=== PATIENT | female | born 1975 | race Caucasian/White ===

== ENCOUNTER 2024-04-21 13:50 | Emergency (ER) | payer OTHER, SELFPAY ==
[2024-04-21 14:11] VITALS: BP 159/77; PULSE 63; RESP 16; TEMP 36.6; O2SAT 100
--- NOTE | 2024-04-21 14:54 | ED_ITS ---
HPI - Eye Problem General Chief complaint: Eye Problems Stated complaint: Right Eye Pain Time Seen by Provider: 04/21/24 14:45 Source: patient, RN notes reviewed and old records reviewed Mode of arrival: ambulatory Limitations: no limitations History of Present Illness HPI Narrative: 48 year old female presents to express care with complaints of right eye becoming red with some mucous drainage and today her left eye is also having some redness and was crusted this morning. Patient reports some discomfort to her eyes denies any sharp pain or any visual changes states some light sensitivity.Patient reports that she has used warm and cold compresses to her eyes. chief complaint: eye redness Onset (ago): day(s) (Thursday right eye 2 days today left eye) Eye Symptoms: redness, discharge, photophobia and other (some discomfort) Severity scale (1-10): 4 Treatments Prior to Arrival: other (warm and cold compresses) Related Data Home Medications Medication Instructions Recorded Confirmed aspirin 81 mg tablet,delayed 81 mg PO DAILY 04/21/24 04/21/24 release glipizide 5 mg tablet 5 mg PO DAILY 04/21/24 04/21/24 levothyroxine 100 mcg tablet 100 mcg PO DAILY 04/21/24 04/21/24 naproxen 500 mg tablet 500 mg PO BID 04/21/24 04/21/24 rosuvastatin 40 mg tablet 40 mg PO DAILY 04/21/24 04/21/24 valacyclovir 500 mg tablet 500 mg PO DAILY 04/21/24 04/21/24 Allergies Allergy/AdvReac Type Severity Reaction Status Date / Time No Known Allergies Allergy Verified 04/21/24 14:10 Review of Systems Review of Systems: CONSTITUTIONAL: Denies fever, chills, or sweats. EYES: Denies visual changes. Reports redness,, irritation, discharge to bilateral eyes with some discomfort and photophobia ENT: Denies rhinorrhea, congestion, sore throat, or otalgia. CARDIOVASCULAR: Denies chest pain, palpitations, or edema. RESPIRATORY: Denies cough or dyspnea. SKIN: Denies rash or itching. NEUROLOGIC: Denies headache All systems reviewed & are unremarkable except as noted in HPI and below PMFSH Past Medical History Medical History (Updated 04/26/24 @ 10:25 by Sasha Markham NP) Diabetes Elevated cholesterol Hypertension Hypothyroid Social History Social History (Updated 04/26/24 @ 10:19 by Sasha Markham NP) Smoking status: Smoker, status unknown Alcohol intake: unknown Substance use: unknown Gender identity (if verbalized by the patient): Female Comments At time of signature, agree with nursing past medical, surgical, social and family history. There is no relevant family history pertinent to the presenting complaint Exam Narrative: GENERAL: Well-appearing, well-nourished, and in no acute distress. HEAD: Normocephalic, atraumatic. EYES: PERRLA and EOMI. Upper and lower eyelids unremarkable. No periorbital cellulitis noted. Sclera and conjunctivae injected bilateral eyes with mucous discharge, no acute eye pain no visual changes, reports some photosensitivity ENT: Nares clear, no rhinorrhea or epistaxis. Mucous membranes moist. NECK: Supple. no lymphadenopathy CHEST: Clear to auscultation. No respiratory distress. SAO2 100% on room air HEART: Regular rate and rhythm. No murmur heard. Normal peripheral pulses. SKIN: Warm, dry, no rash. NEURO: No focal deficits. Alert and oriented x3. Course Course Emergency Course: Patient is aware of diagnosis, understands and agrees to treatment plan. Anticipatory guidance given. Patient agrees to follow-up as directed and is aware of reasons to seek care at the emergency department. Portions of this record may have been created with voice recognition software Level of Care: Express Care Visit Vital Signs Vital signs: Vital Signs Temperature 36.6 C 04/21/24 14:11 Pulse Rate 63 04/21/24 14:11 Respiratory Rate 16 04/21/24 14:11 Blood Pressure 159/77 H 04/21/24 14:11 Pulse Oximetry 100 04/21/24 14:11 Oxygen Delivery Room Air 04/21/24 14:11 Temperature 36.6 C 04/21/24 14:11 Pulse Rate 63 04/21/24 14:11 Respiratory Rate 16 04/21/24 14:11 Blood Pressure 159/77 H 04/21/24 14:11 Pulse Oximetry 100 04/21/24 14:11 Oxygen Delivery Room Air 04/21/24 14:11 Reviewed MDM - Eye Problem MDM Narrative Medical decision making narrative: Consideration of the following conditions may be warranted for the presenting problem, they are not final diagnoses: Bacterial conjunctivitis, allergic conjunctivitis, viral conjunctivitis, foreign body, blepharitis, chalazion, hordeolum, corneal abrasion.? Exam findings show no acute concerns or changes; patient is non-toxic appearing and is in no distress.? Patient is appropriate for outpatient treatment and follow-up. Differential Diagnosis Differential diagnosis: Likely conjunctivitis, subconjunctival hemorrhage and other (Mucous drainage right eye) Medical Records Attestation: I reviewed the patient's medical records. Critical Care Time Critical Care Time Critical Care Time: No Discharge Plan Discharge Clinical Impression: Conjunctivitis Patient Disposition: Home, Self-Care Condition: Stable Instructions: Antibiotic Form, How to Use Eye Drops (ED), Conjunctivitis (ED) Additional Instructions: Cold compresses to the eyes for comfort May need warm compresses to remove debris in the morning When cleaning the eyes used a washcloth in one direction then change washcloths or use a cotton ball in one direction and then his cotton balls Eyedrops as directed--may be more soothing if left in the refrigerator Do not share medicine--do not touch the eye with the medicine Tylenol or ibuprofen for pain Avoid screen time--television, computer, tablet or phone. Also no reading or driving Follow-up with PCP or regulatory process manager as directed 48 hours If your symptoms persist, change or worsen significantly before you can contact your personal physician then please, without delay, go to the emergency department for further evaluation. Follow-up with PCP in 7-10 days or sooner if needed Follow up with PCP soon in regards to your blood pressure which is elevated above threshold for referral. Blood pressure above 120/80 may indicate pre- hypertension. 159/77 Prescriptions: New ofloxacin 0.3 % drops See Rx Instructions .ROUTE .COMPLEX Qty: 10 0RF Rx Instructions: put 1-2 drps into affected eye(s) every 2-4 h x 2 days, then 1-2 drps 4 times/day days 3-7 No Action valacyclovir 500 mg tablet 500 mg PO DAILY aspirin 81 mg tablet,delayed release (DR/EC) 81 mg PO DAILY levothyroxine 100 mcg tablet 100 mcg PO DAILY glipizide 5 mg tablet 5 mg PO DAILY naproxen 500 mg tablet 500 mg PO BID rosuvastatin 40 mg tablet 40 mg PO DAILY Follow-up/Referrals: PHYSICIAN NOT ON STAFF,NONSTAFF [Primary Care Provider] - Time of Disposition: 14:57 Quality Jeniffer Coma Scale Eyes: Open Verbal: Oriented and Alert Motor: Follows Commands Jeniffer Coma Total Score: 15
== END 2024-04-21 15:01 | disposition home or self-care (01) ==
PROVIDERS: Emergency Provider Registered Nurse
DX: H10.9 Unspecified conjunctivitis (principal); Z79.82 Long term (current) use of aspirin
CPT/HCPCS: 99203; G0463

== ENCOUNTER 2024-12-27 18:25 | Emergency (ER) | payer OTHER, SELFPAY ==
[2024-12-27 18:27] VITALS: BP 143/72; PULSE 77; RESP 20; TEMP 36.8; O2SAT 100
--- OUTSIDE RECORDS SUMMARY | 2024-12-27 18:27 | XMS_ITS | Referral Summary ---
Author Organization [facility] Address [address] [place] [address] Care Team Providers Care Marine Safety Officer Name Role Phone Marzena Gomes BOWLING [employer]LEY FLOORS INSTALLER Primary Care Provider Allergies Active Allergy Reactions Criticality Noted Date Comments Morphine Anaphylaxis High 04/18/2024 Medications ALPRAZOLAM ORALIndications:an xiety Take 1 mg by mouth 3 (three) times a day as needed Active amLODIPine (NORVASC) 5 mg tablet Take 1 tablet (5 mg total) by mouth daily 30 tablet 11 06/04/20 19 Active metoprolol XL (TOPROL-XL) 50 mg 24 hr tablet Take 1 tablet (50 mg total) by mouth daily 30 tablet 11 06/04/20 19 Active nitroglycerin (NITROSTAT) 0.4 mg SL tabletIndications: Chest Pain Place 1 tablet (0.4 mg total) under the tongue every 5 (five) minutes as needed for chest pain for up to 1 dose 90 tablet 2 06/03/20 19 Active acyclovir (ZOVIRAX) 400 mg tablet Take 1 tablet (400 mg total) by mouth daily 03/10/20 17 Active cyclobenzaprine (FLEXERIL) 10 mg tablet Take 1 tablet (10 mg total) by mouth 3 (three) times a day as needed 06/14/20 19 Active docosanol (ABREVA) 10 % cream Apply topically 5 (five) times a day 04/07/20 18 Active blood glucose diagnostic strip 1 each by Not Applicable route daily 02/10/20 19 Active blood glucose diagnostic (glucose blood) strip Test blood sugar 4x daily. 06/07/20 19 Active blood glucose diagnostic (OneTouch Ultra Blue Test Strip) strip by Not Applicable route 4 (four) times a day 08/17/19 21 Active OneTouch Delica Plus Lancet 33 gauge misc USE TO TEST BLOOD GLUCOSE FOUR TIMES DAILY DIRECTED 08/17/19 21 Active TechLITE Pen Needle 32 gauge x 5/32 needle USE FOUR TIMES DAILY DIRECTED 08/18/19 21 Active ondansetron ODT (ZOFRAN-ODT) 4 mg disintegrating tablet Dissolve 1 tablet oral every 4 hours as needed for nausea or vomiting. 15 tablet 08/29/19 22 Active rosuvastatin (CRESTOR) 40 mg tablet TAKE 1 TABLET(40 MG) BY MOUTH DAILY 90 tablet 3 10/01/19 23 Active metoclopramide (REGLAN) 10 mg tablet Take 1 tablet (10 mg total) by mouth every 8 (eight) hours as needed (nausea and vomiting) for up to 5 days 15 tablet 05/05/20 23 Active Additional Information Patient not taking.Reported on 03/29/2024 pen needle, diabetic (BD Ultra-Fine Short Pen Needle) 31 gauge x 5/16 needle Active blood-glucose meter,continuous (Dexcom G6 Toy Painter) misc USE DIRECTED BY OFFICE Active NAPROXEN, BULK, MISC Take 400 mg by mouth 2 (two) times a day Active blood-glucose transmitter (Dexcom G6 Transmitter) device 1 Device continuously Use to monitor blood sugar continuously, change every 90 days e11.65 1 each 3 05/24/20 24 Active blood-glucose sensor device Use to continuously monitor glucose, change every 10 days 9 each 3 05/25/20 24 Active gabapentin (NEURONTIN) 300 mg capsule Take 1 capsule (300 mg total) by mouth 2 (two) times a day 60 capsule 1 06/29/19 25 Active insulin lispro (HumaLOG, ADMELOG) 100 unit/mL pen for injection Take 3 times daily with meals according to sliding scale. Total maximum daily dose is 30 units. 9 mL 3 07/11/19 25 Active ergocalciferol (VITAMIN D) 50,000 unit capsule Take 1 capsule (50,000 Units total) by mouth 07/06/[address] (VOLTAREN) 75 mg EC tablet TAKE 1 TABLET BY MOUTH TWICE DAILY FOR 14 DAYS NEEDED FOR PAIN 07/07/19 25 Active levothyroxine (SYNTHROID) 100 mcg tablet Take 1 tablet (100 mcg total) by mouth every morning Active lisinopril-hydroCH LOROthiazide (ZESTORETIC) 20-25 mg per tablet Take 1 tablet by mouth daily 07/06/19 25 Active aspirin 81 mg enteric coated tablet Take 1 tablet (81 mg total) by mouth daily 06/29/19 25 Active tirzepatide (Mounjaro) 2.5 mg/0.5 mL pen injector injection Inject 0.5 mL (2.5 mg total) under the skin once a week 2 mL 6 07/19/19 25 Active glipiZIDE XL (GLUCOTROL XL) 10 mg 24 hr tabletIndications: type 2 diabetes mellitus Take 1 tablet (10 mg total) by mouth daily 30 tablet 11 07/19/19 25 026 Active insulin glargine 100 unit/mL (3 mL) pen for injection Inject 25 units under the skin once daily 20 mL 6 08/01/19 25 Active Active Problems Problem Noted Date Diagnosed Date Severe obesity 04/18/2024 Impingement syndrome of left shoulder 11/14/2020 Arthritis of left acromioclavicular joint 2020 Biceps tendinitis of left upper extremity 2020 Bilateral carotid artery stenosis 05/25/2020 Assessment & Plan (05/25/2020 11:26 AM POWER LINE INSTALLER): Patient's carotid disease was mild and probably only needs every 2-3 year follow-up with ultrasound. 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 If no evidence of ischemia or new wall motion abnormality is present, no further cardiovascular workup will be required. We will tentatively review her care on an annual or as-needed basis. Assessment & Plan (06/03/2019 4:02 AM POWER LINE INSTALLER): Concerning for cardiac etiology. Patient has risk factors including uncontrolled diabetes, hypertension, hyperlipidemia, obesity and tobacco use. Patient's grandparents also had MIs. Troponins negative x4. Will order a stress test. Cardiology was consulted. P.r.n. Nitroglycerin which seems to help patient's pain. Uncontrolled type 2 diabetes mellitus with hyper glycemia 06/03/2019 Assessment & Plan (06/03/2019 4:05 AM POWER LINE INSTALLER): Secondary to noncompliance. Patient is supposed to be on 36 units of Lantus q.h.s., 26 units of lispro t.i.d. Meals with a sliding scale. Patient stopped taking her medications a few months ago for no reason. Patient follows with Dr. Bullard. Sugars were as high as 400 at home. Currently improved. Will continue with mid dose sliding scale. Patient is NPO for stress test. Will resume Lantus at 29 units nightly this evening. Continue to monitor. Patient was counseled on the importance of compliance with insulin regimen for blood sugar controlled to prevent complications including blindness, kidney disease needing dialysis, neuropathy. Essential hypertension 06/03/2019 Assessment & Plan (06/03/2019 4:04 AM POWER LINE INSTALLER): Pressures are under control. Will continue metoprolol with hold parameters. Will hold lisinopril and hydrochlorothiazide for now as I suspect patient may be dehydrated due to hyperglycemia and will be receiving IV fluids. Will continue to monitor. Mixed hyperlipidemia 06/03/2019 Assessment & Plan (06/03/2019 4:00 AM POWER LINE INSTALLER): Continue Lipitor Class 2 obesity in adult 06/03/2019 Lactic acidosis 06/03/2019 Assessment & Plan (06/03/2019 4:14 AM POWER LINE INSTALLER): Suspect this is from dehydration from hyperglycemia. Currently resolved. Class 3 severe obesity due t o excess calories with serious comorbidity and body mass index (BMI) of 40.0 to 44.9 in adult 02/07/2019 Right upper quadrant abdominal pain 07/14/2018 Neck pain 04/07/2018 Diabetic ketoacidosis with c francisco associated with type 1 diabetes mellitus 07/12/2017 Assessment & Plan (07/12/2017 8:31 PM POWER LINE INSTALLER): The patient is type 1 diabetic follows up with Endocrinology per patient's report poorly-controlled blood sugars had been all over the places. Will check hemoglobin A1c and TSH T4 magnesium and phosphorus. Admitted for DKA protocol Insulin drip, IV fluid bolus with normal saline followed with a continuous infusion with normal saline. BMP every 2 hr to follow up for the electrolyte imbalances and replace as needed. Switch to D5 half-normal saline when blood sugars to he the will cross cover with subcutaneous short-acting insulin before turning off the insulin drip Will keep her NPO for now and advance her diet diet when she is more awake Vaginal itching 07/12/2017 Assessment & Plan (07/12/2017 8:32 PM POWER LINE INSTALLER): In the setting of diabetes probably Marlena vaginitis. Post started already on fluconazole. She continues having significant itching also will treat with a topical miconazole vaginally. Metabolic acidosis 07/12/2017 Assessment & Plan (07/12/2017 8:35 PM POWER LINE INSTALLER): Likely multifactorial possible UTI in the setting of significantly elevated white blood cell count. Patient was started already on Rocephin will continue with that. Patient was unable to void yet- will get the urine sample and follow up with urine culture results. On physical exam patient with significant suprapubic and CVA tenderness. Suspect concomitant pyelonephritis. Will get blood cultures as well. Leukocytosis 07/12/2017 Assessment & Plan (07/12/2017 8:56 PM POWER LINE INSTALLER): The so far not identified source of infection suspect UTI versus pyelonephritis. Patient was complaining of earache however ear exams are normal. The started on Rocephin will continue with that strict I&Os urine cultures and blood cultures to be obtained Streaked tight stenosis If urine output is still down and I been able to void will give her another bolus of IV fluids with normal saline 1000 cc Diarrhea 07/12/2017 Assessment & Plan (07/12/2017 8:55 PM POWER LINE INSTALLER): New onset diarrhea , no previous history of chronic diarrhea . Patient denies any recent antibiotic use. No recent hospitalizations. Possibly infectious will check stool studies, will get flu swab Hyperkalemia 07/12/2017 Assessment & Plan (07/12/2017 8:55 PM POWER LINE INSTALLER): In the setting or diabetic ketoacidosis. Likely due to elevated blood sugars. Correct underlying cause monitor with BMP every 2 hr and replace as needed per hypokalemia protocol Dehydration 07/12/2017 Assessment & Plan (07/12/2017 8:54 PM POWER LINE INSTALLER): Multifactorial due to uncontrolled type 1 diabetes with DKA possible UTI and diarrhea. IV fluids strict I&Os correct underlying causes Sepsis 07/12/2017 Overview (07/12/2017): Assessment & Plan (07/12/2017 9:03 PM POWER LINE INSTALLER): Patient meets the criteria for sepsis with elevated white blood cell count hypertension tachycardia fever. Suspect urosepsis. Will obtain blood cultures, urine cultures are pending. Repeat ABGs and check lactate Started on Rocephin. Blood pressure on lower side will bolus with normal saline 1000 cc STAT NOW, strict I&Os Pharyngeal disorder 04/07/2016 Left-sided low back pain without sciatica 2015 Arthralgia of both elbows 05/24/2015 Type 2 diabetes mellitus wit h microalbuminuria, with long-term current use of insulin 05/08/2015 Anxiety 05/04/2015 Diabetic ketoacidosis withou t coma associated with type 1 diabetes mellitus Resolved Problems Problem Noted Date Diagnosed Date Resolved Date Bilateral carotid bruits 07/19/201909/2019 Immunizations Immunization Administration Dates Next Due Influenza, Quadrivalent, Spl it, Preservative Free, Intramuscular 06/03/2019 Social History Tobacco Use Types Packs/Day Years Used Date Smoking Tobacco: Some Days Cigarettes Smokeless Tobacco: Never Tobacco Cessation:Ready to Q uit: Not Asked; Counseling Given: Not Answered Comments:less than 5 cigs per week Alcohol Use Standard Drinks/Week Comments Yes 0 (1 standard drink = 0.6 oz pur e alcohol) AUDIT-C Answer Date Recorded Frequency of Alcohol Consumption 2-4 times a thu06/02/2019 Average Number of Drinks 7 to 9 019 Frequency of Binge Drinking Monthly 05/22 Personal Safety Answer Date Recorded Have you ever been in or are you currently in a harmful physical or emotional relationship or is someone making you feel afraid or unsafe? Denies 04/25/2024 Comments No Sex and Gender Information Value Date Recorded Sex Assigned at Not on file Legal Sex Female 4:49 PM POWER LINE INSTALLER Gender Identity Not on file Sexual Orientation Not on file Last Filed Vital Signs Vital Sign Reading Time Taken Comments Blood Pressure 132/62 07/19/2024 4:08 PM POWER LINE INSTALLER Pulse 63 06/29/2024 2:45 PM POWER LINE INSTALLER Temperature 36.6 C (97.9 F) 04/25/2024 4:51 PM POWER LINE INSTALLER Respiratory Rate 18 04/25/2024 9:45 PM POWER LINE INSTALLER Oxygen Saturation 97% 04/25/2024 9:45 PM POWER LINE INSTALLER Inhaled Oxygen Concentration - - Weight 108.7 kg (239 lb 11.2 oz) 07/19/2024 4:08 PM POWER LINE INSTALLER Height 165.1 cm (5' 5) 07/19/2024 4:08 PM POWER LINE INSTALLER Body Mass Index 39.89 07/19/2024 4:08 PM POWER LINE INSTALLER Plan of Treatment Not on file Medical Devices Implanted Type Area Manager Image Device Identifier Shelf Expiration Date Model / Serial / Lot [employer] [id number] Angio-Seal Evolution 6fr .035in Guidewire Bypass Tube Suture - [id number] Implanted:Qty: 1 on 06/03/2019 by Neeraj Alvarado MD at [facility] Other - see comments [employer] 01/20/2020 [id number] / / [id number] Procedures Procedure Name Priority Date/Time Associated Diagnosis Comments POCT HEMOGLOBIN A1C Routine 07/19/2024 4 :15 PM POWER LINE INSTALLER Type 2 diabetes mellitus with hyperglycemia, with long-term current use of insulin (HCC) EGFR STAT 04/25/2024 5:09 PM POWER LINE INSTALLER RETINAVUE SCANNER - OU - BOTH EYES Routine 04/18/2024 Type 2 diabetes mellitus with hyperglycemia, with long-term current use of insulin (HCC) LIPID PANEL Routine 06/03/2019 1:25 AM POWER LINE INSTALLER TSH STAT 06/02/2019 4:14 PM POWER LINE INSTALLER from Last 3 Months or Most Recently Relevant to Health Maintenance Results * (ABNORMAL) POCT hemoglobin A1c (07/19/2024 4:15 PM POWER LINE INSTALLER) Hemoglobin A1C, POC 10.2 4.0 - 5.6 % Blood 07/19/2024 4:15 PM POWER LINE INSTALLER us Екатерина Doran DO POINT OF CARE TEST ORDERABL ES Final Result * eGFR (04/25/2024 5:09 PM POWER LINE INSTALLER) eGFR >90 >=60 mL/min/1. 73 m2 Comment: Interpretive Data Reference Interval Normal >/= 90 mL/min/1.73m2 Mildly decreased* 60 - 89 mL/min/1.73m2 Mildly to moderately decreased 45 - 59 mL/min/1.73m2 Moderately to severely decreased 30 - 44 mL/min/1.73m2 Severely decreased 15 - 29 mL/min/1.73m2 Kidney Failure < 15 mL/min/1.73m2 *Relative to young adult level Estimated glomerular filtration rate is determined by the 2020 CKD-EPI equation recommended by the National Kidney Foundation (A Unifying Approach to GFR Estimation: Recommendations of the NKF-ASK Task Force on Reassessing the Inclusion of Race in Diagnosing Kidney Disease, JASN 2020). The CKD-EPI equation should not be used for patients with unstable renal function and has not been validated in children and those over 70. Current interpretive data was last reviewed 2021. Blood 04/25/2024 5:09 PM POWER LINE INSTALLER 04/25/2024 5:13 PM POWER LINE INSTALLER us Maritza Murphy MD LAB BLOOD ORDERABLE S Final Result [facility] [place] [facility] Department of [employer] [place], [place] [id number] * RetinaVue Scanner - OU - Both Eyes (04/18/2024) Anatomical Region Laterality Modality Head Fundus Photograp hy 04/18/2024 Екатерина Doran DO OPHTH PHOTOGRAPHY Final Res ult * (ABNORMAL) Lipid panel (06/03/2019 1:25 AM POWER LINE INSTALLER) Cholesterol 137 30 - 199 mg/dL [facility] ([place]) Comment: Interpretive Data Ages < or = 19 years Acceptable: <170 mg/dL Borderline high: 170-199 mg/dL High: >or= 200 mg/dL Ages > or = 20 years Desirable: <200 mg/dL Borderline high: 200-239 mg/dL High: >or= 240 mg/dL Literature References: 1. Expert Panel on Integrated Guidelines for Cardiovascular Health and Risk Reduction in Children and Adolescents. Pediatrics 2011;128:S213 2. NCEP Expert Panel. Circulation 2004;110:227 Current Interpretive Data was last revised on 2018. Triglycerides 138 <=149 mg/dL [facility] ([place]) Comment: Interpretive Data Ages < or = 9 years Acceptable: <75 mg/dL Borderline high: 75-99 mg/dL High: >or= 100 mg/dL Ages 10 to 20 years Acceptable: <90 mg/dL Borderline high: 90-129 mg/dL High: >or= 130 mg/dL Ages > or = 20 years Desirable: <150 mg/dL Borderline high: 150-199 mg/dL High: 200-499 mg/dL Very high: >or= 499 mg/dL Literature References: 1. Expert Panel on Integrated Guidelines for Cardiovascular Health and Risk Reduction in Children and Adolescents. Pediatrics 2011;128:S213 2. NCEP Expert Panel. Circulation 2004;110:227 Current Interpretive Data was last revised on 2018. HDL 33(L) >=40 mg/dL [facility] ([place]) Comment: Interpretive Data Ages < or = 19 years Acceptable: >45 mg/dL Borderline low: 40-45 mg/dL Low: <40 mg/dL Ages > or = 20 years Desirable: >or= 60 mg/dL Low: <40 mg/dL Literature References: 1. Expert Panel on Integrated Guidelines for Cardiovascular Health and Risk Reduction in Children and Adolescents. Pediatrics 2011;128:S213 2. NCEP Expert Panel. Circulation 2004;110:227 Current Interpretive Data was last revised on 2018. LDL, calculated 76 <=129 mg/dL [facility] ([place]) Comment: Interpretive Data Ages < or = 19 years Acceptable: <110 mg/dL Borderline high: 110-129 mg/dL High: >or= 130 mg/dL Ages > or = 20 years Optimal: <100 mg/dL Near optimal: 100-129 mg/dL Borderline high: 130-159 mg/dL High: >160 mg/dL Literature References: 1. Expert Panel on Integrated Guidelines for Cardiovascular Health and Risk Reduction in Children and Adolescents. Pediatrics 2011;128:S213 2. NCEP Expert Panel. Circulation 2004;110:227 Current Interpretive Data was last revised on 2018. Non-HDL Cholesterol 104 mg/dL [facility] ([place]) Comment: Interpretive Data Ages < or = 19 years Acceptable: <120 mg/dL Borderline high: 120-144 mg/dL High: >145 mg/dL Ages > or = 20 years When triglycerides are >200 mg/dL, Non-HDL cholesterol is a secondary target of therapy with treatment goals that are 30 mg/dL greater than the LDL cholesterol target. Literature References: 1. Expert Panel on Integrated Guidelines for Cardiovascular Health and Risk Reduction in Children and Adolescents. Pediatrics 2011;128:S213 2. NCEP Expert Panel. Circulation 2004;110:227 Current Interpretive Data was last revised on 2018. Chol/HDL ratio 4 [facility] ([place]) Blood specimen (specimen) 06/03/2019 1:25 AM POWER LINE INSTALLER 06/03/2019 1:27 AM POWER LINE INSTALLER us Maritza Murphy MD LAB BLOOD ORDERABLE S Final Result [facility] ([place]) 1 [facility] Department [place] [address] * TSH (06/02/2019 4:14 PM POWER LINE INSTALLER) Thyroid Stimulating Hormone 3.32 0.30 - 4.20 mcIUnit/mL [facility] ([place]) Blood specimen (specimen) 06/02/2019 4:14 PM POWER LINE INSTALLER 06/02/2019 4:27 PM POWER LINE INSTALLER us Maritza Murphy MD LAB BLOOD ORDERABLE S Final Result [facility] ([place]) 1 [facility] Department [place] [address] from Last 3 Months or Most Recently Relevant to Health Maintenance Insurance [facility] Advance Directives For more information, please contact: [phone] * Full Code (Latest Code Status on File) Date Activated Date Inactivated Comments 06/02/2019 8:32 PM 06/03/2019 10:19 PM * Full Code Date Activated Date Inactivated Comments 07/12/2017 7:52 PM 07/16/2017 3:59 PM * Full Code Date Activated Date Inactivated Comments 07/12/2017 11:40 AM 07/12/2017 7:52 PM Care Teams Marine Safety Officer Relationship Specialty Start Date End Date Marzena Gomes NP [address] [place] [address] [facility] [address] [place] [address] PCP - General Nurse Practitioner 04/25/24
--- OUTSIDE RECORDS SUMMARY | 2024-12-27 18:27 | XMS_ITS | Encounter Summary ---
Author Organization [facility] Address [address] [place] [address] Phone Care Team Providers Care Heater Worker Name Role Phone Fritz Crook MD Primary Care Provider [phone] Fadi Bullard MD Unavailable Harini Heath APRN, [facility] Unavailable [phone] Fritz Crook MD Primary Care Provider [phone] Marzena Gomes LOADING CHECKER, [facility] Primary Care Provider Reason for Visit * Reason Comments Medication Refill Encounter Details Date Type Department Care Team (Late st Contact Info) Description 05/31/2020 Refill [facility] - Family Medicine [facility] [address] [place] [id number] Fritz Crook MD #[address] [address] Medication Refill Social History Tobacco Use Types Packs/Day Years Used Date Smoking Tobacco: Never Smokeless Tobacco: Never Alcohol Use Standard Drinks/Week Comments Yes 4 (1 standard drink = 0.6 oz pur e alcohol) PHQ-2 Answer Date Recorded PHQ-2 Score 0 02/28/2019 Sexually Active Control Partners Comments Yes Male Comments No Sex and Gender Information Value Date Recorded Sex Assigned at Not on file Legal Sex Female 11:11 PM CDT Gender Identity Not on file Sexual Orientation Not on file documented as of this encounter Miscellaneous Notes * Telephone Encounter - Fritz Crook MD - 05/31/2020 4:19 PM CST Prescription pending signature CHILL TECHNICIAN * Telephone Encounter - Suzan Ballard RN - 05/31/2020 3:11 PM CST Last OV 02/17/20 - follow up 06/20/20 - last Rx 05/01/20 Medication failed the protocol, provider to review and approve the medication order if appropriate. Requested Prescriptions Pending Prescriptions Disp Refills ALPRAZolam (XANAX) 1 MG Tablet [Pharmacy Med Name: ALPRAZOLAM 1MG TABLETS] 80 Tab 0 Sig: TAKE 1 TABLET BY MOUTH THREE TIMES DAILY NEEDED FOR ANXIETY Not Delegated - Psychiatry: Anxiolytics/Hypnotics Failed - 05/31/2020 1:02 PM Failed - This refill cannot be delegated Passed - Valid encounter within last 6 months Past Office Visits Recent Outpatient Visits 3 months ago Essential hypertension [facility] Fritz Durbin MD 7 months ago Essential hypertension [facility] Fritz Durbin MD 11 months ago Type 2 diabetes mellitus without complication, with long-term current use of insulin ([facility]) [facility] Fritz Pickett MD 1 year ago Anxiety [facility] Fritz Durbin MD 1 year ago Essential hypertension [facility] Fritz Durbin MD Upcoming Appointments Future Appointments In 2 weeks Lab, [facility] PHYSICIAN GROUP LAB, [facility] In 2 weeks Fritz Crook MD [facility] TING Bolanos GYPSUM CALCINER - Recent and Past Visits Recent Visits Date Type Provider Dept 02/17/20 Office Visit Fritz Crook MD [facility] 10/05/19 Telemedicine Fritz Crook MD [facility] 07/04/19 [facility] Showing recent visits within past 460 days with a meds authorizing provider and meeting all other requirements Future Appointments Date Type Provider Dept 06/20/20 Appointment Fritz Crook MD [facility] Showing future appointments within next 90 days with a meds authorizing provider and meeting all other requirements CHILL TECHNICIAN documented in this encounter Plan of Treatment Upcoming Encounters Date Type Department Care Team (Late st Contact Info) Description 03/10/2025 2:30 PM CDT Office Visit [facility] - Endocrinology - [place] [address] [place] [address] Fadi Bullard MD #[address] [address] documented as of this encounter Visit Diagnoses Diagnosis Anxiety and depression Dysthymic disorder documented in this encounter Additional Health Concerns Infection Onset Date Last Indicated Resolved Time COVID - 19 06/18/2021 06/18/2021 07/08/2021 12:1 6 AM COOK CHILL TECHNICIAN COVID - 19 Confirmed 06/18/2021 06/18/2021 022 12:16 AM COOK CHILL TECHNICIAN Assessment Noted Time PHQ-9 Depression Total Score: 0 07/04/19 20 8:10 AM COOK CHILL TECHNICIAN documented as of this encounter Care Teams Heater Worker Relationship Specialty Start Date End Date Fritz Crook MD [facility] [address] PCP - General Family Medicine 05/08/15 04/05/22 Fritz Crook MD [address] [address] PCP - General Primary Care 12/10/22 08/08/24 Marzena Gomes, LOADING CHECKER, W[employer] PAN [employer]ER [address] [place] [address] PCP - General Advanced Practice Nurse 12/07/24 Fadi Bullard MD [facility] [address] [place] [address] Consulting Physician Internal Medicine 01/08/16 5 Harini Heath APRN, WET PAN MIXER 2 [facility] [address] [place] [address] Certified Nurse Practitioner 06/24/16 documented as of this encounter
--- OUTSIDE RECORDS SUMMARY | 2024-12-27 18:27 | XMS_ITS | Encounter Summary ---
Author Organization [facility] Address [address] [place] [address] Phone Care Team Providers Care Senior Editor Name Role Phone Fadi Bullard MD Unavailable Harini Heath APRN, PIPE WASH[employer] Unavailable [phone] Fritz Crook MD Primary Care Provider [phone] Marzena Gomes CHAIN SALES REPRESENTATIVE, [facility] Primary Care Provider Reason for Visit * Reason Comments Medication Refill Encounter Details Date Type Department Care Team (Late st Contact Info) Description 04/10/2023 Refill [facility] - Endocrinology - [place] [address] [place] [address] Fadi Bullard MD #[address] [address] Medication Refill Social History Tobacco Use Types Packs/Day Years Used Date Smoking Tobacco: Light Smoker Cigarettes Smokeless Tobacco: Never Comments:Socially Alcohol Use Standard Drinks/Week Comments Yes 4 (1 standard drink = 0.6 oz pur e alcohol) Socially PHQ-2 Answer Date Recorded Total Score - Questions 1-9 5 08/2020 Education Answer Date Recorded What is the highest level of school you have completed or the highest degree you have received? Associate degree: academic program 07/25/2020 Sexually Active Control Partners Comments Yes [employer].D. Male Comments No Sex and Gender Information Value Date Recorded Sex Assigned at Not on file Legal Sex Female 11:11 PM CDT Gender Identity Not on file Sexual Orientation Not on file documented as of this encounter Miscellaneous Notes * Telephone Encounter - Sherry Montesinos, RN - 04/13/2023 1:33 PM CDT Requested Prescriptions Pending Prescriptions Disp Refills ??? Continuous Blood Gluc Sensor (Dexcom G6 Sensor) Misc [Pharmacy Med Name: DEXCOM G6 SENSOR (3 PACK)] 3 Each 3 Sig: CHANGE EVERY 10 DAYS Next appt: Message left to schedule follow up. documented in this encounter Plan of Treatment Upcoming Encounters Date Type Department Care Team (Late st Contact Info) Description 03/10/2025 2:30 PM CDT Office Visit [facility] - [place] [address]2 [facility] [place] [address] Fadi Bullard MD #[address] [address] documented as of this encounter Visit Diagnoses Not on filedocumented in this encounter Additional Health Concerns Assessment Noted Time PHQ-9 Depression Total Score: 5 07/25/19 21 4:00 PM HYDRAULIC DESIGN ENGINEER documented as of this encounter Care Teams Senior Editor Relationship Specialty Start Date End Date Fritz Crook MD #[address] [address] PCP - General Primary Care 12/10/22 08/08/24 Marzena Gomes, CHAIN SALES REPRESENTATIVE, PIPE WASHER [address] [place] [address] PCP - General Advanced Practice Nurse 12/07/24 Fadi Bullard MD #[address] [phone] Consulting Physician Internal Medicine 01/08/16 5 Harini Heath APRN, PIPE WASHER 2 [facility] [address] [place] [address] Certified Nurse Practitioner 06/24/16 documented as of this encounter
--- OUTSIDE RECORDS SUMMARY | 2024-12-27 18:27 | XMS_ITS | Encounter Summary ---
Author Organization [facility] Address [address] [place] [address] Phone Care Team Providers Care Oil Filters Inspector Name Role Phone Fadi Bullard MD Unavailable Harini Heath APRN, PHYSICIAN Unavailable [phone] Fritz Crook MD Primary Care Provider [phone] Marzena Gomes HYBRID TESTER, [facility] Primary Care Provider Reason for Visit * Reason Comments Medication Refill Encounter Details Date Type Department Care Team (Late st Contact Info) Description 12/23/2023 Refill [facility] - Family Medicine [facility] [address]2 [place] [phone] Fritz Crook MD #[address] [address] Medication Refill Social History Tobacco Use Types [...] on file documented as of this encounter Plan of Treatment Upcoming Encounters Date Type Department Care Team (Late st Contact Info) Description 03/10/2025 2:30 PM CDT Office Visit [facility] - Endocrinology [facility] #[address] [place] [address] Fadi Bullard MD #[address] [address] documented as of this encounter Visit Diagnoses Not on filedocumented in this encounter Additional Health Concerns Assessment Noted Time PHQ-9 Depression Total Score: 5 07/25/19 21 4:00 PM BUS AIDE documented as of this encounter Care Teams Oil Filters Inspector Relationship Specialty Start Date End Date Fritz Crook MD #[address] [address] PCP - General Primary Care 12/10/22 08/08/24 Marzena Gomes APRN, PHYSICIAN #2 [facility] [place] [address] PCP - General Advanced Practice Nurse 12/07/24 Fadi Bullard MD #[address] [address] Consulting Physician Internal Medicine 01/08/16 Harini Curran APRN, PHYSICIAN 2 [facility] [address] [place] [address] Certified Nurse Practitioner 06/24/16 documented as of this encounter
--- OUTSIDE RECORDS SUMMARY | 2024-12-27 18:27 | XMS_ITS | Encounter Summary ---
Author Organization [facility] Address [address] [place] [address] Phone Care Team Providers Care Chemical Dependency Professional Name Role Phone Fritz Crook MD Primary Care Provider [phone] Fadi Bullard MD Unavailable Harini Heath PLANING MACHINE OPERATOR, [facility] Unavailable [phone] Fritz Crook MD Primary Care Provider [phone] Marzena Gomes PLANING MACHINE OPERATOR, [facility] Primary Care Provider Reason for Visit * Reason Onset Date Comments Medication Refill 07/02/2020 Encounter Details Date Type Department Care Team (Late st Contact Info) Description 07/02/2020 Refill [facility] [address] [place] [address] Fritz Crook MD #[address] [address] Medication Refill Social History Tobacco Use Types [...] encounter Miscellaneous Notes * Telephone Encounter - Suzan Ballard RN - 07/03/2020 10:44 AM CST Error below - lab visit is 07/06/20 - OV 07/11/20 OR TECHNICAL PROGRAM MANAGER * Telephone Encounter - Suzan Ballard RN - 07/03/2020 10:43 AM CST OV 07/06/20 OR TECHNICAL PROGRAM MANAGER * Telephone Encounter - Suzan Ballard RN - 07/03/2020 10:32 AM CST Medication failed the protocol, provider to review and approve the medication order if appropriate. Requested Prescriptions Pending Prescriptions Disp Refills ALPRAZolam (XANAX) 1 MG Tablet 80 Tab 0 Sig: TAKE 1 TABLET BY MOUTH THREE TIMES DAILY NEEDED FOR ANXIETY Not Delegated - Psychiatry: Anxiolytics/Hypnotics Failed - 07/03/2020 10:23 AM Failed - This refill cannot be delegated Passed - Valid encounter within last 6 months Past Office Visits Recent Outpatient Visits 4 months ago Essential hypertension [facility] Fritz Durbin MD 9 months ago Essential hypertension [facility] Fritz Durbin MD 1 year ago Type 2 diabetes mellitus without complication, with long-term current use of insulin ([facility]) [facility] Fritz Pickett MD 1 year ago Anxiety [facility] Fritz Durbin MD 1 year ago Essential hypertension [facility] Fritz Durbin MD Upcoming Appointments Future Appointments In 3 days [facility] PHYSICIAN GROUP LAB, [facility] In 3 days Fadi Bullard MD [facility] Arrive at: Virtual Visit In 1 week Fritz Cro[facility] MD [facility] - Recent and Past Visits Recent Visits Date Type Provider Dept 02/17/20 Office Visit Fritz Crook MD [facility] 10/05/19 Telemedicine Fritz Crook MD [facility] 07/04/19 Office Visit Fritz Crook MD [facility] Showing recent visits within past 460 days with a meds authorizing provider and meeting all other requirements Future Appointments Date Type Provider Dept 07/11/20 Appointment Fritz Crook MD [facility] Showing future appointments within next 90 days with a meds authorizing provider and meeting all other requirements HYDROcodone-acetaminophen (NORCO) 10-325 MG Tablet 60 Tab 0 Sig: Take 1 Tab by mouth every 6 hours as needed (pain). Not Delegated - Analgesics: Opioid Agonist Combinations Failed - 07/03/2020 10:23 AM Failed - This refill cannot be delegated Passed - Valid encounter within last 6 months Past Office Visits Recent Outpatient Visits 4 months ago Essential hypertension [facility] Fritz Durbin MD 9 months ago [facility] 1 year ago Type 2 diabetes mellitus without complication, with long-term current use of insulin (HCC) [facility] Fritz Durbin MD 1 year ago Anxiety [facility] Fritz Durbin MD 1 year ago [facility] Upcoming Appointments Future Appointments In 3 days [facility] PHYSICIAN GROUP LAB, [facility] In 3 days Fadi Bullard MD [facility] Endocrinology [facility] Arrive at: Virtual Visit In 1 week Fritz Cro[facility] MD [facility] - Recent and Past Visits Recent Visits Date Type Provider Dept 02/17/20 Office Visit Fritz Crook MD [facility] 10/05/19 Telemedicine Fritz Crook MD [facility] 07/04/19 Office Visit Fritz Crook MD [facility] Showing recent visits within past 460 days with a meds authorizing provider and meeting all other requirements Future Appointments Date Type Provider Dept 07/11/20 Appointment Fritz Crook MD [facility] Showing future appointments within next 90 days with a meds authorizing provider and meeting all other requirements OR TECHNICAL PROGRAM MANAGER * Telephone Encounter - Erika Dawn - 07/02/2020 12:56 PM CST Received: []FAX [x]TELEPHONE CALL []MYCHART from: []PHARMACY [x]PATIENT/OTHER regarding medication management. Medication name and dose: Requested Prescriptions Pending Prescriptions Disp Refills ??? ALPRAZolam (XANAX) 1 MG Tablet 80 Tab 0 ??? HYDROcodone-acetaminophen (NORCO) 10-325 MG Tablet 60 Tab 0 Sig: Take 1 Tab by mouth every 6 hours as needed (pain). Quantity: (30 day, 90 day, 3 monthly scripts) 30 Pharmacy preference for this medication: [id number] [address] [facility] Outcome: [x]Medication pended, routed to surescripts []Medication refused []Informed caller of refills at pharmacy []Additional message to medication management RN []Verbal authorization for written order to pharmacy []Additional message to provider []Verified medication with pharmacy Erika Medication Management OR TECHNICAL PROGRAM MANAGER documented in this encounter Plan of Treatment Upcoming Encounters Date Type Department Care Team (Late st Contact Info) Description 03/10/2025 2:30 PM CDT Office Visit [facility] - Endocrinology - [place] [address] [place] [address] Fadi Bullard MD [address] [address] documented as of this encounter Visit Diagnoses Diagnosis Anxiety and depression Dysthymic disorder documented in this encounter Additional Health Concerns Infection Onset Date Last Indicated Resolved Time COVID - 19 06/18/2021 06/18/2021 07/08/2021 12:1 6 AM SENIOR TECHNICAL PROGRAM MANAGER COVID - 19 Confirmed 06/18/2021 06/18/2021 022 12:16 AM SENIOR TECHNICAL PROGRAM MANAGER Assessment Noted Time PHQ-9 Depression Total Score: 0 07/04/19 20 8:10 AM SENIOR TECHNICAL PROGRAM MANAGER documented as of this encounter Care Teams Chemical Dependency Professional Relationship Specialty Start Date End Date Fritz Crook MD #2 [place] [facility] [address] [place] [address] PCP - General Family Medicine 05/08/15 04/05/22 Fritz Crook MD [facility] [address] [place] [address] PCP - General Primary Care 12/10/22 08/08/24 Marzena Gomes APRN, LIMB DRIVER [address] [place] [address] PCP - General Advanced Practice Nurse 12/07/24 Fadi Bullard MD #2 [facility] [address] [place] [address] Consulting Physician Internal Medicine 01/08/16 Harini Curran APRN, LIMB DRIVER 2 [facility] [address] [place] [address] Certified Nurse Practitioner 06/24/16 documented as of this encounter
--- OUTSIDE RECORDS SUMMARY | 2024-12-27 18:27 | XMS_ITS | Clinical Summary ---
Author Organization [facility] Address [address] [place] [address] Care Team Providers Care Screen Printing Paster Name Role Phone Marzena Gomes BENCH CHEMIST Primary Care Provider Allergies Active Allergy Reactions [...] 5/16 needle Active blood-glucose meter,continuous (Dexcom G6 Quick Technician) misc USE DIRECTED BY OFFICE Active NAPROXEN, [...] 05/25/2020 Assessment & Plan (05/25/2020 11:26 AM ANIMAL ECOLOGIST): Patient's carotid disease was mild and probably only needs every 2-3 year follow-up with ultrasound. 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 Assessment & Plan (06/03/2019 4:02 AM ANIMAL ECOLOGIST): Concerning for cardiac etiology. Patient has risk factors including uncontrolled diabetes, hypertension, hyperlipidemia, obesity and tobacco use. Patient's grandparents also had MIs. Troponins negative x4. Will order a stress test. Cardiology was consulted. P.r.n. Nitroglycerin which seems to help patient's pain. Uncontrolled type 2 diabetes mellitus with hyper glycemia 06/03/2019 Assessment & Plan (06/03/2019 4:05 AM ANIMAL ECOLOGIST): Secondary to noncompliance. Patient is supposed to [...] 06/03/2019 Assessment & Plan (06/03/2019 4:04 AM ANIMAL ECOLOGIST): Pressures are under control. Will continue metoprolol with hold parameters. Will hold lisinopril and hydrochlorothiazide for now as I suspect patient may be dehydrated due to hyperglycemia and will be receiving IV fluids. Will continue to monitor. Mixed hyperlipidemia 06/03/2019 Assessment & Plan (06/03/2019 4:00 AM ANIMAL ECOLOGIST): Continue Lipitor Class 2 obesity in adult 06/03/2019 Lactic acidosis 06/03/2019 Assessment & Plan (06/03/2019 4:14 AM ANIMAL ECOLOGIST): Suspect this is from dehydration from hyperglycemia. Currently resolved. Class 3 severe obesity due t o excess calories with serious comorbidity and body mass index (BMI) of 40.0 to 44.9 in adult 02/07/2019 Right upper quadrant abdominal pain 07/14/2018 Neck pain 04/07/2018 Diabetic ketoacidosis with c francisco associated with type 1 diabetes mellitus 07/12/2017 Assessment & Plan (07/12/2017 8:31 PM ANIMAL ECOLOGIST): The patient is type 1 diabetic follows [...] 07/12/2017 Assessment & Plan (07/12/2017 8:32 PM ANIMAL ECOLOGIST): In the setting of diabetes probably Marlena vaginitis. Post started already on fluconazole. She continues having significant itching also will treat with a topical miconazole vaginally. Metabolic acidosis 07/12/2017 Assessment & Plan (07/12/2017 8:35 PM ANIMAL ECOLOGIST): Likely multifactorial possible UTI in the setting [...] 07/12/2017 Assessment & Plan (07/12/2017 8:56 PM ANIMAL ECOLOGIST): The so far not identified source of [...] 07/12/2017 Assessment & Plan (07/12/2017 8:55 PM ANIMAL ECOLOGIST): New onset diarrhea , no previous history of chronic diarrhea . Patient denies any recent antibiotic use. No recent hospitalizations. Possibly infectious will check stool studies, will get flu swab Hyperkalemia 07/12/2017 Assessment & Plan (07/12/2017 8:55 PM ANIMAL ECOLOGIST): In the setting or diabetic ketoacidosis. Likely due to elevated blood sugars. Correct underlying cause monitor with BMP every 2 hr and replace as needed per hypokalemia protocol Dehydration 07/12/2017 Assessment & Plan (07/12/2017 8:54 PM ANIMAL ECOLOGIST): Multifactorial due to uncontrolled type 1 diabetes with DKA possible UTI and diarrhea. 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 07/19/2019 Bilateral carotid artery stenosis 05/25/2020 Osteoporosis Family History Medical History Relation Name Comments COPD Maternal Grandfather COPD Maternal Grandmother Diabetes Maternal Grandmother Heart attack Maternal Grandmother Stroke Maternal Grandmother Sudden Cardiac Maternal Grandmother Diabetes Mother's Brother Stroke Mother's Brother COPD Mother's Sister Diabetes Mother's Sister Kidney failure Mother's Sister Arthritis Other Heart disease Other Hypertension Other Mental illness Other Cancer Paternal Grandfather Heart attack Paternal Grandmother Sudden Cardiac Paternal Grandmother Diabetes Sister Relation Name Status Comments Maternal Grandfather Maternal Grandmother Mother's Brother Mother's Sister Other Paternal Grandfather Paternal Grandmother Sister Social History Tobacco Use Types Packs/Day Years [...] on file Legal Sex Female 4:49 PM ANIMAL ECOLOGIST Gender Identity Not on file Sexual Orientation Not on file Obstetrics History Last Filed Vital Signs Vital Sign Reading Time Taken Comments Blood Pressure 132/62 07/19/2024 4:08 PM ANIMAL ECOLOGIST Pulse 63 06/29/2024 2:45 PM ANIMAL ECOLOGIST Temperature 36.6 C (97.9 F) 04/25/2024 4:51 PM ANIMAL ECOLOGIST Respiratory Rate 18 04/25/2024 9:45 PM ANIMAL ECOLOGIST Oxygen Saturation 97% 04/25/2024 9:45 PM ANIMAL ECOLOGIST Inhaled Oxygen Concentration - - Weight 108.7 kg (239 lb 11.2 oz) 07/19/2024 4:08 PM ANIMAL ECOLOGIST Height 165.1 cm (5' 5) 07/19/2024 4:08 PM ANIMAL ECOLOGIST Body Mass Index 39.89 07/19/2024 4:08 PM ANIMAL ECOLOGIST Plan of Treatment Health Maintenance Due Date Last Done Comments Breast Cancer Screening-Mammogram 1977 Cervical Cancer Screening 1977 Colon Cancer Screening-Colonoscopy 1977 Depression Screening 1977 Hepatitis C Screening 1977 DTaP/Tdap/Td Vaccine (1 - Tdap) 1988 Hepatitis B Screening 10/06/1995 Regular Well Visit/Exam 18-64 10/06/1995 Pneumococcal vaccine <65 (2 of 2 - PCV) 02/21/2016 02/20/2015 Albumin Creatinine Ratio, Urine 12/29/2024 Lipid Panel 12/29/2024 12/30/2023, 06/03/2019 Hemoglobin A1C 01/16/2025 07/19/2024, 03/23, 07/12/2017 Influenza Vaccine (Season Ended) 2025 05/01/2023, 07/25/2020, 06/03/2019, Additional history exists Dilated Eye Exam 04/18/2025 04/18/2024 Foot Exam 04/18/2025 04/18/2024 eGFR 04/25/2025 04/25/2024, 110 08/2023, 05/05/2023, Additional history exists TSH Level Discontinued 03/12/2023, 05/22, 07/12/2017 Medical Devices Implanted Type Area Gravity Meter Operator Device Identifier Shelf Expiration Date Model / Serial / Lot [employer] [id number] Angio-Seal Evolution 6fr .035in Guidewire Bypass Tube Suture - [id number] Implanted:Qty: 1 on 06/03/2019 by Neeraj Alvarado MD at [facility] Other - see comments [employer] 01/20/2020 [id number] / / [id number] Procedures Procedure Name Priority Date/Time Associated Diagnosis Comments POCT HEMOGLOBIN A1C Routine 07/19/2024 4 :15 PM ANIMAL ECOLOGIST Type 2 diabetes mellitus with hyperglycemia, with long-term current use of insulin (HCC) EGFR STAT 04/25/2024 5:09 PM ANIMAL ECOLOGIST RETINAVUE SCANNER - OU - BOTH EYES Routine 04/18/2024 Type 2 diabetes mellitus with hyperglycemia, with long-term current use of insulin (HCC) LIPID PANEL Routine 06/03/2019 1:25 AM ANIMAL ECOLOGIST TSH STAT 06/02/2019 4:14 PM ANIMAL ECOLOGIST from Last 3 Months or Most Recently Relevant to Health Maintenance Results * (ABNORMAL) POCT hemoglobin A1c (07/19/2024 4:15 PM ANIMAL ECOLOGIST) Hemoglobin A1C, POC 10.2 4.0 - 5.6 % Blood 07/19/2024 4:15 PM ANIMAL ECOLOGIST us Екатерина Doran DO POINT OF CARE TEST ORDERABL ES Final Result * eGFR (04/25/2024 5:09 PM ANIMAL ECOLOGIST) eGFR >90 >=60 mL/min/1. 73 m2 Comment: [...] last reviewed 2021. Blood 04/25/2024 5:09 PM ANIMAL ECOLOGIST 04/25/2024 5:13 PM ANIMAL ECOLOGIST us Maritza Murphy MD LAB BLOOD ORDERABLE S Final Result [facility] [place] [facility] Department [place] [address] * RetinaVue Scanner - OU - Both Eyes (04/18/2024) Anatomical Region Laterality Modality Head Fundus Photograp hy 04/18/2024 Екатерина Doran DO OPHTH PHOTOGRAPHY Final Res ult * (ABNORMAL) Lipid panel (06/03/2019 1:25 AM ANIMAL ECOLOGIST) Cholesterol 137 30 - 199 mg/dL LONG [...] on 2018. HDL 33(L) >=40 mg/dL [facility] ([place]) Comment: Interpretive Data Ages < [...] ([place]) Blood specimen (specimen) 06/03/2019 1:25 AM ANIMAL ECOLOGIST 06/03/2019 1:27 AM ANIMAL ECOLOGIST us Maritza Murphy MD LAB BLOOD ORDERABLE S Final Result [facility] ([place]) 1 [facility] Department [place] [address] * TSH (06/02/2019 4:14 PM ANIMAL ECOLOGIST) Thyroid Stimulating Hormone 3.32 0.30 - 4.20 mcIUnit/mL [facility] ([place]) Blood specimen (specimen) 06/02/2019 4:14 PM ANIMAL ECOLOGIST 06/02/2019 4:27 PM ANIMAL ECOLOGIST us Maritza Murphy MD LAB BLOOD ORDERABLE S Final Result [facility] ([place]) [facility] Department [place] [address] from Last 3 Months or Most Recently Relevant to Health Maintenance Insurance [facility] Advance Directives For more information, please contact: [phone] * Full Code (Latest Code Status on File) Date Activated Date Inactivated Comments 06/02/2019 8:32 PM 06/03/2019 10:19 PM * Full Code Date Activated Date Inactivated Comments 07/12/2017 7:52 PM 07/16/2017 3:59 PM * Full Code Date Activated Date Inactivated Comments 07/12/2017 11:40 AM 07/12/2017 7:52 PM Care Teams Screen Printing Paster Relationship Specialty Start Date End Date Marzena Gomes NP [address] [place] [id number] PCP - General Nurse Practitioner 04/25/24
--- OUTSIDE RECORDS SUMMARY | 2024-12-27 18:27 | XMS_ITS | Encounter Summary ---
Author Organization [facility] Address [address] [place] [address] Phone Care Team Providers Care Herd Tester Name Role Phone Fadi Bullard MD Unavailable Harini Heath APRN, HIGH SCHOOL SCIENCE TUTOR Unavailable [phone] Fritz Crook MD Primary Care Provider [phone] Marzena Gomes HAND RUG CLEANER, [facility] Primary Care Provider Reason for Visit * Reason Comments Medication Refill Encounter Details Date Type Department Care Team (Late st Contact Info) Description 12/22/2023 Refill [facility] - Endocrinology - [place] [address] [place] [address] Fadi Bullard MD [address] [address] Medication Refill Social History Tobacco [...] Telephone Encounter - Sherry Montesinos, RN - 12/23/2023 8:45 AM CDT Patient needs to be seen in office. Missed last several appointments. documented in this encounter Plan of Treatment Upcoming Encounters Date Type Department Care Team (Late st Contact Info) Description 03/10/2025 2:30 PM CDT Office Visit [facility] - [place] [address] [place] [address] Fadi Bullard MD [address] [phone] documented as of this encounter Visit Diagnoses Not on filedocumented in this encounter Additional Health Concerns Assessment Noted Time PHQ-9 Depression Total Score: 5 07/25/19 21 4:00 PM UNDER TRIMMER documented as of this encounter Care Teams Herd Tester Relationship Specialty Start Date End Date Fritz Crook MD [address] [address] PCP - General Primary Care 12/10/22 08/08/24 Marzena Gomes APRN, HIGH SCHOOL SCIENCE TUTOR [address] [address] PCP - General Advanced Practice Nurse 12/07/24 Fadi Bullard MD [address] [phone] Consulting Physician Internal Medicine 01/08/16 Harini Curran APRN, HIGH SCHOOL SCIENCE TUTOR 2 [facility] [address] [place] [address] Certified Nurse Practitioner 06/24/16 documented as of this encounter
--- OUTSIDE RECORDS SUMMARY | 2024-12-27 18:27 | XMS_ITS | Encounter Summary ---
Author Organization [facility] Address [address] [place] [address] Phone Care Team Providers Care Wiring Inspector Name Role Phone Fritz Crook MD Primary Care Provider [phone] Fadi Bullard MD Unavailable Harini Heath APRN, [facility] Unavailable [phone] Fritz Crook MD Primary Care Provider [phone] Marzena Gomes ONLINE EDUCATION MANAGER, [facility] Primary Care Provider Reason for Visit * Reason Onset Date Comments Medication Refill 03/09/2020 Encounter Details Date Type Department Care Team (Late st Contact Info) Description 03/09/2020 Refill [facility] Medical Group - Family [facility] [address] [place] [id number] Fritz Crook MD [address] [address] Medication Refill Social History Tobacco Use Types [...] on file Sexual Orientation Not on file COVID-19 Exposure Response Date Recorded In the last month, have you been in contact with someone who was confirmed or suspected to have Coronavirus / COVID-19? No / Unsure 02/17/2020 9:27 AM CDT documented as of this encounter Miscellaneous Notes * Telephone Encounter - Fritz Crook MD - 03/10/2020 8:18 AM CDT Prescription pending signature * Telephone Encounter - Sasha Barker RN - 03/09/2020 3:19 PM CDT SONDRA: 02-17-2020 Next OV: 06-18-2020 for lab 06-20-2020 for OV * Telephone Encounter - Katelynn Nichloson - 03/09/2020 2:20 PM CDT Name of Medication: HYDROcodone-acetaminophen (NORCO) 10-325 MG Tablet Pharmacy/location for refill to be sent to (if is not a written script)? [id number] [place], [place] - [address] [place], [place] [address] AT [facility] [address] 30 or 90 day supply? 30 documented in this encounter Plan of Treatment Upcoming Encounters Date Type Department Care Team (Late st Contact Info) Description 03/10/2025 2:30 PM CDT Office Visit [facility] [address] [place] [phone] Fadi Bullard MD [address] [address] documented as of this encounter Visit Diagnoses Not on filedocumented in this encounter Additional Health Concerns Infection Onset Date Last Indicated Resolved Time COVID - 19 06/18/2021 06/18/202107/0807/08/2021 12:1 6 AM SUPERVISOR TYPESETTING COVID - 19 Confirmed 06/18/2021 06/18/2021 022 12:16 AM SUPERVISOR TYPESETTING Assessment Noted Time PHQ-9 Depression Total Score: 0 07/04/19 20 8:10 AM SUPERVISOR TYPESETTING documented as of this encounter Care Teams Wiring Inspector Relationship Specialty Start Date End Date Fritz Crook MD [address] [facility] [address] [place] [address] PCP - General Family Medicine 05/08/15 04/05/22 Fritz Crook MD [address] [address] PCP - General Primary Care 12/10/22 08/08/24 Marzena Gomes APRN, APPLICATIONS ENGINEER MANUFACTURING [address] [place] [address] PCP - General Advanced Practice Nurse 12/07/24 Fadi Bullard MD [address]2 [facility] [address] [place] [address] Consulting Physician Internal Medicine 01/08/16 Harini Curran ONLINE EDUCATION MANAGER, APPLICATIONS ENGINEER MANUFACTURING 2 [facility] [address] [place] [address] Certified Nurse Practitioner 06/24/16 documented as of this encounter
--- OUTSIDE RECORDS SUMMARY | 2024-12-27 18:27 | XMS_ITS | Encounter Summary ---
Author Organization [facility] Address [address] [place] [address] Phone Care Team Providers Care Rn Orthopaedic Name Role Phone Fritz Crook MD Primary Care Provider [phone] Fadi Bullard MD Unavailable Harini Heath APRN, [facility] Unavailable [phone] Fritz Crook MD Primary Care Provider [phone] Marzena Gomes RETAIL ACCOUNT REPRESENTATIVE, [facility] Primary Care Provider Reason for Visit * Reason Comments Medication Refill Encounter Details Date Type Department Care Team (Late st Contact Info) Description 04/30/2020 Refill [facility] Medical [facility] - Family Medicine [facility] [address] [place] [phone] Fritz Crook MD [address] [address] Medication Refill Social History Tobacco Use Types [...] Telephone Encounter - Fritz Crook MD - 05/01/2020 12:05 PM CST Prescription pending signature ER * Telephone Encounter - Suzan Ballard RN - 05/01/2020 11:41 AM CST Last OV 02/17/20 - fol up 06/20/20 Last Rx 03/20/20 UDS 02/17/20 compliant Suzan DANIELmanager roofing failed the protocol, provider to review and approve the medication order if appropriate. Requested Prescriptions Pending Prescriptions Disp Refills ALPRAZolam (XANAX) 1 MG Tablet [Pharmacy Med Name: ALPRAZOLAM 1MG TABLETS] 80 Tab 0 Sig: TAKE 1 TABLET BY MOUTH THREE TIMES DAILY NEEDED FOR ANXIETY Not Delegated - Psychiatry: Anxiolytics/Hypnotics Failed - 04/30/2020 9:28 AM Failed - This refill cannot be delegated Passed - Valid encounter within last 6 months Past Office Visits Recent Outpatient Visits 2 months ago Essential hypertension [facility] - Fritz Durbin MD 6 months ago Essential hypertension [facility] Fritz Durbin MD 10 months ago Type 2 diabetes mellitus without complication, with long-term current use of insulin (HCC) [facility] Fritz Pickett MD 1 year ago Anxiety [facility] Fritz Durbin MD 1 year ago Essential hypertension [facility] Fritz Durbin MD Upcoming Appointments Future [facility]ointments In 1 month [facility] In 1 month Fritz Crook MD [facility] TING Bolanos PORCELAIN TECHNICIAN - Recent and Past Visits Recent Visits Date Type Provider Dept 02/17/20 Office Visit Fritz Crook MD [facility] 10/05/19 Telemedicine Fritz Crook MD [facility] 07/04/19 Office Visit Fritz Crook MD [facility] Showing recent visits within past 460 days with a meds authorizing provider and meeting all other requirements Future Appointments Date Type Provider Dept 06/20/20 Appointment Fritz Crook MD [facility] Showing future appointments within next 90 days with a meds authorizing provider and meeting all other requirements ER documented in this encounter Plan of Treatment Upcoming Encounters Date Type Department Care Team (Late st Contact Info) Description 03/10/2025 2:30 PM CDT [facility] [address] [place] [address] Fadi Bullard MD #[address] [address] documented as of this encounter Visit Diagnoses Diagnosis Anxiety and depression Dysthymic disorder documented in this encounter Additional Health Concerns Infection Onset Date Last Indicated Resolved Time COVID - 19 06/18/2021 06/18/2021 07/08/2021 12:1 6 AM BRACER COVID - 19 Confirmed 06/18/2021 06/18/2021 022 12:16 AM BRACER Assessment Noted Time PHQ-9 Depression Total Score: 0 07/04/19 20 8:10 AM BRACER documented as of this encounter Care Teams Rn Orthopaedic Relationship Specialty Start Date End Date Fritz Crook MD [address] [address] PCP - General Family Medicine 05/08/15 04/05/22 Fritz Crook MD [address] [address] PCP - General Primary Care 12/10/22 08/08/24 Marzena Gomes, RETAIL ACCOUNT REPRESENTATIVE, CELL ASSEMBLY PINNER [address] [place] [address] PCP - General Advanced Practice Nurse 12/07/24 Fadi Bullard MD [address]2 [facility] [address] [place] [address] Consulting Physician Internal Medicine 01/08/16 5 Harini Heath APRN, CELL ASSEMBLY PINNER 2 [facility] [address] [place] [address] Certified Nurse Practitioner 06/24/16 documented as of this encounter
--- OUTSIDE RECORDS SUMMARY | 2024-12-27 18:27 | XMS_ITS | Encounter Summary ---
Author Organization [facility] Address [address] [place] [address] Phone Care Team Providers Care Civil Engineering Assistant Name Role Phone Fadi Bullard MD Unavailable Harini Heath APRN, PHARMACY DIRECTOR Unavailable [phone] Fritz Crook MD Primary Care Provider [phone] Marzena Gomes SATELLITE TELEVISION INSTALLER, [facility] Primary Care Provider Reason for Visit * Reason Comments Medication Refill Encounter Details Date Type Department Care Team (Late st Contact Info) Description 12/16/2022 Refill [facility] Medical Group - Family Medicine [facility] [address] [place] [phone] Fritz Crook MD #[address] [address] Medication Refill Social History Tobacco Use Types [...] Office Visit [facility]in[facility] [address] [place] [address] Fadi Bullard MD #[address] [address] documented as of this encounter Visit Diagnoses Not on filedocumented in this encounter Additional Health Concerns Assessment Noted Time PHQ-9 Depression Total Score: 5 07/25/19 21 4:00 PM CLINIC CHARGE NURSE documented as of this encounter Care Teams Civil Engineering Assistant Relationship Specialty Start Date End Date Fritz Crook MD #[address] [address] PCP - General Primary Care 12/10/22 08/08/24 Marzena Gomes APRN, PHARMACY DIRECTOR #2 [place] [address] PCP - General Advanced Practice Nurse 12/07/24 Fadi Bullard MD #[address] [address] Consulting Physician Internal Medicine 01/08/16 Harini Curran APRN, PHARMACY DIRECTOR 2 [facility] [address] [place] [address] Certified Nurse Practitioner 06/24/16 documented as of this encounter
--- OUTSIDE RECORDS SUMMARY | 2024-12-27 18:27 | XMS_ITS | Encounter Summary ---
Author Organization [facility] Address [address] [place] [address] Phone Care Team Providers Care Body And Fender Worker Name Role Phone Fadi Bullard MD Unavailable Harini Heath APRN, BUSINESS CONTROLLER Unavailable [phone] Fritz Crook MD Primary Care Provider [phone] Marzena Gomes AUCTION ASSISTANT, [facility] Primary Care Provider Reason for Visit * Reason Comments Medication Refill Encounter Details Date Type Department Care Team (Late st Contact Info) Description 07/02/2022 Refill [facility] Medical Group - Family Medicine [facility] [address] [place] [phone] Fritz Crook MD #[address] [address] Medication Refill Social History Tobacco Use Types [...] Office Visit [facility] [address] [place] [address] Fadi Bullard MD #[address] [address] documented as of this encounter Visit Diagnoses Not on filedocumented in this encounter Additional Health Concerns Assessment Noted Time PHQ-9 Depression Total Score: 5 07/25/19 21 4:00 PM JURY CONSULTANT documented as of this encounter Care Teams Body And Fender Worker Relationship Specialty Start Date End Date Fritz Crook MD #[address] [address] PCP - General Primary Care 12/10/22 08/08/24 Marzena Gomes APRN, BUSINESS CONTROLLER #2 [facility] [place] [address] PCP - General Advanced Practice Nurse 12/07/24 Fadi Bullard MD #[address] [address] Consulting Physician Internal Medicine 01/08/16 Harini Curran APRN, BUSINESS CONTROLLER 2 [facility] [address] [place] [address] Certified Nurse Practitioner 06/24/16 documented as of this encounter
--- OUTSIDE RECORDS SUMMARY | 2024-12-27 18:27 | XMS_ITS | Encounter Summary ---
Author Organization [facility] Address [address] [place] [address] Phone Care Team Providers Care Casing Crew Pusher Name Role Phone Fadi Bullard MD Unavailable Harini Heath APRN, STUDIO OPERATOR Unavailable [phone] Fritz Crook MD Primary Care Provider [phone] Marzena Gomes EDISCOVERY PROJECT MANAGER, [facility] Primary Care Provider Reason for Visit * Reason Comments Medication Refill Encounter Details Date Type Department Care Team (Late st Contact Info) Description 09/14/2023 Refill [facility] - Endocrinology - [place] [address] [place] [address] Fadi Bullard MD #[address] [address] Medication Refill Social History Tobacco [...] Telephone Encounter - Sherry Montesinos, RN - 09/15/2023 10:08 AM CDT Medication(s) refused due to duplicate request. Chart reviewed to insure medication was already refilled at pharmacy that is currently requesting refill. documented in this encounter Plan of Treatment Upcoming Encounters Date Type Department Care Team (Late st Contact Info) Description 03/10/2025 2:30 PM CDT Office Visit [facility] - Endocrinology - [place] [address] [place] [address] Fadi Bullard MD #[address] [address] documented as of this encounter Visit Diagnoses Not on filedocumented in this encounter Additional Health Concerns Assessment Noted Time PHQ-9 Depression Total Score: 5 07/25/19 21 4:00 PM RESIDENT CARE SPEC documented as of this encounter Care Teams Casing Crew Pusher Relationship Specialty Start Date End Date Fritz Crook MD #[address] [address] PCP - General Primary Care 12/10/22 08/08/24 Marzena Gomes, EDISCOVERY PROJECT MANAGER, STUDIO OPERATOR #[address] [place] [address] PCP - General Advanced Practice Nurse 12/07/24 Fadi Bullard MD #[address] [address] Consulting Physician Internal Medicine 01/08/16 5 Harini Heath, EDISCOVERY PROJECT MANAGER, STUDIO OPERATOR 2 [facility] [address] [place] [address] Certified Nurse Practitioner 06/24/16 documented as of this encounter
--- OUTSIDE RECORDS SUMMARY | 2024-12-27 18:27 | XMS_ITS | Encounter Summary ---
Author Organization [facility] Address [address] [place] [address] Phone Care Team Providers Care Loader Operator Supervisor Name Role Phone Fritz Crook MD Primary Care Provider [phone] Fadi Bullard MD Unavailable Harini eHath APRN, [facility] Unavailable [phone] Fritz Crook MD Primary Care Provider [phone] Marzena Gomes ADMISSIONS GATE ATTENDANT, [facility] Primary Care Provider Reason for Visit * Reason Comments Medication Refill Encounter Details Date Type Department Care Team (Late st Contact Info) Description 03/19/2020 Refill [facility] Medical Group - Family Medicine [facility] [address]2 [place] [address] Fritz Crook MD #[address] [address] Medication Refill Social History Tobacco Use Types [...] Telephone Encounter - Fritz Crook MD - 03/20/2020 4:05 PM CDT Prescription pending signature * Telephone Encounter - Yareli Cespedes RN - 03/20/2020 2:44 PM CDT 4 weeks ago (02/17/2020) ALPRAZolam (XANAX) 1 MG Tablet Take 1 Tab by mouth 3 times daily as needed for Anxiety. Dispense: 80 Tab? Refills: 0? Start: 02/17/2020? By: Fritz Crook MD ? Encounter documented in this encounter Plan of Treatment Upcoming Encounters Date Type Department Care Team (Late st Contact Info) Description 03/10/2025 2:30 PM CDT Office Visit [facility] - Endocrinology [facility] [address]2 [place] [address] Fadi Bullard MD #2 [facility] [address] [place] [address] documented as of this encounter Visit Diagnoses Diagnosis Anxiety and depression Dysthymic disorder documented in this encounter Additional Health Concerns Infection Onset Date Last Indicated Resolved Time COVID - 19 06/18/2021 06/18/2021 07/08/2021 12:1 6 AM JUVENILE JUSTICE SPECIALIST COVID - 19 Confirmed 06/18/2021 06/18/2021 022 12:16 AM JUVENILE JUSTICE SPECIALIST Assessment Noted Time PHQ-9 Depression Total Score: 0 07/04/19 20 8:10 AM JUVENILE JUSTICE SPECIALIST documented as of this encounter Care Teams Loader Operator Supervisor Relationship Specialty Start Date End Date Fritz Crook MD #2 [facility] [address] [place] [address] PCP - General Family Medicine 05/08/15 04/05/22 Fritz Crook MD #2 [facility] [address] [place] [address] PCP - General Primary Care 12/10/22 08/08/24 Marzena Gomes APRN, STERILIZATION TECH [address] [place] [address] PCP - General Advanced Practice Nurse 12/07/24 F[facility] Bullard MD [facility] [address] [address] Consulting Physician Internal Medicine 01/08/16 Harini Curran APRN, STERILIZATION TECH 2 [facility] [address] [place] [address] Certified Nurse Practitioner 06/24/16 documented as of this encounter
--- OUTSIDE RECORDS SUMMARY | 2024-12-27 18:28 | XMS_ITS | Clinical Summary ---
Author Organization [facility] Address [address] [facility] [address] [facility], [place] [address] Phone Care Team Providers Care Mold Forms Builder Name Role Phone Pass, Hariniparam Rojo APRN, FLYING II INSTRUCTOR Unavailable [phone] Marzena Gomes SPECIAL SKILLS OFFICER, FLYING II INSTRUCTOR Primary Care Provider Allergies No known active allergies Medications Insulin Pen Needle (Pen [place]) 32G X 4 MM MiscIndications :Type 2 diabetes mellitus with microalbuminuri a, with long-term current use of insulin (HCC) 4 times a day 400 Each 3 08/17/19 21 Active pravastatin (PRAVACHOL) 40 MG Tablet Take 1 Tablet by mouth daily. 90 Tablet 3 11/21/19 21 Active cyclobenzaprine (FLEXERIL) 10 MG Tablet Take 1 Tablet by mouth 3 times daily as needed for Muscle spasms. 90 Tablet 1 01/11/20 21 Active Additional Information Patient not taking.Reported on 12/07/2024 Multiple Vitamin (DAILY VITAMIN PO) Take by mouth. Act marcio FIBER PO Take by mouth daily. Active lisinopril-hydr oCHLOROthiazide (PRINZIDE, ZESTORETIC) 20-25 MG Tablet TAKE 1 TABLET BY MOUTH DAILY 90 Tablet 1 10/03/19 Active acyclovir (ZOVIRAX) 400 MG Tablet Take 1 Tablet by mouth 2 times daily. 60 Tablet 6 02/06/20 Active Additional Information Patient not taking.Reported on 12/07/2024 aspirin 81 MG Chewable Tablet Take 1 Tablet by mouth daily. 90 Tablet 1 02/06/20 Active metoprolol Succinate (TOPROL-XL) 50 MG TABLET SR 24 HR Take 1 Tablet by mouth daily. 90 Tablet 1 02/06/20 Active amLODIPine (NORVASC) 5 MG Tablet TAKE 1 TABLET BY MOUTH DAILY 90 Tablet 04/02/20 Active Additional Information Patient not taking.Reported on 12/07/2024 ciprofloxacin (CIPRO) 500 MG Tablet Take 500 mg by mouth 2 times daily. 07/30/19 23 Active valACYclovir (VALTREX) 500 MG Tablet Take 500 mg by mouth daily. 08/21/19 23 Active Continuous Blood Gluc Transmit (Dexcom G6 Transmitter) Misc Every 3 months. 1 Each 3 06/24/19 Active Additional Information Patient not taking.Reported on 12/07/2024 levothyroxine (SYNTHROID) 100 MCG Tablet Take 100 mcg by mouth every morning. 05/01/20 Active glipiZIDE (GLUCOTROL) 10 MG TabletIndicatio ns:Type 2 diabetes mellitus with other circulatory complication, with long-term current use of insulin Take 10 mg by mouth daily. Active simvastatin (ZOCOR) 20 MG TabletIndicatio ns:Type 2 diabetes mellitus with other circulatory complication, with long-term current use of insulin Take 20 mg by mouth every evening. Active Continuous Glucose Sensor (FreeStyle Darya 3 Plus Sensor) MiscIndications :Type 2 diabetes mellitus with other circulatory complication, with long-term current use of insulin Every 14 days 6 Each 3 12/08/19 25 Active Continuous Glucose Financial Reporting Consultant (FreeStyle Darya 3 [place]) DeviceIndicatio ns:Type 2 diabetes mellitus with other circulatory complication, with long-term current use of insulin Check blood glucose before each meal and at bedtime 1 Each 12/08/19 25 Active Glucose Blood (OneTouch Ultra) StripIndication s:Type 2 diabetes mellitus with other circulatory complication, with long-term current use of insulin 4 times a day 400 Each 3 12/08/19 25 Active Blood Glucose Monitoring Suppl (ONE TOUCH ULTRA 2) w/Device KitIndications: Type 2 diabetes mellitus with other circulatory complication, with long-term current use of insulin Check blood glucose before each meal and at bedtime 1 Each 12/08/19 25 Active Lancets MiscIndications :Type 2 diabetes mellitus with other circulatory complication, with long-term current use of insulin Test 4x daily. 400 Lancet . 3 12/08/19 25 Active Insulin Degludec 100 UNIT/ML SolutionIndicat ions:Type 2 diabetes mellitus with other circulatory complication, with long-term current use of insulin 40 Units by Subcutaneous route every morning. 45 mL 1 12/08/19 25 Active Insulin Aspart FlexPen 100 UNIT/ML Solution Pen-injectorInd ications:Type 2 diabetes mellitus with other circulatory complication, with long-term current use of insulin 14 units before each meal; correctional factor insulin of 1:20 if >140 mg/dL, up to 90 units per day 90 mL 1 12/08/19 25 Active Lancets Misc Test 4x daily. 400 Lancet 3 03/04/20 18 025 Discontin ued(Dupli mar Order) OneTouch Delica Lancets 33G Misc 1 Lancet by Does not apply route 4 times daily. Test blood glucose 4 x daily. 400 Lancet 3 08/17/19 21 025 Discontin ued(Dupli mar Order) Glucose Blood (OneTouch Verio) Strip Test blood sugar 4x daily. 400 Strip 3 11/07/19 21 025 Discontin ued(Dupli mar Order) Insulin Lispro (HUMALOG KWIKPEN SC) by Subcutaneous route. 025 Discontin ued(Med List Clean Up) Lantus SoloStar 100 UNIT/ML Solution Pen-injector ADMINISTER 24 UNITS UNDER THE SKIN EVERY NIGHT 30 mL 1 10/26/19 22 025 Discontin ued(Reord er) Blood Glucose Monitoring Suppl (OneTouch Verio) w/Device Kit 1 Kit by Does not apply route daily. Test blood glucose 4x daily. 1 Kit 02/28/20 22 025 Discontin ued(Dupli mar Order) Continuous Blood Gluc Financial Reporting Consultant (Dexcom G6 Financial Reporting Consultant) Device Use as directed by office 1 Each 10/22/19 23 025 Discontin ued(Dupli mar Order) Continuous Blood Gluc Sensor (Dexcom G7 Sensor) MiscIndications :Type 2 diabetes mellitus with microalbuminuri a, with long-term current use of insulin (HCC) 1 Each by Does not apply route every 10 days. Change sensor every 10 days. 3 Each 3 04/30/20 23 025 Discontin ued(Dupli mar Order) Continuous Blood Gluc Financial Reporting Consultant (Dexcom G7 Financial Reporting Consultant) DeviceIndicatio ns:Type 2 diabetes mellitus with microalbuminuri a, with long-term current use of insulin (HCC) 1 Each by Does not apply route 4 times daily. Use to check glucose 4x daily. 1 Each 04/30/20 23 025 Discontin ued(Dupli mar Order) Semaglutide, 1 MG/DOSE, (Ozempic, 1 MG/DOSE,) 4 MG/3ML Solution Pen-injector 1 mg by Subcutaneous route once a week. 9 mL 1 05/01/20 23 025 Discontin ued(Med List Clean Up) Insulin Lispro, 1 Unit Dial, 100 UNIT/ML Solution Pen-injector INJECT 15 UNITS UNDER THE SKIN BEFORE EACH IF ISF OF 1:25 HIGHER THAN 140. MAX 90 UNITS PER DAY 45 mL 1 09/14/19 24 025 Discontin ued(Med List Clean Up) Continuous Glucose Sensor (Dexcom G6 Sensor) Misc EVERY 10 DAYS 9 Each 1 01/07/20 24 025 Discontin ued(Dupli mar Order) Active Problems Problem Noted Date Diagnosed Date Diabetes mellitus 12/07/2024 Hypoglycemia 07/08/2019 Class 3 severe obesity due t o excess calories with serious comorbidity and body mass index (BMI) of 40.0 to 44.9 in adult 02/07/2019 Right upper quadrant abdominal pain 07/14/2018 Neck pain 04/07/2018 Pharyngeal disorder 04/07/2016 Left-sided low back pain without sciatica 2015 Arthralgia of both elbows 05/24/2015 Essential hypertension 05/08/2015 Type 2 diabetes mellitus wit h microalbuminuria, with long-term current use of insulin 05/08/2015 HLD (hyperlipidemia) 05/08/2015 Anxiety 05/04/2015 Encounters Date Type Department Care Team Description 12/12/2024 Telephone [facility] - Endocrinology [facility] [address] [place] [address] Fadi Bullard MD Care Management 12/07/2024 2:45 PM CDT [facility] - [place] [address] [place] [address] Fadi Bullard MD Type 2 diabetes mellitus with other circulatory complication, with long-term current use of insulin (Primary Dx); Insulin dose changed (HCC); Class 2 severe obesity due to excess calories with serious comorbidity and body mass index (BMI) of 36.0 to 36.9 in adult (HCC); Financial difficulties Discharge Disposition: Discharged to home or Selfcare 12/07/2024 Travel from Last 3 Months Immunizations Immunization Administration Dates Next Due Influenza Vaccine 05/30/2019 Influenza Vaccine, Quadrivalent, PF 04/22,07/25/2020,06/03/2019,2017,04/21/2016,02/23/2015 Pneumococcal Vaccine Adult - 23 Valent 02/20/2015 Family History Medical History Relation Name Comments Hypertension Father Rheumatoid Arthritis Father Asthma Mother Relation Name Status Comments Father Alive Mother Alive Social History Tobacco Use Types Packs/Day Years Used Date Smoking Tobacco: Light Smoker Cigarettes Smokeless Tobacco: Never Tobacco Cessation:Ready to Q uit: No; Counseling Given: Yes Comments:Socially Alcohol Use Standard Drinks/Week Comments Yes [...] Sign Reading Time Taken Comments Blood Pressure 122/68 12/07/2024 2:40 PM CDT Pulse 86 12/07/2024 2:40 PM CDT Temperature 36.3 C (97.4 F) 12/07/2024 2:40 PM CDT Respiratory Rate 22 12/07/2024 2:40 PM CDT Oxygen Saturation 99% 12/07/2024 2:40 PM CDT Inhaled Oxygen Concentration - - Weight 103.8 kg (228 lb 12.8 oz) 12/07/2024 2:40 PM CDT Height 167.6 cm (5' 6) 12/07/2024 2:40 PM CDT Body Mass Index 36.93 12/07/2024 2:40 PM CDT Plan of Treatment Upcoming Encounters Date Type Department Care Team (Late st Contact Info) Description 03/10/2025 2:30 PM CDT Office Visit [facility] - Endocrinology - [place] [address] [place] [address] Fadi Bullard MD [address] [address] Health Maintenance Due Date Last Done Comments Mammogram 1977 TdaP Immunization 1977 Hepatitis B Immunization (1 of 3 - 19+ 3-dose series) 1996 HPV/Cotest 10/06/2007 Pneumococcal Immunization Combined (2 of 2 - PCV) 02/21/2016 02/20/2015 Discussion re Starting/Frequency of Mammograms 2017 Cervical Cancer Screening (CCS) 02/03/2021 Pap Smear 02/03/2021 02/03/2018 Cologuard 2022 Colonoscopy 2022 Colorectal Cancer Screening 2022 Immunochemical Fecal Occult Blood 2022 Diabetes: Eye Exam 03/03/2023 03/03/2022, 0 03/03/2022, 07/04/2020, Additional history exists SARS-COV-2 Immunization ( season) 2024 Diabetes: Nephropathy Screening 03/12/2024 03/12/2023, 03/12/2023, 03/12/2023, Additional history exists Influenza Immunization (#1) 02/20/202504/22, 07/25/2020, 06/03/2019, Additional history exists Diabetes: Hemoglobin A1c 06/08/202512/07/ 025, 07/19/2024, 03/12/2023, Additional history exists Diabetes: Foot Exam 12/07/2025 12/07/2024 Respiratory Syncytial Virus (RSV) Immunization (Adult) (1 - 1-dose 75+ series) 2052 Hepatitis C Virus (HCV) Screening Completed 08/01/2015, 06/11/2015 Human Papillomavirus (HPV) Immunization Aged Out No longer eligible based on patient's age to complete this topic Meningococcal Immunization (ACWY) Aged Out No longer eligible based on patient's age to complete this topic Rotavirus Immunization Aged Out No lo nger eligible based on patient's age to complete this topic Procedures Procedure Name Priority Date/Time Associated Diagnosis Comments POCT GLYCOSYLATED HEMOGLOBIN Routine 12/07/2024 2:49 PM CDT Type 2 diabetes mellitus with other circulatory complication, with long-term current use of insulin CMP (COMPREHENSIVE METABOLIC PANEL) 03/12/2023 12:00 AM CDT DILATED EYE EXAM 03/03/2022 1 2:00 AM CDT PATHOLOGY CYTOLOGY CAMPUS ADMINISTRATIVE ASSISTANT Routine 02/03/2018 HEPATITIS C ANTIBODY Routine 08/01/2015 8:56 AM SEED CLEANER OPERATOR Employee exposure to body fluids from Last 3 Months or Most Recently Relevant to Health Maintenance Results * (ABNORMAL) POCT GLYCOSYLATED HEMOGLOBIN (12/07/2024 2:49 PM CDT) HGB-A1C 10.3(A) 4 - 6 % Blood 12/07/2024 2:49 PM CDT us Fadi Bullard MD POINT OF CARE TESTING (MANUAL) F inal Result * CMP (COMPREHENSIVE METABOLIC PANEL) (03/12/2023 12:00 AM CDT) 03/12/2023 us Provider Scan CHEMISTRY ORDERABLES Final Resul t SCAN * DILATED EYE EXAM (03/03/2022 12:00 AM CDT) 03/03/2022 us Not On File Provider PROCEDURE/MINOR SURGICAL OR DERABLES Final Result SCAN * PATHOLOGY CYTOLOGY CAMPUS ADMINISTRATIVE ASSISTANT (02/03/2018) Specimen of unknown material (specimen) us Alma Delia Hernandez APRN, CNP PATHOLOGY/CYTOLOGY ORDERA BLES Final Result * HEPATITIS C ANTIBODY (08/01/2015 8:56 AM SEED CLEANER OPERATOR) hepatitis C antibody 0.12 <1 S/CO 08/01/2015 10:10 PM SEED CLEANER OPERATOR [facility] Comment: Signal/Cutoff ratio < 0.79 is Nondetected Signal/Cutoff ratio 0.80-0.99 is Grayzone Signal/Cutoff ratio > 0.99 is Detected Supplemental assays are recommended if signal/cutoff ratio is >/=1.00. Signal/cutoff ratio result >/= 5.00 is 97% predictive of positivity for recombinant immunoblot assay (RIBA) and will be reported to the [place] Department of Public Health as required. Blood specimen (specimen) Arterial Line / Unknown 08/01/2015 8:56 AM SEED CLEANER OPERATOR 08/01/2015 11:26 AM SEED CLEANER OPERATOR us Jesse Greene MD CHEMISTRY ORDERABLES Final R esult [facility] [address] [place] [address] from Last 3 Months or Most Recently Relevant to Health Maintenance Insurance [employer] Care Teams Mold Forms Builder Relationship Specialty Start Date End Date Marzena Gomes APRN, FLYING II INSTRUCTOR [address] [place] [address] PCP - General Advanced Practice Nurse 12/07/24 Harini Heath APRN, FLYING II INSTRUCTOR 2 [facility] [address] [place] [address] Certified Nurse Practitioner 06/24/16
--- OUTSIDE RECORDS SUMMARY | 2024-12-27 18:28 | XMS_ITS | Encounter Summary ---
Author Organization [facility] Address [address] [place] [address] Phone Care Team Providers Care Patient Registrar Name Role Phone Fritz Crook MD Primary Care Provider [phone] Fadi Bullard MD Unavailable Harini Heath APRN, [facility] Unavailable [phone] Fritz Crook MD Primary Care Provider [phone] Marzena Gomes MUNITIONS WORKER, [facility] Primary Care Provider Reason for Visit * Reason Comments Medication Refill Encounter Details Date Type Department Care Team (Late st Contact Info) Description 01/02/2020 Refill [facility] - Family Medicine [facility] #2 [place] [address] Fritz Crook MD #[address] [address] Medication Refill Social History Tobacco Use Types [...] encounter Miscellaneous Notes * Telephone Encounter - Zenia Rod RN - 01/06/2020 11:30 AM CDT Requested Prescriptions Pending Prescriptions Disp Refills ALPRAZolam (XANAX) 1 MG Tablet [Pharmacy Med Name: ALPRAZOLAM 1MG TABLETS] 80 Tab 0 Sig: TAKE ONE TABLET BY MOUTH THREE TIMES DAILY NEEDED FOR ANXIETY Not Delegated - Psychiatry: Anxiolytics/Hypnotics Failed - 01/02/2020 8:53 AM Failed - This refill cannot be delegated Passed - Valid encounter within last 6 months Past Office Visits Recent Outpatient Visits 3 months ago Essential hypertension [facility] Fritz Crook MD 6 months ago Type 2 diabetes mellitus without complication, with long-term current use of insulin (HCC) [facility] Fritz Barnett MD 1 year ago Anxiety [facility] Fritz Barnett MD 1 year ago Essential hypertension [facility] [employer] [facility] Fritz Barnett MD 1 year ago Hyperlipidemia, unspecified hyperlipidemia type [facility] Fritz Crook MD Upcoming Appointments Future Appointments In 1 month Fadi Bullard MD [facility], [facility] documented in this encounter Plan of Treatment Upcoming Encounters Date Type Department Care Team (Late st Contact Info) Description 03/10/2025 2:30 PM CDT Office Visit [facility] - Endocrinology - [place] [address] [place] [address] Fadi Bullard MD [address] [address] documented as of this encounter Visit Diagnoses Diagnosis Anxiety and depression Dysthymic disorder documented in this encounter Additional Health Concerns Infection Onset Date Last Indicated Resolved Time COVID - 19 06/18/2021 06/18/2021 07/08/2021 12:1 6 AM MICROBIOLOGICAL ANALYST COVID - 19 Confirmed 06/18/2021 06/18/2021 022 12:16 AM MICROBIOLOGICAL ANALYST Assessment Noted Time PHQ-9 Depression Total Score: 0 07/04/19 20 8:10 AM MICROBIOLOGICAL ANALYST documented as of this encounter Care Teams Patient Registrar Relationship Specialty Start Date End Date Fritz Crook MD #2 [facility] [address] [place] [address] PCP - General Family Medicine 05/08/15 04/05/22 Fritz Crook MD #2 [facility] [address] [place] [address] PCP - General Primary Care 12/10/22 08/08/24 Marzena Gomes APRN, MANAGER RADIATION [address] [place] [address] PCP - General Advanced Practice Nurse 12/07/24 Fadi Bullard MD #2 [facility] [address] [place] [phone] Consulting Physician Internal Medicine 01/08/16 Harini Curran MUNITIONS WORKER, MANAGER RADIATION 2 [facility] [address] [place] [address] Certified Nurse Practitioner 06/24/16 documented as of this encounter
--- OUTSIDE RECORDS SUMMARY | 2024-12-27 18:28 | XMS_ITS | Encounter Summary ---
Author Organization [facility] Address [address] [place] [address] Phone Care Team Providers Care Brancher Name Role Phone Fadi Bullard MD Unavailable Harini Heath APRN, CORRECTIONAL FACILITY NURSE Unavailable [phone] Fritz Crook MD Primary Care Provider [phone] Marzena Gomes RN [facility], [facility] Primary Care Provider Reason for Visit * Reason Comments Medication Refill Encounter Details Date Type Department Care Team (Late st Contact Info) Description 04/22/[address] [facility] - Family Medicine [facility] #2 [place] [id number] Fritz Crook MD #[address] [address] Medication Refill Social History Tobacco Use Types [...] Office Visit [facility] - Endocrinology [facility] #2 [place] [address] Fadi Bullard MD #[address] [address] documented as of this encounter Visit Diagnoses Not on filedocumented in this encounter Additional Health Concerns Assessment Noted Time PHQ-9 Depression Total Score: 5 07/25/19 21 4:00 PM UPHOLSTERY COVERS INSPECTOR documented as of this encounter Care Teams Brancher Relationship Specialty Start Date End Date Fritz Crook MD #[address] [address] PCP - General Primary Care 12/10/22 08/08/24 Marzena Gomes APRN, CORRECTIONAL FACILITY NURSE #2 [facility] [address] PCP - General Advanced Practice Nurse 12/07/24 Fadi Bullard MD #[address] [address] Consulting Physician Internal Medicine 01/08/16 Harini Curran APRN, CORRECTIONAL FACILITY NURSE 2 [facility] [address] [place] [address] Certified Nurse Practitioner 06/24/16 documented as of this encounter
--- OUTSIDE RECORDS SUMMARY | 2024-12-27 18:28 | XMS_ITS | Encounter Summary ---
Author Organization [facility] Address [address] [place] [address] Phone Care Team Providers Care Patrol Police Lieutenant Name Role Phone Fritz Crook MD Primary Care Provider [phone] Fadi Bullard MD Unavailable Harini Heath APRN, [facility] Unavailable [phone] Fritz Crook MD Primary Care Provider [phone] Marzena Gomes AUTOMOBILE LIGHTS ASSEMBLER, [facility] Primary Care Provider Reason for Visit * Reason Comments Medication Refill Encounter Details Date Type Department Care Team (Late st Contact Info) Description 02/06/2021 Refill [facility] - Family Medicine [facility] [address] [place] [phone] Fritz Crook MD #[address] [address] Medication Refill Social History Tobacco Use Types Packs/Day Years Used Date Smoking Tobacco: Never Smokeless Tobacco: Never Alcohol Use Standard Drinks/Week Comments Yes 4 (1 standard drink = 0.6 oz pur e alcohol) PHQ-2 Answer Date Recorded Total Score - Questions 1-9 5 08/2020 Education Answer Date Recorded What is the highest level of school you have completed or the highest degree you have received? Associate degree: academic program 07/25/2020 Sexually Active Control Partners Comments Yes Male Comments No Sex and Gender Information Value Date Recorded Sex Assigned at Not on file Legal Sex Female 11:11 PM CDT Gender Identity Not on file Sexual Orientation Not on file documented as of this encounter Miscellaneous Notes * Telephone Encounter - Fritz Crook MD - 02/06/2021 4:23 PM CDT Prescription pending signature * Telephone Encounter - Suzan Ballard RN - 02/06/2021 4:21 PM CDT [place] PDMP 01/09/21 - last appt 01/02/21 - follow up 05/06/21 Medication failed the protocol, provider to review and approve the medication order if appropriate. Requested Prescriptions Pending Prescriptions Disp Refills ALPRAZolam (XANAX) 1 MG Tablet [Pharmacy Med Name: ALPRAZOLAM 1MG TABLETS] 80 Tablet Sig: TAKE 1 TABLET BY MOUTH THREE TIMES DAILY NEEDED FOR ANXIETY There is no refill protocol information for this order documented in this encounter Plan of Treatment Upcoming Encounters Date Type Department Care Team (Late st Contact Info) Description 03/10/2025 2:30 PM CDT [facility] Visit [facility] [address]2 [place] [address] Fadi Bullard MD #[address] [address] documented as of this encounter Visit Diagnoses Diagnosis Anxiety and depression Dysthymic disorder documented in this encounter Additional Health Concerns Infection Onset Date Last Indicated Resolved Time COVID - 19 06/18/2021 06/18/2021 07/08/2021 12:1 6 AM CARE CONNECTOR COVID - 19 Confirmed 06/18/2021 06/18/2021 022 12:16 AM CARE CONNECTOR Assessment Noted Time PHQ-9 Depression Total Score: 5 07/25/19 21 4:00 PM CARE CONNECTOR documented as of this encounter Care Teams Patrol Police Lieutenant Relationship Specialty Start Date End Date Fritz Crook MD #2 [facility] [address] [place] [address] PCP - General Family Medicine 05/08/15 04/05/22 Fritz Crook MD [address] [address] PCP - General Primary Care 12/10/22 08/08/24 Marzena Gomes APRN, BUFFERER [address] [place] [address] PCP - General Advanced Practice Nurse 12/07/24 Fadi Bullard MD [address]2 [facility] [address] [place] [phone] Consulting Physician Internal Medicine 01/08/16 Harini Curran APRN, BUFFERER [address] [facility] [address] [place] [address] Certified Nurse Practitioner 06/24/16 documented as of this encounter
--- OUTSIDE RECORDS SUMMARY | 2024-12-27 18:28 | XMS_ITS | Encounter Summary ---
Author Organization [facility] Address [address] [place] [address] Phone Care Team Providers Care Systems Admin Name Role Phone Fritz Crook MD Primary Care Provider [phone] Fadi Bullard MD Unavailable Harini Heath APRN, [facility] Unavailable [phone] Fritz Crook MD Primary Care Provider [phone] Marzena Gomes PACKING AND STAMPING MACHINE OPERATOR, [facility] Primary Care Provider Reason for Visit * Reason Onset Date Comments Medication Refill 01/18/2020 Encounter Details Date Type Department Care Team (Late st Contact Info) Description 01/18/2020 Refill [facility] [address] [place], [place] [id number] Fritz Crook MD #[address] [address] Medication Refill Social History Tobacco Use Types [...] have Coronavirus / COVID-19? No / Unsure 01/18/2020 2:46 PM CDT documented as of this encounter Miscellaneous Notes * Telephone Encounter - Fritz Crook MD - 01/23/2020 2:13 PM CDT Prescription pending signature * Telephone Encounter - Eufemia Oliveira RN - 01/23/2020 1:52 PM CDT Medication failed the protocol, provider to review and approve the medication order. Requested Prescriptions Pending Prescriptions Disp Refills HYDROcodone-acetaminophen (NORCO) 10-325 MG Tablet 60 Tab 0 Sig: Take 1 Tab by mouth every 6 hours as needed (pain). Not Delegated - Analgesics: Opioid Agonist Combinations Failed - 01/23/2020 1:35 PM Failed - This refill cannot be delegated Passed - Valid encounter within last 6 months Past Office Visits Recent Outpatient Visits 3 months ago Essential hypertension [facility] Fritz Crook MD 6 months ago Type 2 diabetes mellitus without complication, with long-term current use of insulin (HCC) [facility] Fritz Barnett MD 1 year ago Anxiety [facility] Fritz Barnett MD 1 year ago Essential hypertension [facility] Fritz Crook MD 1 year ago Hyperlipidemia, unspecified hyperlipidemia type [facility] Fritz Crook MD Upcoming Appointments Future Appointments In 1 week Fritz Crook MD [facility], [facility] In 3 weeks Fadi Bullard MD [facility] ENDOCRINOLOGY, [facility] SOUND ENGINEERING TECHNICIAN - Recent and Past Visits Recent Visits Date Type Provider Dept 10/05/19 Telemedicine Fritz Crook MD [facility] [place] 07/04/19 Office Visit Fritz Crook MD [facility] [place] 11/22/18 Office Visit Fritz Crook MD [facility] Showing recent visits within past 460 days with a meds authorizing provider and meeting all other requirements Future Appointments Date Type Provider Dept 02/03/20 Appointment Fritz Crook MD [facility] Showing future appointments within next 90 days with a meds authorizing provider and meeting all other requirements 5 weeks ago (12/16/2019) HYDROcodone-acetaminophen (NORCO) 10-325 MG Tablet Take 1 Tab by mouth every 6 hours as needed (pain). Dispense: 60 Tab? Refills: 0? Start: 12/16/2019? * Telephone Encounter - Ana Maya RN - 01/23/2020 1:33 PM CDT Received: []FAX []TELEPHONE CALL []MYCHART [x]MESSAGE from: []PHARMACY [x]PATIENT/OTHER regarding medication management. Medication name and dose: hydrocodone-acetaminophen 10-325mg Quantity: (30 day, 90 day, 3 monthly scripts) 60 tabs Pharmacy preference for this medication: [facility] in [place] on [address] Outcome: [x]Medication pended, routed to surescripts []Medication refused []Informed caller of refills at pharmacy [x]Additional message to medication management RN []Verbal authorization for written order to pharmacy []Additional message to provider []Verified medication with pharmacy Ana, CHARLES, RN, CPPS, CPHQ Loan Servicing Specialist of Medication Management - [facility] Clinical Medication Management * Telephone Encounter - Marilynn Simms - 01/23/2020 11:34 AM CDT Patient out of medication. Sending to med management leadership. Medication: HYDROcodone-acetaminophen (NORCO) 10-325 MG Tablet ?? Pharmacy/location for refill to be sent to (if is not a written script)? [id number] - [place], [place] - [facility] [address] [facility] [address] * Telephone Encounter - Marino Nixon [place] - 01/18/2020 2:44 PM CDT Name of Medication: HYDROcodone-acetaminophen (NORCO) 10-325 MG Tablet Pharmacy/location for refill to be sent to (if is not a written script)? [id number] [place] [address] [facility] [address] 30 or 90 day supply? 60 Take 1 Tab by mouth every 6 hours as needed (pain). documented in this encounter Plan of Treatment Upcoming Encounters Date Type Department Care Team (Late st Contact Info) Description 03/10/2025 2:30 PM CDT Office Visit [facility] - Endocrin[facility] [address]2 [place] [address] Fadi Bullard MD #[address] [address] documented as of this encounter Visit Diagnoses Not on filedocumented in this encounter Additional Health Concerns Infection Onset Date Last Indicated Resolved Time COVID - 19 06/18/2021 06/18/2021 07/08/2021 12:1 6 AM MAINFRAME ARCHITECT COVID - 19 Confirmed 06/18/2021 06/18/2021 022 12:16 AM MAINFRAME ARCHITECT Assessment Noted Time PHQ-9 Depression Total Score: 0 07/04/19 20 8:10 AM MAINFRAME ARCHITECT documented as of this encounter Care Teams Systems Admin Relationship Specialty Start Date End Date Fritz Crook MD #[address] [address] PCP - General Family Medicine 05/08/15 04/05/22 Fritz Crook MD #[address] [address] PCP - General Primary Care 12/10/22 08/08/24 Marzena Gomes APRN, ETHANOL OPERATIONS MANAGER [address]2 [place] [address] PCP - General Advanced Practice Nurse 12/07/24 Fadi Bullard MD #[address] [phone] Consulting Physician Internal Medicine 01/08/16 5 Harini Heath APRN, ETHANOL OPERATIONS MANAGER 2 [facility] [address] [place] [address] Certified Nurse Practitioner 06/24/16 documented as of this encounter
--- OUTSIDE RECORDS SUMMARY | 2024-12-27 18:28 | XMS_ITS | Encounter Summary ---
Author Organization [facility] Address [address] [place] [address] Phone Care Team Providers Care Automobile Body Worker Name Role Phone Fritz Crook MD Primary Care Provider [phone] Fadi Bullard MD Unavailable Harini Heath APRN, [facility] Unavailable [phone] Fritz Crook MD Primary Care Provider [phone] Marzena Gomes LABOR RELATIONS MANAGER, [facility] Primary Care Provider Reason for Visit * Reason Comments Medication Refill Encounter Details Date Type Department Care Team (Late st Contact Info) Description 03/01/2021 Refill [facility] - Family Medicine [facility] #2 [place] [phone] Fritz Crook MD #[address] [address] Medication Refill Social History Tobacco Use Types [...] Telephone Encounter - Fritz Crook MD - 03/03/2021 3:31 PM CDT Prescription pending signature * Telephone Encounter - Suzan Ballard RN - 03/01/2021 12:57 PM CDT [place] 02/06/21 27 days - last appt 01/02/21 - follow up 05/06/21 Per nursing clinical judgement, provider to review and approve the medication(s) order(s) if appropriate. Requested Prescriptions Pending Prescriptions Disp Refills ALPRAZolam (XANAX) 1 MG Tablet [Pharmacy Med Name: ALPRAZOLAM 1MG TABLETS] 80 Tablet 0 Sig: TAKE 1 TABLET BY MOUTH THREE TIMES DAILY NEEDED FOR ANXIETY There is no refill protocol information for this order documented in this encounter Plan of Treatment Upcoming Encounters Date Type Department Care Team (Late st Contact Info) Description 03/10/2025 2:30 PM CDT Office Visit [facility] - Endocrinology - [place] #2 [place] [address] Fadi Bullard MD [address] [address] documented as of this encounter Visit Diagnoses Diagnosis Anxiety and depression Dysthymic disorder documented in this encounter Additional Health Concerns Infection Onset Date Last Indicated Resolved Time COVID - 19 06/18/2021 06/18/2021 07/08/2021 12:1 6 AM ROLLED GLASS CROSSCUTTER COVID - 19 Confirmed 06/18/2021 06/18/2021 022 12:16 AM ROLLED GLASS CROSSCUTTER Assessment Noted Time PHQ-9 Depression Total Score: 5 07/25/19 4:00 PM ROLLED GLASS CROSSCUTTER documented as of this encounter Care Teams Automobile Body Worker Relationship Specialty Start Date End Date Fritz Crook [facility] [address] [address] PCP - General Family Medicine 05/08/15 04/05/22 Fritz Crook MD #[address] [address] PCP - General Primary Care 12/10/22 08/08/24 Marzena Gomes APRN, PRODUCT MANUFACTURING PROFESSIONAL [address] [place] [address] PCP - General Advanced Practice Nurse 12/07/24 Fadi Bullard MD #[address] [phone] Consulting Physician Internal Medicine 01/08/16 Harini Curran APRN, PRODUCT MANUFACTURING PROFESSIONAL 2 [facility] [address] [place] [address] Certified Nurse Practitioner 06/24/16 documented as of this encounter
--- OUTSIDE RECORDS SUMMARY | 2024-12-27 18:28 | XMS_ITS | Clinical Summary ---
Author Organization [facility] Address [address] [place] [address] [place] [address] Care Team Providers Care Painting Department Supervisor Name Role Phone Fritz Crook MD Primary Care Provider [phone] Source Comments [facility],non-owned Affiliates and Associated Physician Practices is amultiple site organization consisting of ambulatory clinics and hospital sitesin [place], [place], [place] and [place]. This disclosure is being madepursuant to the Care Everywhere program and may not contain all information available regarding this patient. Last updated 18.[facility] [place] Allergies Active Allergy Reactions Criticality Noted Date Comments Morphine Anaphylaxis High 04/18/2024 Medications * Be aware that medications may not be up to date on this document. Alwaysverify current medications with the patient. glipiZIDE CR 24hr (Glucotrol XL) 10 MG tablet Take 1 (one) tablet by mouth once daily 07/19/19 25 026 Active gabapentin (Neurontin) 300 MG capsule Take 1 (one) capsule by mouth 2 times daily 06/29/19 25 Active diclofenac sodium EC (Voltaren) 75 MG tablet Take 1 (one) tablet by mouth 2 times daily 07/07/19 25 Active aspirin EC (Ecotrin) 81 MG tablet Take 1 (one) tablet by mouth once daily 06/29/19 25 Active insulin glargine (Lantus/Semglee) 100 units/mL pen Inject 25 (twenty five) Units subcutaneously once daily 08/01/19 25 Active insulin lispro (HumaLOG;ADMelog ) 100 UNIT/ML pen Inject 1 (one) Units to 30 (thirty) Units subcutaneously 3 times daily before meals Sliding Scale 09/14/19 24 Active levothyroxine (Synthroid) 100 MCG tablet Take 1 (one) tablet by mouth every morning 05/01/20 23 Active lisinopril-hydro CHLOROthiazide (Prinzide; Zestoretic) 20-25 MG tablet Take 1 (one) tablet by mouth once daily 07/06/19 25 Active metoclopramide (Reglan) 10 MG tablet Take 1 (one) tablet by mouth every 8 hours as needed 05/05/20 23 Active Semaglutide (1 MG/DOSE) 4 MG/3ML Subcutaneous Solution Pen-injector (Ozempic (1 MG/DOSE)) Inject 1 (one) mg subcutaneously every 7 days 05/01/20 23 Active tirzepatide (Mounjaro) 2.5 MG/0.5ML injection Inject 2.5 (two and one-half) mg subcutaneously every 7 days 07/19/19 25 Active ALPRAZolam (Xanax) 1 MG tablet Take 1 (one) tablet by mouth 3 times daily as needed for Anxiety, Insomnia or Other Active Naproxen Sodium 220 MG Take 400 mg by mouth 2 times daily as needed Active MULTIPLE VITAMIN PO Take 1 tablet by mouth once daily Active FIBER PO Take 1 tablet by mouth once daily Active Vitamin D, Ergocalciferol, [address] units CAPS Take 1 (one) capsule by mouth as directed 07/06/19 25 Active amoxicillin-clav ulanate (Augmentin) 875-125 MG tablet Take 1 (one) tablet by mouth 2 times daily with morning and evening meal 04/24/20 24 Active benzonatate (Tessalon) 100 MG capsule Take 1 (one) capsule by mouth 3 times daily as needed for Cough 05/25/20 24 Active Continuous Glucose Sensor (Dexcom G6 Sensor) MISC 1 device as directed 05/25/20 24 Active Continuous Glucose Sensor (FreeStyle Darya 3 Sensor) MISC 1 device as directed 08/27/19 25 Active Continuous Glucose Transmitter (Dexcom G6 Transmitter) MISC 1 device as directed 06/08/20 24 Active erythromycin (Romycin) 5 MG/GM ophthalmic ointment Instill into both eyes at bedtime 05/17/20 24 Active fluorometholone (FML) 0.1 % ophthalmic suspension Instill 1 (one) drop into both eyes 3 times daily 05/06/20 24 Active doxycycline monohydrate 100 MG capsule Take 1 (one) capsule by mouth once daily 05/17/20 24 Active ibuprofen (Motrin) 600 MG tablet Take 1 (one) tablet by mouth every 6 hours as needed pain 04/24/20 24 Active metoprolol succinate XL 24hr (Toprol XL) 100 MG tablet Take 1 (one) tablet by mouth once daily 05/27/20 24 Active meloxicam (Mobic) 7.5 MG tablet Take 1 (one) tablet by mouth once daily as needed for Pain 02/09/20 24 Active insulin aspart (NovoLOG) FlexPen Inject 0 (zero) Units to 30 (thirty) Units subcutaneously as directed 08/08/19 25 Active rosuvastatin (Crestor) 40 MG tablet Take 1 (one) tablet by mouth once daily 06/09/20 24 Active ofloxacin (Ocuflox) 0.3 % ophthalmic solution Instill 1 (one) drop into both eyes as directed 04/21/20 24 Active naproxen (Naprosyn) 500 MG tablet Take 1 (one) tablet by mouth 2 times daily 03/14/20 24 Active valACYclovir (Valtrex) 500 MG tablet Take 1 (one) tablet by mouth once daily 08/30/19 25 Active glipiZIDE (Glucotrol) 5 MG tablet Take 1 (one) tablet by mouth 2 times daily, before breakfast and supper 07/14/19 25 Active Active Problems Problem Noted Date Diagnosed Date Acute pain of right shoulder 12/20/2024 Diabetic ketoacidosis withou t coma associated with type 1 diabetes mellitus 08/19/2024 Severe obesity 04/18/2024 Arthritis of left acromioclavicular joint 2020 Biceps tendinitis of left upper extremity 2020 Impingement syndrome of left shoulder 11/14/2020 Bilateral carotid artery stenosis 05/25/2020 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 07/19/2019 Hypoglycemia 07/08/2019 Lactic acidosis 06/03/2019 Other chest pain 06/03/2019 Mixed hyperlipidemia 06/03/2019 Class 2 obesity in adult 06/03/2019 Uncontrolled type 2 diabetes mellitus with hyper glycemia 06/03/2019 Class 3 severe obesity due t o excess calories with serious comorbidity and body mass index (BMI) of 40.0 to 44.9 in adult 02/07/2019 Right upper quadrant abdominal pain 07/14/2018 Neck pain 04/07/2018 Diabetic ketoacidosis with c francisco associated with type 1 diabetes mellitus 07/12/2017 Leukocytosis 07/12/2017 Metabolic acidosis 07/12/2017 Hyperkalemia 07/12/2017 Sepsis 07/12/2017 Vaginal itching 07/12/2017 Pharyngeal disorder 04/07/2016 Left-sided low back pain without sciatica 2015 Arthralgia of both elbows 05/24/2015 Essential hypertension 05/08/2015 HLD (hyperlipidemia) 05/08/2015 Type 2 diabetes mellitus wit h microalbuminuria, with long-term current use of insulin 05/08/2015 Anxiety 05/04/2015 Resolved Problems Problem Noted Date Diagnosed Date Resolved Date Dehydration 07/12/2017 09/02/2024 Diarrhea 07/12/2017 09/16/2024 Encounters Date Type Department Care Team Description 12/20/2024 Orders Only [facility] - Orthopedics [address] [place] [phone] Erika Gonzalez PA-C Acute pain of right shoulder from Last 3 Months Immunizations Immunization Administration Dates Next Due FLU VACCINE TRI IIV3 SPLIT P F IM (FLUVIRIN) 05/30/2019 INFLUENZA VACCINE, QUADR. (F LUZONE; FLULAVAL; FLUARIX; AFLURIA QUADRIVALENT; 6MO+), 0.5 ML (IIV4) 05/01/2023,07/25/2020,06/03/2019,2017,04/21/2016,02/23/2015 PNEUMOCOCCAL PPSV23 02/20/2015 Social History Tobacco Use Types Packs/Day Years Used Date Smoking Tobacco: Never Assessed Comments Unknown Sex and Gender Information Value Date Recorded Sex Assigned at Not on file Legal Sex Female 5:57 PM GOLF COURSE STARTER Gender Identity Not on file Sexual Orientation Not on file Plan of Treatment Upcoming Encounters Date Type Department Care Team (Late st Contact Info) Description 12/28/2024 2:00 PM CDT Office Visit [facility] - Orthopedics [address] [place] [phone] Erika Gonzalez PA-C [address] [place] [address] Health Maintenance Due Date Last Done Comments COLOGUARD (AGES 45-75) - COLON CA SCREENING 1977 COLON MONITORING 1977 COLONOSCOPY - COLON CA SCREENING 1977 CT COLONOGRAPHY - COLON CA SCREENING 1977 Colorectal Cancer Screening 1977 FIT - COLON CA SCREENING 1977 FLEX SIG - COLON CA SCREENING 1977 MAMMOGRAM 1977 HIV SCREENING 1992 HEPATITIS C SCREENING 10/01/1995 DTAP/TDAP/TD VACCINES (1 - Tdap) 1996 HEPATITIS B VACCINE (1 of 3 - 19+ 3-dose series) 1996 PNEUMOCOCCAL VACCINE (2 of 2 - PCV) 02/21/2016 02/20/2015 PAP SMEAR 02/03/2021 02/03/2018 COVID-19 VACCINE (1 - season) 2024 DIABETES-SERUM CREATININE 03/12/2024 03/12/2023 DEPRESSION SCREENING 06/22/2024 DIABETES - URINE PROTEIN SCREENING 06/22/2024 DIABETES RETINOPATHY SCREENING 08/19/2024 DIABETES-FOOT EXAM WITH MONOFILAMENT 08/19/2024 DIABETES-HGB A1C 01/16/2025 07/19/2024 INFLUENZA VACCINE (#1) 2025 , 07/25/2020, 06/03/2019, Additional history exists ZOSTER VACCINE (1 of 2) 10/06/2027 HIB VACCINE Aged Out No longer eligi ble based on patient's age to complete this topic HPV VACCINE Aged Out No longer eligi ble based on patient's age to complete this topic MENINGOCOCCAL (Group B) VACCINE SHARED DECISION-MAKING Aged Out No longer eligible based on patient's age to complete this topic MENINGOCOCCAL GROUPS A/C/Y/W VACCINE Aged Out No longer eligible based on patient's age to complete this topic Insurance [facility] Care Teams Painting Department Supervisor Relationship Specialty Start Date End Date Fritz Crook MD PCP - General 12/03/17
--- NOTE | 2024-12-27 18:50 | ED_ITS ---
HPI - Female Genitourinary General Chief complaint: Urogenital-Female Stated complaint: poss UTI Time Seen by Provider: 12/27/24 18:50 History of Present Illness HPI Narrative: 49-year-old female presents Express Care complaining of urinary symptoms for the last 2-3 days. Reports low back pain, dysuria, hematocrit react, suprapubic pressure, nausea, body aches, tactile fevers. Patient states she has a history of urinary tract infections. Patient is not trending [id number]. Patient also states she has a history of CAD and carotid disease. Patient denies any heart attacks or stents placed. Patient said approximately 40 minutes so she developed left lateral upper chest wall pain that she says worse with movement of her left arm and is reproducible to palpation. Patient describes the pain as an ache. Patient states the pain is getting better but has not fully resolved. Patient denies any chest pain with exertion, palpitations, dyspnea, left jaw pain, left arm pain, or diaphoresis. Patient currently takes medications for her CAD. Related Data Home Medications ?Medication ?Instructions ?Recorded ?Confirmed ?Last Taken ?Type aspirin 81 mg tablet,delayed 81 mg PO DAILY 04/21/24 04/21/24 Unknown History release glipizide 5 mg tablet 5 mg PO DAILY 04/21/24 04/21/24 Unknown History levothyroxine 100 mcg tablet 100 mcg PO DAILY 04/21/24 04/21/24 Unknown History insulin aspart U-100 100 unit/mL subcut 12/27/24 Unknown History (3 mL) subcutaneous pen lisinopril 20 tablet 12/27/24 Unknown History mg-hydrochlorothiazide 25 mg tablet metoprolol succinate 100 mg mg PO 12/27/24 Unknown History tablet,extended release 24 hr simvastatin 20 mg tablet mg 12/27/24 Unknown History Allergies Allergy/AdvReac Type Severity Reaction Status Date / Time No Known Allergies Allergy Verified 12/27/24 18:37 Review of Systems Review of Systems: CONSTITUTIONAL: Denies chills, or sweats. Positive for tactile fevers and body aches. EYES: Denies visual changes, redness, or discharge. ENT: Denies rhinorrhea, congestion, sore throat, or otalgia. CARDIOVASCULAR: Denies chest pressure, chest pain with exertion, dizziness, lightheadedness, loss of consciousness, orthopnea, palpitations, or edema. RESPIRATORY: Denies cough, wheezing, or dyspnea. GASTROINTESTINAL: Denies abdominal pain, vomiting, or diarrhea. Positive for nausea. GENITOURINARY: Positive for dysuria, hematuria, suprapubic pain. Denies vaginal bleeding, pelvic pain. SKIN: Denies rash or itching. MUSCULOSKELETAL: Denies joint pain, or myalgia. Positive for back pain and chest wall pain. NEUROLOGIC: Denies headache, numbness, or weakness. PSYCHIATRIC: Denies anxiety or depression. All other systems reviewed are negative, except as documented in HPI. [facility] Past Medical History Medical History (Updated 12/27/24 @ 19:17 by Jin Lucio APRN) Hypothyroid Elevated cholesterol Hypertension Diabetes Social History Social History (Updated 04/26/24 @ 10:19 by Sasha Markham NP) Smoking status: Smoker, status unknown Alcohol intake: unknown Substance use: unknown Gender identity (if verbalized by the patient): Female Exam Narrative: GENERAL: This is a well-nourished, well-developed adult, in no apparent distress. They are non ill-appearing, nontoxic appearing. Patient is obese. HEAD: normocephalic, atraumatic. EYES: Sclera clear/white. Vision is grossly intact. EARS: External ears normal, Hearing grossly intact. NOSE: External nose normal THROAT: Mucous membranes moist, NECK: Neck supple, CARDIOVASCULAR: Regular rate and rhythm, systolic murmur best heard at the left upper sternal border 3/6. No clicks, gallops, or rubs. CHEST WALL: Tenderness to palpation to the left lateral upper chest wall. No accessory muscle use, no retractions. No bruising or paradoxical movements. RESPIRATORY: Clear to auscultation. Breath sounds equal bilaterally. No wheezes, rales, or rhonchi. GASTROINTESTINAL: Abdomen soft, large, mild suprapubic tenderness to palpation, nondistended. Bowel sounds are active. No hepato-splenomegaly, or palpable masses. No guarding or rigidity. SKIN: warm, Dry, intact with no suspicious lesions or rash, good texture and turgor. NEURO: awake, alert, and oriented to person, place and time. There were no obvious focal neurologic abnormalities. EXTREMITIES: No joint tenderness, effusion, or edema noted. BACK: Nontender without deformity. No CVA tenderness. Course Course Level of Care: Express Care Visit Vital Signs Vital signs: Vital Signs Temperature 98.2 F 12/27/24 18:27 Pulse Rate 77 12/27/24 18:27 Respiratory Rate 20 12/27/24 18:27 Blood Pressure 143/72 H 12/27/24 18:27 Pulse Oximetry 100 12/27/24 18:27 Oxygen Delivery Room Air 12/27/24 18:27 Temperature 98.2 F 12/27/24 18:27 Pulse Rate 77 12/27/24 18:27 Respiratory Rate 20 12/27/24 18:27 Blood Pressure 143/72 H 12/27/24 18:27 Pulse Oximetry 100 12/27/24 18:27 Oxygen Delivery Room Air 12/27/24 18:27 MDM - Female Genitourinary MDM Narrative Medical decision making narrative: Urine dipstick shows blood in urine. Patient's symptoms are consistent with urinary tract infection. Urine culture pending. Go ahead and treat with cephalexin. Patient's chest pain is reproducible to palpation to the left lateral upper chest wall. Patient does have history of CAD is currently on medication for it. INTERCHEST clinical prediction of chest pain score 0. Patient [place] scores 1. Low CAD risk. EKG is sinus rhythm without any ischemic findings. No ST elevation or depression. Offered patient ER transfer for further evaluation of her chest pain and patient declined. Patient is appropriate for outpatient follow-up for her chest pain. Advised patient if the chest pain gets worse turns into a pressure, associated with shortness of breath, nausea, sweating, left arm pain left jaw pain, or other concerns to go to the ER immediately. Patient hemodynamically stable, no apparent distress, nontoxic appearing, has the mental capacity to make informed medical decisions for herself. Discussed physical exam findings. Advised supportive measures and signs/symptoms to go to the ER. Pt is appropriate for outpt treatment and f/u. Differential Diagnosis Differential diagnosis: Likely urinary tract infection and other (ACS, atypical chest pain, stable angina, unstable angina, muscle strain, pyelonephritis, cystitis) Lab Data Attestation: I reviewed the patient's lab results. Labs: Lab Results 12/27/24 Range/Units 18:49 POC Urine Color Yellow POC Urine Clarity Cloudy POC Urine pH 5.5 POC Ur Specif [place] 1.015 POC Urine Protein Negative (Negative) POC Ur Glucose (UA) 2+ (Negative) POC Urine Ketones Negative (Negative) POC Urine Blood Trace (Negative) POC Urine Nitrite Negative (Negative) POC Urine Bilirubin Negative (Negative) POC Urine Urobilinogen 0.2 POC U Leukocyte Esteras Negative (Negative) ECG Data EKG #1: Attestation: I personally reviewed and interpreted this ECG as follows: ECG completion date: 12/27/24 ECG completion time: 19:01 Prior ECG tracings: not available for review EKG Interpretation: normal rate, sinus rhythm, no ectopy, no ST changes, normal QRS, normal QT, NL axis and no acute changes Discharge Plan Discharge Clinical Impression: Chest pain Qualifiers: Chest pain type: unspecified Qualified Code(s): R07.9 - Chest pain, unspecified Urinary tract infection Qualifiers: Urinary tract infection type: site unspecified Hematuria presence: with hematuria Qualified Code(s): N39.0 - Urinary tract infection, site not specified Patient Disposition: Home Condition: Stable Instructions: Antibiotic Form, Chest Pain (ED), Urinary Tract Infection in Women (ED) Additional Instructions: Your EKG today is normal sinus rhythm today. Please follow-up with your PCP or environmental sciences professor about your chest pain. It is likely of a urinary tract infection. Please take cephalexin as directed. The urine will be sent of for a culture to identify what type of bacteria is causing your infection. If the culture shows that the antibiotic will not get rid of your infection, you will be notified and a new antibiotic will be called in for you. You may take Tylenol or ibuprofen as needed for pain or fevers. Increase water intake you will need to follow up with your PCP 3-5 days. Go to the ER for any worsening symptoms, worsening chest pain, chest pressure, jaw pain, left arm pain, diaphoresis, abdominal pain, fevers, nausea, vomiting, or any other concerns Patient Language: Persian Prescriptions: New cephalexin 500 mg capsule 500 mg PO BID 7 Days Qty: 14 0RF No Action aspirin 81 mg tablet,delayed release (DR/EC) 81 mg PO DAILY levothyroxine 100 mcg tablet 100 mcg PO DAILY glipizide 5 mg tablet 5 mg PO DAILY metoprolol succinate 100 mg tablet extended release 24 hr PO simvastatin 20 mg tablet lisinopril-hydrochlorothiazide 20-25 mg tablet insulin aspart U-100 100 unit/mL (3 mL) insulin pen SUBCUT Follow-up/Referrals: Marzena Gomes, RN [Primary Care Provider] - Time of Disposition: 19:17
[2024-12-27 18:51] LABS: EDUAAPPEAR Cloudy; EDUABILI Negative (Negative); EDUABLOOD Trace (Negative); EDUACOLOR1 Yellow; EDUAGLUCOSE 2+ (Negative); EDUAKETONE Negative (Negative); EDUALEUKO Negative (Negative); EDUANITRATE Negative (Negative); EDUAPH 5.5; EDUAPROTEIN Negative (Negative); EDUASPGRAVITY 1.015; EDUAUROBILI 0.2
--- NOTE | 2024-12-27 18:55 | ECG_ITS ---
Test Date: 2024-12-27 19:01:13 Measurements Intervals [place] Rate: 72 P: 47 SC: 186 QRS: -5 QRSD: 97 T: 5 QT: 392 QTc: 432 Interpretive Statements SINUS RHYTHM No previous ECG available for comparison Electronically Signed On 12-28-2024 14:37:36 CDT by Mike Lunsford M.D.
== END 2024-12-27 19:20 | disposition home or self-care (01) ==
DX: R07.9 Chest pain, unspecified (principal); N39.0 Urinary tract infection, site not specified; I25.10 Atherosclerotic heart disease of native coronary artery without angina pectoris; Z79.82 Long term (current) use of aspirin; E11.9 Type 2 diabetes mellitus without complications; Z79.84 Long term (current) use of oral hypoglycemic drugs; Z79.4 Long term (current) use of insulin; I10 Essential (primary) hypertension; E78.00 Pure hypercholesterolemia, unspecified; E03.9 Hypothyroidism, unspecified
CPT/HCPCS: 81003; 87086; 93005; 99213; G0463

== ENCOUNTER 2025-05-16 13:01 | Emergency (ER) | payer OTHER, SELFPAY ==
--- NOTE | ~2025-05-16 | CT_ITS ---
EXAMINATION: CT brain wo con DATE: 05/16/2025 15:38 INDICATION: Vertigo TECHNIQUE: Computed tomography (CT) of the head was performed without intravenous contrast. Sagittal and coronal reconstructions were performed. The mA was adjusted according to patient size. Iterative reconstruction technique was employed. The dose-length product was 605.33 mGy-cm. COMPARISON: None FINDINGS: No acute intracranial hemorrhage, acute infarction or abnormal extra axial fluid collection. Ventricles are normal and symmetric. No mass/mass effect. The orbits, paranasal sinuses and mastoid air cells are normal. Left occipital osteoma. IMPRESSION: 1. No acute intracranial process. Reviewed, dictated and finalized at location A. CAMERA OPERATOR
--- NOTE | 2025-05-16 13:04 | ECG_ITS ---
Test Date: 2025-05-16 13:07:57 Measurements Intervals [place] Rate: 58 P: 22 UT: 153 QRS: -4 QRSD: 92 T: 3 QT: 404 QTc: 397 Interpretive Statements SINUS BRADYCARDIA OTHERWISE NORMAL ECG Compared to ECG 12/27/2024 19:01:13 HEART RATE DECREASED, NO OTHER DIFFERENT Electronically Signed On 05-16-2025 17:34:15 SCREW REMOVER by Fritz Engel M.D.
[2025-05-16 13:07] VITALS: BP 138/75; PULSE 70; RESP 18; TEMP 35.8; O2SAT 100
[2025-05-16 14:01] VITALS: PULSE 66
[2025-05-16 14:20] LABS: Hematocrit 38.9 % (37.0-47.0); Hemoglobin 13.2 g/dL (12.0-15.0); Immature Granulocyte Percent A 0.3 % (0-0.5); Lymphocytes Absolute Auto 2.49 K/mm3 (0.9-3.2); Mean Corpuscular HGB Conc 33.9 g/dl (32-36); Mean Corpuscular Hemoglobin 29.9 pg (26-34); Mean Corpuscular Volume 88.2 fl (80-100); Nucleated Red Blood Cells Absolute Auto 0.000 K/mm3 (0.0-0.012); Nucleated Red Blood Cells Perc 0.0 % (0.0-0.2); Platelet Count Result 306 k/mm3 (150-375); Red Blood Count 4.41 M/mm3 (4.2-5.4); White Blood Count 8.7 K/mm3 (4.5-10.0)
[2025-05-16 14:32] LABS: INR 1.0; Prothrombin Time 13.4 Seconds (11.1-14.7)
[2025-05-16 14:33] LABS: Partial Thromboplastin Time 29.7 Seconds (22.3-36.8)
--- OUTSIDE RECORDS SUMMARY | 2025-05-16 14:34 | XMS_ITS | Encounter Summary ---
Author Organization [facility] Address [address] [place] [address] Phone Care Team Providers Care Glove Parts Cutter Name Role Phone Fadi Bullard MD Unavailable Harini Heath APRN, SALES COMPENSATION ANALYST Unavailable [phone] Fritz Crook MD Primary Care Provider [phone] Marzena Gomes VOICE OVER ANNOUNCER, [facility] Primary Care Provider Reason for Visit * Reason Comments Medication Refill Encounter Details Date Type Department Care Team (Late st Contact Info) Description 09/14/2023 Refill [facility] - Endocrinology - [place] [address] [place] [address] Fadi Bullard MD [address] [address] Medication Refill Social History Tobacco [...] Care Team (Late st Contact Info) Description 07/05/2025 11:15 AM CERTIFIED PEDORTHOTIST Office Visit [facility] - [facility]ocrinology - [place] [address] [place] [address] Fadi Bullard MD #[address] [address] documented as of this encounter Visit Diagnoses Not on filedocumented in this encounter Additional Health Concerns Assessment Noted Time PHQ-9 Depression Total Score: 5 07/25/19 21 4:00 PM CERTIFIED PEDORTHOTIST documented as of this encounter Care Teams Glove Parts Cutter Relationship Specialty Start Date End Date Fritz Crook MD #[address] [address] PCP - General Primary Care 12/10/22 08/08/24 Marzena Gomes APRN, SALES COMPENSATION ANALYST #[address] [address] PCP - General Advanced Practice Nurse 12/07/24 Fadi Bullard MD #[address] [address] Consulting Physician Internal Medicine 01/08/16 5 Harini Heath APRN, SALES COMPENSATION ANALYST 2 [facility] [address] [place] [address] Certified Nurse Practitioner 06/24/16 documented as of this encounter
--- OUTSIDE RECORDS SUMMARY | 2025-05-16 14:34 | XMS_ITS | Encounter Summary ---
Author Organization [facility] Address [address] [place] [address] Phone Care Team Providers Care Magento Developer Name Role Phone Fritz Crook MD Primary Care Provider [phone] Fadi Bullard MD Unavailable Harini Heath APRN, [facility] Unavailable [phone] Fritz Crook MD Primary Care Provider [phone] Marzena Gomes APRN, [facility] Primary Care Provider Reason for Visit * Reason Comments Medication Refill Encounter Details Date Type Department Care Team (Late st Contact Info) Description 05/31/2020 Refill [facility] Medical [facility] - Family Medicine [facility] [address] [place] [address] Fritz Crook MD #[address] [address] Medication Refill Social History Tobacco Use Types [...] 05/31/2020 4:19 PM CST Prescription pending signature UNT SUPPORT ASSOCIATE * Telephone Encounter - Suzan Ballard RN [...] Outpatient Visits 3 months ago Essential hypertension [facility] Fritz Durbin MD 7 months ago Essential hypertension [facility] Fritz Durbin MD 11 months ago Type 2 diabetes mellitus without complication, with long-term current use of insulin ([facility]) [facility] Fritz Pickett MD 1 year ago Anxiety [facility] Fritz Durbin MD 1 year ago Essential hypertension [facility] Fritz Durbin MD Upcoming Appointments Future Appointments In 2 weeks [facility], [facility] PHYSICIAN GROUP LAB, [facility] In 2 weeks Fritz Crook MD [facility] - Recent and Past Visits Recent Visits Date Type Provider Dept 02/17/20 Office Visit Fritz Crook MD [facility] 10/05/19 Telemedicine Fritz Crook MD [facility] 07/04/19 Office Visit [facility] MD [facility] Showing recent visits within past 460 days with a meds authorizing provider and meeting all other requirements Future Appointments Date Type Provider Dept 06/20/20 Appointment [facility] future appointments within next 90 days with a meds authorizing provider and meeting all other requirements UNT SUPPORT ASSOCIATE documented in this encounter Plan of Treatment Upcoming Encounters Date Type Department Care Team (Late st Contact Info) Description 07/05/2025 11:15 AM ACCOUNT SUPPORT ASSOCIATE Office Visit [facility] - Endocrinology - [place] [address] [place] [address] Fadi Bullard MD #[address] [address] documented as of this encounter Visit Diagnoses Diagnosis Anxiety and depression Dysthymic disorder documented in this encounter Additional Health Concerns Infection Onset Date Last Indicated Resolved Time COVID - 19 06/18/2021 06/18/2021 07/08/2021 12:1 6 AM ACCOUNT SUPPORT ASSOCIATE COVID - 19 Confirmed 06/18/2021 06/18/2021 022 12:16 AM ACCOUNT SUPPORT ASSOCIATE Assessment Noted Time PHQ-9 Depression Total Score: 0 07/04/19 20 8:10 AM ACCOUNT SUPPORT ASSOCIATE documented as of this encounter Care Teams Magento Developer Relationship Specialty Start Date End Date Fritz Crook MD #2 [facility] [address] [place] [address] PCP - General Family Medicine 05/08/15 04/05/22 Fritz Crook MD #[address] [address] PCP - General Primary Care 12/10/22 08/08/24 Marzena Gomes APRN, HUMAN RESOURCES GENERALIST [address] [facility] [address] [place] [address] PCP - General Advanced Practice Nurse 12/07/24 Fadi Bullard MD #2 [facility] [address] [place] [address] Consulting Physician Internal Medicine 01/08/16 5 Harini Heath APRN, HUMAN RESOURCES GENERALIST [address] [facility] [address] [place] [address] Certified Nurse Practitioner 06/24/16 documented as of this encounter
--- OUTSIDE RECORDS SUMMARY | 2025-05-16 14:34 | XMS_ITS | Encounter Summary ---
Author Organization [facility] Address [address] [place] [address] Phone Care Team Providers Care Envelope Press Operator Name Role Phone Fadi Bullard MD Unavailable Harini Heath APRN, [facility] Unavailable [phone] Fritz Crook MD Primary Care Provider [phone] Marzena Gomes INSTRUCTOR WEAVING, [facility] Primary Care Provider Reason for Visit * Reason Comments Medication Refill Encounter Details Date Type Department Care Team (Late st Contact Info) Description 12/22/2023 Refill [facility] Medical Group - Endocrinology - [place] [address] [place] [address] Fadi Bullard MD #[address] [address] Medication Refill Social History Tobacco [...] st Contact Info) Description 07/05/2025 11:15 AM SUPERVISOR PATCHING Office Visit [facility] - [facility]ology - [place] [address] [place] [address] Fadi Bullard MD #[address] [address] documented as of this encounter Visit Diagnoses Not on filedocumented in this encounter Additional Health Concerns Assessment Noted Time PHQ-9 Depression Total Score: 5 07/25/19 21 4:00 PM SUPERVISOR PATCHING documented as of this encounter Care Teams Envelope Press Operator Relationship Specialty Start Date End Date Fritz Crook MD #[address] [address] PCP - General Primary Care 12/10/22 08/08/24 Marzena Gomes APRN, [employer]ER #[address] [address] PCP - General Advanced Practice Nurse 12/07/24 Fadi Bullard MD #[address] [address] Consulting Physician Internal Medicine 01/08/16 Harini Curran APRN, SOLE INKER 2 [facility] [address] [place] [address] Certified Nurse Practitioner 06/24/16 documented as of this encounter
--- OUTSIDE RECORDS SUMMARY | 2025-05-16 14:34 | XMS_ITS | Encounter Summary ---
Author Organization [facility] Address [address] [place] [address] Phone Care Team Providers Care [place] Name Role Phone Fritz Croko MD Primary Care Provider [phone] Fadi Bullard MD Unavailable Harini Heath APRN, [facility] Unavailable [phone] Fritz Crook MD Primary Care Provider [phone] Marzena Gomes STUDENT SERVICES COORDINATOR, [facility] Primary Care Provider Reason for Visit * Reason Onset Date Comments Medication Refill 07/02/2020 Encounter Details Date Type Department Care Team (Late st Contact Info) Description 07/02/2020 [facility]ill [facility] [address] [place] [id number] Fritz Crook MD [address] [address] Medication Refill Social History Tobacco Use Types [...] lab visit is 07/06/20 - OV 07/11/20 ALLER * Telephone Encounter - Suzan Ballard RN - 07/03/2020 10:43 AM CST OV 07/06/20 ALLER * Telephone Encounter - Suzan Ballard RN [...] Outpatient Visits 4 months ago Essential hypertension [facility] Fritz Durbin MD 9 months ago Essential hypertension [facility] Fritz Durbin MD 1 year ago Type 2 diabetes mellitus without complication, with long-term current use of insulin (HCC) [facility] Fritz Pickett MD 1 year ago Anxiety [facility] Fritz Durbin MD 1 year ago Essential hypertension [facility] Fritz Durbin MD Upcoming Appointments Future Appointments In 3 days [facility], [facility] In 3 days Fadi Bullard MD [facility] Arrive at: Virtual Visit In 1 week Fritz Crook MD [facility] PELT INSPECTOR - Recent and Past Visits Recent Visits [...] Outpatient Visits 4 months ago Essential hypertension [facility] Fritz Durbin MD 9 months ago Essential hypertension [facility] Fritz Durbin MD 1 year ago Type 2 diabetes mellitus without complication, with long-term current use of insulin (HCC) [facility] Fritz Durbin MD 1 year ago Anxiety [facility] Fritz Durbni MD 1 year ago [facility] Upcoming Appointments Future Appointments In 3 days [facility] PHYSICIAN GROUP [facility], [facility] In 3 days Fadi Bullard MD [facility] Endocrinology [facility] Arrive at: Virtual Visit In 1 week Fritz Crook MD [facility] PELT INSPECTOR - Recent and Past Visits Recent Visits Date Type Provider Dept 02/17/20 Office Visit Fritz Crook MD [facility] 10/05/19 Telemedicine Fritz Crook MD [facility] 07/04/19 Office Visit Fritz Crook MD [facility] Showing recent visits within past 460 days with a meds authorizing provider and meeting all other requirements Future Appointments Date Type Provider Dept 07/11/20 Appointment Fritz Crook MD [facility] Showing future appointments within next 90 days with a meds authorizing provider and meeting all other requirements ALLER * Telephone Encounter - Erika Dawn - [...] scripts) 30 Pharmacy preference for this medication: [id number] [facility] Outcome: [x]Medication pended, routed to surescripts []Medication refused []Informed caller of refills at pharmacy []Additional message to medication management RN []Verbal authorization for written order to pharmacy []Additional message to provider []Verified medication with pharmacy Erika Medication Management ALLER documented in this encounter Plan of Treatment Upcoming Encounters Date Type Department Care Team (Late st Contact Info) Description 07/05/2025 11:15 AM DRYWALLER Office Visit [facility] - End[facility] - [place] [address] [place] [address] Fadi Bullard MD #[address] [address] documented as of this encounter Visit Diagnoses Diagnosis Anxiety and depression Dysthymic disorder documented in this encounter Additional Health Concerns Infection Onset Date Last Indicated Resolved Time COVID - 19 06/18/2021 06/18/2021 07/08/2021 12:1 6 AM DRYWALLER COVID - 19 Confirmed 06/18/2021 06/18/2021 022 12:16 AM DRYWALLER Assessment Noted Time PHQ-9 Depression Total Score: 0 07/04/19 20 8:10 AM DRYWALLER documented as of this encounter Care Teams Tar [place]el Relationship Specialty Start Date End Date Fritz Crook MD #2 [facility] [address] [place] [address] PCP - General Family Medicine 05/08/15 04/05/22 Fritz Crook MD #2 [facility] [address] [place] [address] PCP - General Primary Care 12/10/22 08/08/24 Marzena Gomes APRN, METAL SPRAYING MACHINE OPERATOR 2 [facility] [address] [place] [address] PCP - General Advanced Practice Nurse 12/07/24 Fadi Bullard MD #2 [facility] [address] [place] [address] Consulting Physician Internal Medicine 01/08/16 Harini Curran APRN, METAL SPRAYING MACHINE OPERATOR 2 [facility] [address] [place] [address] Certified Nurse Practitioner 06/24/16 documented as of this encounter
--- OUTSIDE RECORDS SUMMARY | 2025-05-16 14:34 | XMS_ITS | Encounter Summary ---
Author Organization [facility] Address [address] [place] [address] Phone Care Team Providers Care Learning And Development Assistant Name Role Phone Fadi Bullard MD Unavailable Harini Heath APRN, DRILLER BRAKE LINING Unavailable [phone] Fritz Crook MD Primary Care Provider [phone] Marzena Gomes ENGINEER THIRD ASSISTANT, [facility] Primary Care Provider Reason for Visit * Reason Comments Medication Refill Encounter Details Date Type Department Care Team (Late st Contact Info) Description 12/16/2022 Refill [facility] Group - Family Medicine [facility] #2 [place] [phone] Fritz Crook MD #[address] [address] Medication Refill Social History Tobacco Use Types [...] st Contact Info) Description 07/05/2025 11:15 AM CLOTH WINDER MACHINE OPERATOR [facility] Visit [facility] - [place] #2 [place] [address] Fadi Bullard MD #2 [facility] [address] [place] [address] documented as of this encounter Visit Diagnoses Not on filedocumented in this encounter Additional Health Concerns Assessment Noted Time PHQ-9 Depression Total Score: 5 07/25/19 21 4:00 PM CLOTH WINDER MACHINE OPERATOR documented as of this encounter Care Teams Learning And Development Assistant Relationship Specialty Start Date End Date Fritz Crook MD #[address] [address] PCP - General Primary Care 12/10/22 08/08/24 Marzena Gomes APRN, DRILLER BRAKE LINING #[address] [address] PCP - General Advanced Practice Nurse 12/07/24 Fadi Bullard MD #[address] [address] Consulting Physician Internal Medicine 01/08/16 5 Harini Heath APRN, DRILLER BRAKE LINING 2 [facility] [address] [place] [address] Certified Nurse Practitioner 06/24/16 documented as of this encounter
--- OUTSIDE RECORDS SUMMARY | 2025-05-16 14:34 | XMS_ITS | Encounter Summary ---
Author Organization [facility] Address [address] [place] [address] Phone Care Team Providers Care Support Representative Name Role Phone Fadi Bullard MD Unavailable Harini Heath APRN, CORPORATE DIRECTOR Unavailable [phone] Fritz Crook MD Primary Care Provider [phone] Marzena Gomes BILLBOARD ERECTOR, [facility] Primary Care Provider Reason for Visit * Reason Comments Medication Refill Encounter Details Date Type Department Care Team (Late st Contact Info) Description 12/23/2023 Refill [facility] Medical Group - Family Medicine [facility] #2 [place] [phone] Fritz Crook MD #[address] [address] Medication Refill Social History Tobacco Use Types [...] st Contact Info) Description 07/05/2025 11:15 AM MALTED MILK SUPERVISOR Office Visit [facility] - [place] #2 [place] [address] Fadi Bullard MD #2 [facility] [address] [place] [address] documented as of this encounter Visit Diagnoses Not on filedocumented in this encounter Additional Health Concerns Assessment Noted Time PHQ-9 Depression Total Score: 5 07/25/19 21 4:00 PM MALTED MILK SUPERVISOR documented as of this encounter Care Teams Support Representative Relationship Specialty Start Date End Date Fritz Crook MD #[address] [address] PCP - General Primary Care 12/10/22 08/08/24 Marzena Gomes APRN, CORPORATE DIRECTOR #[address] [address] PCP - General Advanced Practice Nurse 12/07/24 Fadi Bullard MD #[address] [address] Consulting Physician Internal Medicine 01/08/16 5 Harini Heath APRN, CORPORATE DIRECTOR 2 [facility] [address] [place] [address] Certified Nurse Practitioner 06/24/16 documented as of this encounter
--- OUTSIDE RECORDS SUMMARY | 2025-05-16 14:34 | XMS_ITS | Clinical Summary ---
Author Organization [facility] Address [address] [facility], [place] [address] Phone Care Team Providers Care Telephone Engineer Name Role Phone Pass, Hariniparam Rojo APRN, OBJECTIVE C DEVELOPER Unavailable [phone] Marzena Gomes OPTICAL ENGINEERING TECHNICIAN, OBJECTIVE C DEVELOPER Primary Care Provider Allergies No known active allergies Medications Insulin Pen Needle (Pen [place]) 32G X 4 MM MiscIndications :Type 2 diabetes mellitus with microalbuminuri a, with long-term current use of insulin 4 times a day 400 Each 3 1 Active pravastatin (PRAVACHOL) 40 MG Tablet Take 1 Tablet by mouth daily. 90 Tablet 3 1 Active cyclobenzaprine (FLEXERIL) 10 MG Tablet Take 1 Tablet by mouth 3 times daily as needed for Muscle spasms. 90 Tablet 1 1 Active Additional Information Patient not taking.Reported on 12/07/2024 Multiple Vitamin (DAILY VITAMIN PO) Take by mouth. Act marcio FIBER PO Take by mouth daily. Active lisinopril-hydr oCHLOROthiazide (PRINZIDE, ZESTORETIC) 20-25 MG Tablet TAKE 1 TABLET BY MOUTH DAILY 90 Tablet 1 2 Active acyclovir (ZOVIRAX) 400 MG Tablet Take 1 Tablet by mouth 2 times daily. 60 Tablet 6 2 Active Additional Information Patient not taking.Reported on 12/07/2024 aspirin 81 MG Chewable Tablet Take 1 Tablet by mouth daily. 90 Tablet 1 2 Active metoprolol Succinate (TOPROL-XL) 50 MG TABLET SR 24 HR Take 1 Tablet by mouth daily. 90 Tablet 1 2 Active amLODIPine (NORVASC) 5 MG Tablet TAKE 1 TABLET BY MOUTH DAILY 90 Tablet 2 Active Additional Information Patient not taking.Reported on 12/07/2024 ciprofloxacin (CIPRO) 500 MG Tablet Take 500 mg by mouth 2 times daily. 3 Active valACYclovir (VALTREX) 500 MG Tablet Take 500 mg by mouth daily. 3 Active Continuous Blood Gluc Transmit (Dexcom G6 Transmitter) Misc Every 3 months. 1 Each 3 4 Active Additional Information Patient not taking.Reported on 12/07/2024 levothyroxine (SYNTHROID) 100 MCG Tablet Take 100 mcg by mouth every morning. 3 Active glipiZIDE (GLUCOTROL) 10 MG TabletIndicatio ns:Type [...] insulin Every 14 days 6 Each 3 5 Active Continuous Glucose Mr Teacher (FreeStyle Darya 3 Roland) DeviceIndicatio ns:Type 2 diabetes mellitus with other circulatory complication, with long-term current use of insulin Check blood glucose before each meal and at bedtime 1 Each 5 Active Glucose Blood (OneTouch Ultra) StripIndication s:Type 2 diabetes mellitus with other circulatory complication, with long-term current use of insulin 4 times a day 400 Each 3 5 Active Blood Glucose Monitoring Suppl (ONE TOUCH ULTRA 2) w/Device KitIndications: Type 2 diabetes mellitus with other circulatory complication, with long-term current use of insulin Check blood glucose before each meal and at bedtime 1 Each 5 Active Lancets MiscIndications :Type 2 diabetes mellitus with other circulatory complication, with long-term current use of insulin Test 4x daily. 400 Lancet . 3 5 Active Insulin Degludec 100 UNIT/ML SolutionIndicat ions:Type 2 diabetes mellitus with other circulatory complication, with long-term current use of insulin 40 Units by Subcutaneous route every morning. 45 mL 1 5 Active Insulin Aspart FlexPen 100 UNIT/ML Solution Pen-injectorInd ications:Type 2 diabetes mellitus with other circulatory complication, with long-term current use of insulin 14 units before each meal; correctional factor insulin of 1:20 if >140 mg/dL, up to 90 units per day 90 mL 1 5 Active Active Problems Problem Noted Date Diagnosed [...] Encounters Date Type Department Care Team Description 04/13/2025 Travel 04/07/2025 Transcribe Orders [facility] Central Scheduling 1 [place] [address] Marzena Gomes, OPTICAL ENGINEERING TECHNICIAN, OBJECTIVE C DEVELOPER Low back pain, unspecified back pain laterality, unspecified chronicity, unspecified whether sciatica present (Primary Dx) from Last 3 Months Immunizations Immunization Administration [...] st Contact Info) Description 07/05/2025 11:15 AM SUPPLY CHAIN MANAGER Office Visit [facility] - End[facility] - [place] #[address] [place] [address] Fadi Bullard MD #[address] [phone] Health Maintenance Due Date Last Done Comments [...] 03/03/2022, 0 03/03/2022, 07/04/2020, Additional history exists Diabetes: Nephropathy Screening 03/12/2024 03/12/2023, 03/12/2023, 03/12/2023, Additional history exists Influenza Immunization (#1) 02/20/202504/22, 07/25/2020, 06/03/2019, Additional history exists SARS-COV-2 Immunization ( season) 2025 Diabetes: Hemoglobin A1c 06/08/2025 025, 07/19/2024, 03/12/2023, Additional history exists Diabetes: [...] (COMPREHENSIVE METABOLIC PANEL) 03/12/2023 12:00 AM CDT HM DILATED EYE EXAM 03/03/2022 1 2:00 AM CDT PATHOLOGY CYTOLOGY GAMER Routine 02/03/2018 HEPATITIS C ANTIBODY Routine 08/01/2015 8:56 AM SUPPLY CHAIN MANAGER Employee exposure to body fluids from Last 3 Months or Most Recently Relevant to Health Maintenance Results * (ABNORMAL) POCT GLYCOSYLATED HEMOGLOBIN (12/07/2024 2:49 PM CDT) Pathologist [facility] HGB-A1C 10.3(A) 4 - 6 % Blood 12/07/2024 2:49 PM CDT us Fadi Bullard MD POINT OF CARE TESTING (MANUAL) F inal Result * CMP (COMPREHENSIVE METABOLIC PANEL) (03/12/2023 12:00 AM CDT) 03/12/2023 us Provider Scan CHEMISTRY ORDERABLES Final Resul t SCAN * HM DILATED EYE EXAM (03/03/2022 12:00 AM CDT) 03/03/2022 us Not On File Provider PROCEDURE/MINOR SURGICAL OR DERABLES Final Result SCAN * PATHOLOGY CYTOLOGY GAMER (02/03/2018) Specimen of unknown material (specimen) us Alma Delia Hernandez APRN, CNP PATHOLOGY/CYTOLOGY ORDERA BLES Final Result * HEPATITIS C ANTIBODY (08/01/2015 8:56 AM SUPPLY CHAIN MANAGER) Pathologist [facility] hepatitis C antibody 0.12 <1 S/CO 08/01/2015 10:10 PM SUPPLY CHAIN MANAGER [facility] Comment: Signal/Cutoff ratio < 0.79 is Nondetected Signal/Cutoff ratio 0.80-0.99 is Grayzone Signal/Cutoff ratio > 0.99 is Detected Supplemental assays are recommended if signal/cutoff ratio is >/=1.00. Signal/cutoff ratio result >/= 5.00 is 97% predictive of positivity for recombinant immunoblot assay (RIBA) and will be reported to the [place] Department of Public Health as required. Blood specimen (specimen) Arterial Line / Unknown 08/01/2015 8:56 AM SUPPLY CHAIN MANAGER 08/01/2015 11:26 AM SUPPLY CHAIN MANAGER us Jesse Greene MD CHEMISTRY ORDERABLES Final R esult [facility] [address] [place] [address] from Last 3 Months or Most Recently Relevant to Health Maintenance Insurance [employer]TER Care Teams Telephone Engineer Relationship Specialty Start Date End Date Marzena Gomes, OPTICAL ENGINEERING TECHNICIAN, OBJECTIVE C DEVELOPER 2 [facility] [address] [place] [address] PCP - General Advanced Practice Nurse 12/07/24 Harini Heath APRN, OBJECTIVE C DEVELOPER 2 [facility] [address] [place] [address] Certified Nurse Practitioner 06/24/16
--- OUTSIDE RECORDS SUMMARY | 2025-05-16 14:34 | XMS_ITS | Encounter Summary ---
Author Organization [facility] Address [address] [place] [address] Phone Care Team Providers Care Outsewer Name Role Phone Fadi Bullard MD Unavailable Harini Heath APRN, TRAFFIC ROUTING ENGINEER Unavailable [phone] Fritz Crook MD Primary Care Provider [phone] Marzena Gomes SUPERVISOR COMPUTER OPERATIONS, [facility] Primary Care Provider Reason for Visit * Reason Comments Medication Refill Encounter Details Date Type Department Care Team (Late st Contact Info) Description 04/10/2023 Refill [facility] - Endocrinology - [place] #2 [place] [address] Fadi Bullard MD #[address] [address] Medication Refill Social History Tobacco [...] Miscellaneous Notes * Telephone Encounter - Sherry Montesinos RN - 04/13/2023 1:33 PM CDT Requested [...] st Contact Info) Description 07/05/2025 11:15 AM FOOD TASTER Office Visit [facility] - [facility]ology - [place] #2 [place] [address] Fadi Bullard MD #[address] [address] documented as of this encounter Visit Diagnoses Not on filedocumented in this encounter Additional Health Concerns Assessment Noted Time PHQ-9 Depression Total Score: 5 07/25/19 21 4:00 PM FOOD TASTER documented as of this encounter Care Teams Outsewer Relationship Specialty Start Date End Date Fritz Crook MD #[address] [address] PCP - General Primary Care 12/10/22 08/08/24 Marzena Gomes APRN, TRAFFIC ROUTING ENGINEER #[address] [address] PCP - General Advanced Practice Nurse 12/07/24 Fadi Bullard MD #[address] [address] Consulting Physician Internal Medicine 01/08/16 5 Harini Heath APRN, TRAFFIC ROUTING ENGINEER 2 [facility] [address] [place] [address] Certified Nurse Practitioner 06/24/16 documented as of this encounter
--- OUTSIDE RECORDS SUMMARY | 2025-05-16 14:34 | XMS_ITS | Encounter Summary ---
Author Organization [facility] Address [address] [place] [address] Phone Care Team Providers Care Project Administrator Name Role Phone Fritz Crook MD Primary Care Provider [phone] Fadi Bullard MD Unavailable Harini Heath APRN, CAR PUSHER Unavailable [phone] Fritz Crook MD Primary Care Provider [phone] Marzena Gomes APRN, [facility] Primary Care Provider Reason for Visit * Reason Comments Medication Refill Encounter Details Date Type Department Care Team (Late st Contact Info) Description 02/06/2021 Refill [facility] Medical Group - Family Medicine [facility] #2 [place] [phone] Fritz Crook MD #[address] [address] Medication Refill Social History Tobacco Use Types [...] st Contact Info) Description 07/05/2025 11:15 AM CONCRETE ROD BUSTER Office Visit [facility] Medical Group - Endocrinology [facility] #2 [place] [address] Fadi Bullard MD #[address] [address] documented as of this encounter Visit Diagnoses Diagnosis Anxiety and depression Dysthymic disorder documented in this encounter Additional Health Concerns Infection Onset Date Last Indicated Resolved Time COVID - 19 06/18/2021 06/18/2021 07/08/2021 12:1 6 AM CONCRETE ROD BUSTER COVID - 19 Confirmed 06/18/2021 06/18/2021 022 12:16 AM CONCRETE ROD BUSTER Assessment Noted Time PHQ-9 Depression Total Score: 5 07/25/19 21 4:00 PM CONCRETE ROD BUSTER documented as of this encounter Care Teams Project Administrator Relationship Specialty Start Date End Date Fritz Crook MD #2 [facility] [address] [place] [address] PCP - General Family Medicine 05/08/15 04/05/22 Fritz Crook MD #2 [facility] [address] [place] [address] PCP - General Primary Care 12/10/22 08/08/24 Marzena Gomes APRN, CAR PUSHER 2 [facility] [address] [place] [address] PCP - General Advanced Practice Nurse 12/07/24 Fadi Bullard MD #2 [facility] [address] [place] [address] Consulting Physician Internal Medicine 01/08/16 5 Harini Heath APRN, CAR PUSHER 2 [facility] [address] [place] [address] Certified Nurse Practitioner 06/24/16 documented as of this encounter
--- OUTSIDE RECORDS SUMMARY | 2025-05-16 14:34 | XMS_ITS | Encounter Summary ---
Author Organization [facility] Address [address] [place] [address] Phone Care Team Providers Care White Metal Caster Name Role Phone Fadi Bullard MD Unavailable Harini Heath APRN, SUSTAINABILITY ENGINEER Unavailable [phone] Fritz Crook MD Primary Care Provider [phone] Marzena Gomes JACKER, [facility] Primary Care Provider Reason for Visit * Reason Comments Medication Refill Encounter Details Date Type Department Care Team (Late st Contact Info) Description 04/22/2023 Refill [facility] - Family Medicine [facility] #2 [place] [address] Fritz Crook MD #[address] [address] Medication Refill Social History Tobacco Use Types [...] st Contact Info) Description 07/05/2025 11:15 AM ELECTROMECHANICAL TECHNOLOGIST Office Visit [facility] - [place] #2 [place] [address] Fadi Bullard MD #2 [facility] [address] [place] [address] documented as of this encounter Visit Diagnoses Not on filedocumented in this encounter Additional Health Concerns Assessment Noted Time PHQ-9 Depression Total Score: 5 07/25/19 21 4:00 PM ELECTROMECHANICAL TECHNOLOGIST documented as of this encounter Care Teams White Metal Caster Relationship Specialty Start Date End Date Fritz Crook MD #[address] [address] PCP - General Primary Care 12/10/22 08/08/24 Marzena Gomes APRN, SUSTAINABILITY ENGINEER #[address] [address] PCP - General Advanced Practice Nurse 12/07/24 Fadi Bullard MD #[address] [address] Consulting Physician Internal Medicine 01/08/16 5 Harini Heath APRN, SUSTAINABILITY ENGINEER [address] [facility] [address] [place] [address] Certified Nurse Practitioner 06/24/16 documented as of this encounter
--- OUTSIDE RECORDS SUMMARY | 2025-05-16 14:34 | XMS_ITS | Encounter Summary ---
Author Organization [facility] Address [address] [place] [address] Phone Care Team Providers Care Machine Folder Name Role Phone Fadi Bullard MD Unavailable Harini Heath APRN, MULTIPLEX OPERATOR Unavailable [phone] Firtz Crook MD Primary Care Provider [phone] Marzena Gomes ELECTRICAL WIRING LINEMAN, [facility] Primary Care Provider Reason for Visit * Reason Comments Medication Refill Encounter Details Date Type Department Care Team (Late st Contact Info) Description 07/02/2022 Refill [facility] Group - Family Medicine [facility] #2 [place] [address] Fritz Crook MD #[address] [address] Medication Refill Social History Tobacco Use Types [...] st Contact Info) Description 07/05/2025 11:15 AM GLOVE CUTTER [facility] Visit [facility] - [place] #2 [place] [address] Fadi Bullard MD #2 [facility] [address] [place] [address] documented as of this encounter Visit Diagnoses Not on filedocumented in this encounter Additional Health Concerns Assessment Noted Time PHQ-9 Depression Total Score: 5 07/25/19 21 4:00 PM GLOVE CUTTER documented as of this encounter Care Teams Machine Folder Relationship Specialty Start Date End Date Fritz Crook MD #[address] [address] PCP - General Primary Care 12/10/22 08/08/24 Marzena Gomes APRN, MULTIPLEX OPERATOR #[address] [address] PCP - General Advanced Practice Nurse 12/07/24 Fadi Bullard MD #[address] [address] Consulting Physician Internal Medicine 01/08/16 5 Harini Heath APRN, MULTIPLEX OPERATOR 2 [facility] [address] [place] [address] Certified Nurse Practitioner 06/24/16 documented as of this encounter
--- OUTSIDE RECORDS SUMMARY | 2025-05-16 14:34 | XMS_ITS | Clinical Summary ---
Author Organization [facility] Address [address] [place] [address] Care Team Providers Care Obiee Consultant Name Role Phone Marzena Gomes FIELD INTERVIEWER Primary Care Provider Allergies Active Allergy Reactions [...] 5/16 needle Active blood-glucose meter,continuous ([employer]6 [employer] Counselor) misc USE DIRECTED BY OFFICE Active NAPROXEN, [...] 05/25/2020 Assessment & Plan (05/25/2020 11:26 AM PAINT STRIPPER): Patient's carotid disease was mild and probably only needs every 2-3 year follow-up with ultrasound. 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 Assessment & Plan (06/03/2019 4:02 AM PAINT STRIPPER): Concerning for cardiac etiology. Patient has risk factors including uncontrolled diabetes, hypertension, hyperlipidemia, obesity and tobacco use. Patient's grandparents also had MIs. Troponins negative x4. Will order a stress test. Cardiology was consulted. P.r.n. Nitroglycerin which seems to help patient's pain. Uncontrolled type 2 diabetes mellitus with hyper glycemia 06/03/2019 Assessment & Plan (06/03/2019 4:05 AM PAINT STRIPPER): Secondary to noncompliance. Patient is supposed to [...] 06/03/2019 Assessment & Plan (06/03/2019 4:04 AM PAINT STRIPPER): Pressures are under control. Will continue metoprolol with hold parameters. Will hold lisinopril and hydrochlorothiazide for now as I suspect patient may be dehydrated due to hyperglycemia and will be receiving IV fluids. Will continue to monitor. Mixed hyperlipidemia 06/03/2019 Assessment & Plan (06/03/2019 4:00 AM PAINT STRIPPER): Continue Lipitor Class 2 obesity in adult 06/03/2019 Lactic acidosis 06/03/2019 Assessment & Plan (06/03/2019 4:14 AM PAINT STRIPPER): Suspect this is from dehydration from hyperglycemia. Currently resolved. Class 3 severe obesity due t o excess calories with serious comorbidity and body mass index (BMI) of 40.0 to 44.9 in adult 02/07/2019 Right upper quadrant abdominal pain 07/14/2018 Neck pain 04/07/2018 Diabetic ketoacidosis with c francisco associated with type 1 diabetes mellitus 07/12/2017 Assessment & Plan (07/12/2017 8:31 PM PAINT STRIPPER): The patient is type 1 diabetic follows [...] 07/12/2017 Assessment & Plan (07/12/2017 8:32 PM PAINT STRIPPER): In the setting of diabetes probably Marlena vaginitis. Post started already on fluconazole. She continues having significant itching also will treat with a topical miconazole vaginally. Metabolic acidosis 07/12/2017 Assessment & Plan (07/12/2017 8:35 PM PAINT STRIPPER): Likely multifactorial possible UTI in the setting [...] 07/12/2017 Assessment & Plan (07/12/2017 8:56 PM PAINT STRIPPER): The so far not identified source of [...] 07/12/2017 Assessment & Plan (07/12/2017 8:55 PM PAINT STRIPPER): New onset diarrhea , no previous history of chronic diarrhea . Patient denies any recent antibiotic use. No recent hospitalizations. Possibly infectious will check stool studies, will get flu swab Hyperkalemia 07/12/2017 Assessment & Plan (07/12/2017 8:55 PM PAINT STRIPPER): In the setting or diabetic ketoacidosis. Likely due to elevated blood sugars. Correct underlying cause monitor with BMP every 2 hr and replace as needed per hypokalemia protocol Dehydration 07/12/2017 Assessment & Plan (07/12/2017 8:54 PM PAINT STRIPPER): Multifactorial due to uncontrolled type 1 diabetes with DKA possible UTI and diarrhea. IV fluids strict I&Os correct underlying causes Sepsis 07/12/2017 Overview (07/12/2017): Assessment & Plan (07/12/2017 9:03 PM PAINT STRIPPER): Patient meets the criteria for sepsis with [...] History Medical History Date Comments Diabetes mellitus Depression Anxiety Hypertension Chest pain Hyperlipidemia Nonocclusive coronary atherosclerosis of ho-chunk coronary artery 07/19/2019 Bilateral carotid artery stenosis [...] on file Legal Sex Female 4:49 PM PAINT STRIPPER Gender Identity Not on file Sexual Orientation Not on file Last Filed Vital Signs Vital Sign Reading Time Taken Comments Blood Pressure 132/62 07/19/2024 4:08 PM PAINT STRIPPER Pulse 63 06/29/2024 2:45 PM PAINT STRIPPER Temperature 36.6 C (97.9 F) 04/25/2024 4:51 PM PAINT STRIPPER Respiratory Rate 18 04/25/2024 9:45 PM PAINT STRIPPER Oxygen Saturation 97% 04/25/2024 9:45 PM PAINT STRIPPER Inhaled Oxygen Concentration - - Weight 108.7 kg (239 lb 11.2 oz) 07/19/2024 4:08 PM PAINT STRIPPER Height 165.1 cm (5' 5) 07/19/2024 4:08 PM PAINT STRIPPER Body Mass Index 39.89 07/19/2024 4:08 PM PAINT STRIPPER Plan of Treatment Health Maintenance Due Date [...] A1C 01/16/2025 07/19/2024, 03/23, 07/12/2017 Influenza Vaccine (#1) 2025 , 07/25/2020, 06/03/2019, Additional history exists Dilated Eye Exam 04/18/2025 04/18/2024 Foot Exam 04/18/2025 04/18/2024 eGFR 04/25/2025 04/25/2024, 08/2023, 05/05/2023, Additional history exists TSH Level Discontinued 03/12/2023, 05/22, 07/12/2017 Medical Devices Implanted Type Area Superintendent Sales Device Identifier Shelf Expiration Date Model / Serial / Lot [employer] [id number] Angio-Seal Evolution 6fr .035in Guidewire Bypass Tube Suture - [id number] Implanted:Qty: 1 on 06/03/2019 by Neeraj Alvarado MD at [facility] Other - see comments [employer] 01/20/2020 [id number] / / [id number] Procedures Procedure Name Priority Date/Time Associated Diagnosis Comments POCT HEMOGLOBIN A1C Routine 07/19/2024 4 :15 PM PAINT STRIPPER Type 2 diabetes mellitus with hyperglycemia, with long-term current use of insulin (HCC) EGFR STAT 04/25/2024 5:09 PM PAINT STRIPPER RETINAVUE SCANNER - OU - BOTH EYES Routine 04/18/2024 Type 2 diabetes mellitus with hyperglycemia, with long-term current use of insulin (HCC) LIPID PANEL Routine 06/03/2019 1:25 AM PAINT STRIPPER TSH STAT 06/02/2019 4:14 PM PAINT STRIPPER from Last 3 Months or Most Recently Relevant to Health Maintenance Results * (ABNORMAL) POCT hemoglobin A1c (07/19/2024 4:15 PM PAINT STRIPPER) Hemoglobin A1C, POC 10.2 4.0 - 5.6 % Blood 07/19/2024 4:15 PM PAINT STRIPPER us Екатерина Doran DO POINT OF CARE TEST ORDERABL ES Final Result * eGFR (04/25/2024 5:09 PM PAINT STRIPPER) eGFR >90 >=60 mL/min/1. 73 m2 Comment: [...] last reviewed 2021. Blood 04/25/2024 5:09 PM PAINT STRIPPER 04/25/2024 5:13 PM PAINT STRIPPER us Maritza Murphy MD LAB BLOOD ORDERABLE S Final Result [facility] ([place]) [address] [facility] Department [place] [address] * RetinaVue Scanner - OU - Both Eyes (04/18/2024) Anatomical Region Laterality Modality Head Fundus Photograp hy 04/18/2024 us Екатерина Doran DO OPHTH PHOTOGRAPHY Final Res ult * (ABNORMAL) Lipid panel (06/03/2019 1:25 AM PAINT STRIPPER) Cholesterol 137 30 - 199 mg/dL LONG [...] ([place]) Blood specimen (specimen) 06/03/2019 1:25 AM PAINT STRIPPER 06/03/2019 1:27 AM PAINT STRIPPER us Maritza Murphy MD LAB BLOOD ORDERABLE S Final Result [facility] ([place]) 1 [facility] Department [place] [address] * TSH (06/02/2019 4:14 PM PAINT STRIPPER) Thyroid Stimulating Hormone 3.32 0.30 - 4.20 mcIUnit/mL [facility] ([place]) Blood specimen (specimen) 06/02/2019 4:14 PM PAINT STRIPPER 06/02/2019 4:27 PM PAINT STRIPPER us Maritza Murphy MD LAB BLOOD ORDERABLE S Final Result [facility] ([place]) 1 [facility] Department [place] [address] from Last 3 Months or Most Recently Relevant to Health Maintenance Insurance [facility] Advance Directives For more information, please contact: [phone] * Full Code (Latest Code Status on File) Date Activated Date Inactivated Comments 06/02/2019 8:32 PM 06/03/2019 10:19 PM * Full Code Date Activated Date Inactivated Comments 07/12/2017 7:52 PM 07/16/2017 3:59 PM * Full Code Date Activated Date Inactivated Comments 07/12/2017 11:40 AM 07/12/2017 7:52 PM Care Teams Obiee Consultant Relationship Specialty Start Date End Date Marzena Gomes NP PCP - General Nurse Practitioner 04/25/24
--- OUTSIDE RECORDS SUMMARY | 2025-05-16 14:34 | XMS_ITS | Encounter Summary ---
Author Organization [facility] Address [address] [place] [address] Phone Care Team Providers Care Digital Content Marketing Manager Name Role Phone Fritz Crook MD Primary Care Provider [phone] Fadi Bullard MD Unavailable Harini Heath APRN, STALLION MANAGER Unavailable [phone] Fritz Crook MD Primary Care Provider [phone] Marzena Gomes APRN, [facility] Primary Care Provider Reason for Visit * Reason Comments Medication Refill Encounter Details Date Type Department Care Team (Late st Contact Info) Description 03/01/2021 Refill [facility] Medical Group - Family Medicine [facility] [address] [place] [id number] Fritz Crook MD #[address] [address] Medication Refill Social History Tobacco Use Types [...] st Contact Info) Description 07/05/2025 11:15 AM ROLL THREADER OPERATOR Office Visit [facility] [address]2 [place] [address] Fadi Bullard MD #[address] [address] documented as of this encounter Visit Diagnoses Diagnosis Anxiety and depression Dysthymic disorder documented in this encounter Additional Health Concerns Infection Onset Date Last Indicated Resolved Time COVID - 19 06/18/2021 06/18/2021 07/08/2021 12:1 6 AM ROLL THREADER OPERATOR COVID - 19 Confirmed 06/18/2021 06/18/2021 022 12:16 AM ROLL THREADER OPERATOR Assessment Noted Time PHQ-9 Depression Total Score: 5 07/25/19 21 4:00 PM ROLL THREADER OPERATOR documented as of this encounter Care Teams Digital Content Marketing Manager Relationship Specialty Start Date End Date Fritz Crook MD #2 [facility] [address] [place] [address] PCP - General Family Medicine 05/08/15 04/05/22 Fritz Crook MD #2 [facility] [address] [place] [address] PCP - General Primary Care 12/10/22 08/08/24 Marzena Gomes APRN, STALLION MANAGER 2 [facility] [address] [place] [address] PCP - General Advanced Practice Nurse 12/07/24 Fadi Bullard MD #2 [facility] [address] [place] [address] Consulting Physician Internal Medicine 01/08/16 Harini Curran APRN, STALLION MANAGER 2 [facility] [address] [place] [address] Certified Nurse Practitioner 06/24/16 documented as of this encounter
--- OUTSIDE RECORDS SUMMARY | 2025-05-16 14:34 | XMS_ITS | Clinical Summary ---
Author Organization [facility] Address [address] [place] [address] [place] [address] Care Team Providers Care Inspector Eyeglass Frames Name Role Phone Fritz Crook MD Primary Care Provider [phone] Source Comments [facility],non-owned Affiliates and Associated Physician Practices is amultiple site organization consisting of ambulatory clinics and hospital sitesin [place], [place], [place] and [place]. This disclosure is being madepursuant to the Care Everywhere program and may not contain all information available regarding this patient. 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 Hypoglycemia 07/08/2019 Lactic acidosis [...] Date Dehydration 07/12/2017 09/02/2024 Diarrhea 07/12/2017 09/16/2024 Immunizations Immunization Administration Dates Next Due FLU [...] on file Legal Sex Female 5:57 PM CATERPILLAR TRACTOR OPERATOR Gender Identity Not on file Sexual Orientation Not on file Plan of Treatment Health Maintenance Due Date Last Done Comments COLOGUARD (AGES 45-75) - COLON CA SCREENING 1977 COLON MONITORING 1977 COLONOSCOPY - COLON CA SCREENING 1977 CT COLONOGRAPHY - COLON CA SCREENING 1977 Colorectal Cancer Screening 1977 FIT - COLON CA SCREENING 1977 FLEX SIG - COLON CA SCREENING 1977 MAMMOGRAM 1977 HIV SCREENING 1992 HEPATITIS C SCREENING 10/01/1995 DIABETES-SERUM CREATININE 10/06/1995 DTAP/TDAP/TD VACCINES (1 - Tdap) 1996 HEPATITIS B VACCINE (1 of 3 - 19+ 3-dose series) 1996 PAP with HPV 10/06/2007 PNEUMOCOCCAL VACCINE (2 of 2 - PCV) 02/21/2016 02/20/2015 Cervical Cancer Screening 02/03/2021 PAP SMEAR 02/03/2021 02/03/2018 DEPRESSION SCREENING 06/22/2024 DIABETES - URINE PROTEIN SCREENING 06/22/2024 DIABETES RETINOPATHY SCREENING 08/19/2024 DIABETES-FOOT EXAM WITH MONOFILAMENT 08/19/2024 DIABETES-HGB A1C 08/19/2024 COVID-19 VACCINE ( season) 2025 INFLUENZA VACCINE (#1) 2025 3, 07/25/2020, 06/03/2019, Additional history exists ZOSTER VACCINE [...] patient's age to complete this topic Insurance [facility] [place] [place] Address: [address] [address] Care Teams Inspector Eyeglass Frames Relationship Specialty Start Date End Date Fritz Crook MD PCP - General 12/03/17
[2025-05-16 15:05] LABS: Thyroid Stimulating Hormone Reflex 4.560 uIU/mL (0.465-4.68)
[2025-05-16 15:21] LABS: Alanine Aminotransferase 16 U/L (6-35); Albumin Level 4.1 g/dL (3.5-5.1); Alkaline Phosphatase 77 U/L (38-126); Anion Gap 5 mmol/L (4-12); Aspartate Amino Transferase 20 U/L (14-36); Bilirubin,Total 0.5 mg/dL (0.2-1.3); Blood Urea Nitrogen 11 mg/dL (7-17); Calcium 9.5 mg/dL (8.4-10.2); Carbon Dioxide 28 mmol/L (22-30); Chloride 101 mmol/L (98-107); Estimated CRCL calculation 126 ml/min; Estimated Glomerular Filt Rate > 60; Glucose 249 mg/dL (65-110); Magnesium 1.7 mg/dL (1.6-2.3); Potassium 4.4 mmol/L (3.4-5.0); Sodium 134 mmol/L (137-145); Total Protein 7.2 g/dL (6.3-8.2)
--- NOTE | 2025-05-16 15:27 | ED.GENADULT ---
HPI - General Adult General Chief complaint: Arrhythmia/Palpitations Stated complaint: BRADYCARDIA,DIZZINESS Time Seen by Provider: 05/16/25 13:37 History of Present Illness HPI narrative: 49-year-old female presenting to the emergency department for evaluation for worsening vertigo symptoms since Thursday. Patient states that she noticed she was having worsening dizziness symptoms over the last few days. Patient states that with movement or with rest she can have symptoms of feel like she is moving. Patient does report the symptoms are worsened when she is lying down flat and or rolling over. Patient denies any feelings of lightheadedness or feeling like she was going to pass out. Patient did attempt to have follow-up with primary care physician and patient was referred to the emergency department for a CT scan. Patient was reported to have bradycardia in the office but patient does take 100 mg of metoprolol. Patient denies any prior history bradycardia or adverse effects of the metoprolol. Related Data Home Medications ?Medication ?Instructions ?Recorded ?Confirmed ?Last Taken ?Type aspirin 81 mg tablet,delayed 81 mg PO DAILY 04/21/24 04/21/24 Unknown History release glipizide 5 mg tablet 5 mg PO DAILY 04/21/24 04/21/24 Unknown History levothyroxine 100 mcg tablet 100 mcg PO DAILY 04/21/24 04/21/24 Unknown History insulin aspart U-100 100 unit/mL subcut 12/27/24 Unknown History (3 mL) subcutaneous pen lisinopril 20 tablet 12/27/24 Unknown History mg-hydrochlorothiazide 25 mg tablet metoprolol succinate 100 mg mg PO 12/27/24 Unknown History tablet,extended release 24 hr simvastatin 20 mg tablet mg 12/27/24 Unknown History Allergies Allergy/AdvReac Type Severity Reaction Status Date / Time morphine AdvReac Itching Verified 05/16/25 13:02 Review of Systems Review of Systems: All systems reviewed & are unremarkable except as noted in HPI and below PMFSH Past Medical History Medical History (Updated 05/16/25 @ 17:19 by Mick Olivia MD) Hypothyroid Elevated cholesterol Hypertension Diabetes Social History Social History (Updated 04/26/24 @ 10:19 by Sasha Markham APRN) Smoking status: Smoker, status unknown Alcohol intake: unknown Substance use: unknown Gender identity (if verbalized by the patient): Female Exam Narrative: APPEARANCE: Well appearing, no pain, no distress, well-nourished. HEAD: normocephalic, atraumatic. EYES: PERRLA/EOMI, conjunctivae clear. NOSE: Normal no drainage EARS:TMS clear with good light reflex. THROAT: Pharynx clear, no exudate. NECK: Supple. No adenopathy, no masses. RESPIRATORY: Airway patent, respirations nonlabored. Clear to auscultation bilaterally, no rales, rhonchi, wheezing. CARDIOVASCULAR: Regular rate and rhythm without murmurs rubs or gallops. ABDOMINAL: Soft, nontender, nondistended, normal bowel sounds MUSCULOSKELETAL: Moves all extremities. Strength/ROM intact, No edema, No calf tenderness. NEURO: Alert. Cranial nerves II through XII intact. Good gait. Good coordination SKIN: Warm, dry. Normal Color Course Vital Signs Vital signs: Vital Signs Temperature 96.4 F L 05/16/25 13:07 Pulse Rate 70 05/16/25 13:07 Respiratory Rate 18 05/16/25 13:07 Blood Pressure 138/75 05/16/25 13:07 Pulse Oximetry 100 05/16/25 13:07 Oxygen Delivery Room Air 05/16/25 13:07 Temperature 96.4 F L 05/16/25 13:07 Pulse Rate 70 05/16/25 17:32 Respiratory Rate 17 05/16/25 17:32 Blood Pressure 129/70 05/16/25 17:32 Pulse Oximetry 100 05/16/25 17:32 Oxygen Delivery Room Air 05/16/25 13:07 Medical Decision Making [facility] Narrative Medical decision making narrative: 49-year-old female emergency department for evaluation for vertiginous symptoms. Patient reports that she has been having worsening episodes of dizziness 1 was when she was sitting on the edge of the bed bending over and she felt like the world was spinning. Patient does also complain of having an episode of bradycardia today. Patient does take a high dose of metoprolol and perhaps this was affecting her bradycardia. Patient states that her vertigo or dizziness was not significantly affecting her the emergency department. Patient was able to ambulate without issue. Patient had a negative head CT. Patient had no issues with bradycardia in the emergency department. Patient will be provided meclizine for potential vertigo control. Patient was also encouraged close follow-up with primary care physician and to monitor her pulse for episodes of bradycardia. Patient was also educated on reasons to return to the emergency department. All questions and concerns were addressed. Patient was well-appearing at time of discharge. Differential Diagnosis Differential Diagnosis: Vertigo, cardiac syncope, adverse drug reaction, bradycardia, TIA, CVA, subdural hematoma, subarachnoid hemorrhage Vital Signs Vital Signs: Vital Signs Temperature 96.4 F L 05/16/25 13:07 Pulse Rate 70 05/16/25 13:07 Respiratory Rate 18 05/16/25 13:07 Blood Pressure 138/75 05/16/25 13:07 Pulse Oximetry 100 05/16/25 13:07 Oxygen Delivery Room Air 05/16/25 13:07 Temperature 96.4 F L 05/16/25 13:07 Pulse Rate 70 05/16/25 17:32 Respiratory Rate 17 05/16/25 17:32 Blood Pressure 129/70 05/16/25 17:32 Pulse Oximetry 100 05/16/25 17:32 Oxygen Delivery Room Air 05/16/25 13:07 Lab Data Lab results reviewed: Yes I reviewed the patient's lab results. 05/16/25 14:09 05/16/25 15:04 Labs: Lab Results 05/16/25 05/16/25 Range/Units 14:09 15:04 WBC 8.7 (4.5-10.0) K/mm3 RBC 4.41 (4.2-5.4) M/mm3 Hgb 13.2 (12.0-15.0) g/dL Hct 38.9 (37.0-47.0) % MCV 88.2 (80-100) fl MCH 29.9 (26-34) pg MCHC 33.9 (32-36) g/dl RDW 13.2 (11.5-14.5) % Plt Count 306 (150-375) k/mm3 MPV 10.1 (7.4-10.4) fl Immature Gran % (Auto) 0.3 (0-0.5) % Neut % (Auto) 63.1 (45.5-73.1) % Lymph % (Auto) 28.7 (18.3-44.2) % Garvin % (Auto) 5.2 (2.6-8.5) % Eos % (Auto) 1.8 (0-4.4) % Baso % (Auto) 0.9 (0.2-1.2) % Lymph # (Auto) 2.49 (0.9-3.2) K/mm3 Garvin # (Auto) 0.5 (0.1-0.6) K/mm3 Eos # (Auto) 0.2 (0-0.3) K/mm3 Baso # (Auto) 0.1 (0.0-0.1) K/mm3 Abs Immat Gran (auto) 0.03 (0.00-0.031) K/mm3 Absolute Neuts (auto) 5.5 (1.3-6.7) K/mm3 Absolute Nucleated RBC 0.000 (0.0-0.012) K/mm3 Nucleated RBC % 0.0 (0.0-0.2) % PT 13.4 (11.1-14.7) Seconds INR 1.0 APTT 29.7 (22.3-36.8) Seconds Sodium 134 L (137-145) mmol/L Potassium 4.4 (3.4-5.0) mmol/L Chloride 101 (98-107) mmol/L Carbon Dioxide 28 (22-30) mmol/L Anion Gap 5 (4-12) mmol/L BUN 11 (7-17) mg/dL Creatinine 0.54 L (0.7-1.0) mg/dL Estim Creat Clear Calc 126 ml/min Estimated GFR > 60 (59 - ) Glucose 249 H (65-110) mg/dL Calcium 9.5 (8.4-10.2) mg/dL Magnesium 1.7 (1.6-2.3) mg/dL Total Bilirubin 0.5 (0.2-1.3) mg/dL AST 20 (14-36) U/L ALT 16 (6-35) U/L Alkaline Phosphatase 77 (38-126) U/L Total Protein 7.2 (6.3-8.2) g/dL Albumin 4.1 (3.5-5.1) g/dL TSH (Reflex) 4.560 (0.465-4.68) uIU/mL Free T4 1.21 (0.78-2.19) ng/dL Total T3 1.09 (0.82-1.58) NG/ML Imaging Data Radiologist's impression: Impressions Head CT 05/16/25 15:39 IMPRESSION: 1. No acute intracranial process. Discharge Plan Discharge Clinical Impression: Bradycardia, Vertigo Patient Disposition: Home Condition: Stable Instructions: Antibiotic Form, Benign Paroxysmal Positional Vertigo (DC), Bradycardia (ED) Additional Instructions: Monitor your heart rate for episodes of bradycardia. Next dizziness as needed for or vertigo symptoms. Have close follow-up with your primary care physician. If you have any worsening symptoms then please call or return to the emergency department. Patient Language: Anguillan Prescriptions: New meclizine 25 mg tablet 25 mg PO BID PRN (Reason: dizziness) 7 Days Qty: 14 0RF No Action aspirin 81 mg tablet,delayed release (DR/EC) 81 mg PO DAILY levothyroxine 100 mcg tablet 100 mcg PO DAILY glipizide 5 mg tablet 5 mg PO DAILY metoprolol succinate 100 mg tablet extended release 24 hr PO simvastatin 20 mg tablet lisinopril-hydrochlorothiazide 20-25 mg tablet insulin aspart U-100 100 unit/mL (3 mL) insulin pen SUBCUT cephalexin 500 mg capsule 500 mg PO BID 7 Days Qty: 14 0RF Follow-up/Referrals: Eliseo,Marzena Lock, BRASS FINISHER [Primary Care Provider, Unknown]
--- OUTSIDE RECORDS SUMMARY | 2025-05-16 15:27 | XMS_ITS | Encounter Summary ---
Author Organization [facility] Address [address] [place] [address] Phone Care Team Providers Care Manager Behavior Name Role Phone Fadi Bullard MD Unavailable Harini Heath APRN, PRODUCE ASSOCIATE Unavailable [phone] Fritz Crook MD Primary Care Provider [phone] Marzena Gomes CLEATER, [facility] Primary Care Provider Reason for Visit * Reason Comments Medication Refill Encounter Details Date Type Department Care Team (Late st Contact Info) Description 12/23/2023 Refill [facility] Medical Group - Family Medicine [facility] [address] [place] [phone] Fritz Crook MD #[address] [address] Medication Refill Social History Tobacco Use Types [...] st Contact Info) Description 07/05/2025 11:15 AM MATERIALS PLANNING ANALYST Office Visit [facility] - [place] #2 [place] [address] Fadi Bullard MD #2 [facility] [address] [place] [address] documented as of this encounter Visit Diagnoses Not on filedocumented in this encounter Additional Health Concerns Assessment Noted Time PHQ-9 Depression Total Score: 5 07/25/19 21 4:00 PM MATERIALS PLANNING ANALYST documented as of this encounter Care Teams Manager Behavior Relationship Specialty Start Date End Date Fritz Crook MD #[address] [address] PCP - General Primary Care 12/10/22 08/08/24 Marzena Gomes APRN, PRODUCE ASSOCIATE #[address] [address] PCP - General Advanced Practice Nurse 12/07/24 Fadi Bullard MD #[address] [address] Consulting Physician Internal Medicine 01/08/16 5 Harini Heath APRN, PRODUCE ASSOCIATE 2 [facility] [address] [place] [address] Certified Nurse Practitioner 06/24/16 documented as of this encounter
--- OUTSIDE RECORDS SUMMARY | 2025-05-16 15:27 | XMS_ITS | Encounter Summary ---
Author Organization [facility] Address [address] [place] [address] Phone Care Team Providers Care Comparison Shopper Name Role Phone Fritz Crook MD Primary Care Provider [phone] Fadi Bullard MD Unavailable Harini Heath APRN, COLLISION WORKER Unavailable [phone] Fritz Crook MD Primary Care Provider [phone] Marzena Gomes APRN, [facility] Primary Care Provider Reason for Visit * Reason Comments Medication Refill Encounter Details Date Type Department Care Team (Late st Contact Info) Description 02/06/2021 Refill [facility] Medical Group - Family Medicine [facility] [address] [place] [phone] Fritz Crook MD #[address] [address] Medication Refill Social History Tobacco Use Types [...] st Contact Info) Description 07/05/2025 11:15 AM LINING CUTTER Office Visit [facility] Medical Group - Endocrinology [facility] [address]2 [place] [address] Fadi Bullard MD #[address] [address] documented as of this encounter Visit Diagnoses Diagnosis Anxiety and depression Dysthymic disorder documented in this encounter Additional Health Concerns Infection Onset Date Last Indicated Resolved Time COVID - 19 06/18/2021 06/18/2021 07/08/2021 12:1 6 AM LINING CUTTER COVID - 19 Confirmed 06/18/2021 06/18/2021 022 12:16 AM LINING CUTTER Assessment Noted Time PHQ-9 Depression Total Score: 5 07/25/19 21 4:00 PM LINING CUTTER documented as of this encounter Care Teams Comparison Shopper Relationship Specialty Start Date End Date Fritz Crook MD #2 [facility] [address] [place] [address] PCP - General Family Medicine 05/08/15 04/05/22 Fritz Crook MD #2 [facility] [address] [place] [address] PCP - General Primary Care 12/10/22 08/08/24 Marzena Gomes APRN, COLLISION WORKER 2 [facility] [address] [place] [address] PCP - General Advanced Practice Nurse 12/07/24 Fadi Bullard MD #2 [facility] [address] [place] [address] Consulting Physician Internal Medicine 01/08/16 5 Harini Heath APRN, COLLISION WORKER 2 [facility] [address] [place] [address] Certified Nurse Practitioner 06/24/16 documented as of this encounter
--- OUTSIDE RECORDS SUMMARY | 2025-05-16 15:27 | XMS_ITS | Encounter Summary ---
Author Organization [facility] Address [address] [place] [address] Phone Care Team Providers Care Clinical Informatics Strategist Name Role Phone Fadi Bullard MD Unavailable Harini Heath APRN, NOTCHING MACHINE OPERATOR Unavailable [phone] Fritz Crook MD Primary Care Provider [phone] Marzena Gomes LAW EXAMINER, [facility] Primary Care Provider Reason for Visit * Reason Comments Medication Refill Encounter Details Date Type Department Care Team (Late st Contact Info) Description 04/22/2023 Refill [facility] Medical Group - Family Medicine [facility] [address] [place] [phone] Fritz Crook MD #[address] [address] Medication Refill Social History Tobacco Use Types [...] st Contact Info) Description 07/05/2025 11:15 AM PERINATAL INSTRUCTOR Office Visit [facility] - [place] #2 [place] [address] Fadi Bullard MD #2 [facility] [address] [place] [address] documented as of this encounter Visit Diagnoses Not on filedocumented in this encounter Additional Health Concerns Assessment Noted Time PHQ-9 Depression Total Score: 5 07/25/19 21 4:00 PM PERINATAL INSTRUCTOR documented as of this encounter Care Teams Clinical Informatics Strategist Relationship Specialty Start Date End Date Fritz Crook MD #[address] [address] PCP - General Primary Care 12/10/22 08/08/24 Marzena Gomes APRN, NOTCHING MACHINE OPERATOR #[address] [address] PCP - General Advanced Practice Nurse 12/07/24 Fadi Bullard MD #[address] [address] Consulting Physician Internal Medicine 01/08/16 5 Harini Heath APRN, NOTCHING MACHINE OPERATOR 2 [facility] [address] [place] [address] Certified Nurse Practitioner 06/24/16 documented as of this encounter
--- OUTSIDE RECORDS SUMMARY | 2025-05-16 15:27 | XMS_ITS | Encounter Summary ---
Author Organization [facility] Address [address] [place] [address] Phone Care Team Providers Care Estimator Paperboard Boxes Name Role Phone Fritz Crook MD Primary Care Provider [phone] Fadi Bullard MD Unavailable Harini Heath APRN, SPOUT LINER Unavailable [phone] Fritz Crook MD Primary Care Provider [phone] Marzena Gomes APRN, [facility] Primary Care Provider Reason for Visit * Reason Comments Medication Refill Encounter Details Date Type Department Care Team (Late st Contact Info) Description 03/01/2021 Refill [facility] Medical Group - Family Medicine [facility] #2 [place] [phone] Fritz Crook MD #[address] [address] Medication Refill Social History Tobacco Use Types [...] st Contact Info) Description 07/05/2025 11:15 AM ASSEMBLIES AND INSTALLATIONS INSPECTOR Office Visit [facility] #[address] [place] [address] Fadi Bullard MD #[address] [address] documented as of this encounter Visit Diagnoses Diagnosis Anxiety and depression Dysthymic disorder documented in this encounter Additional Health Concerns Infection Onset Date Last Indicated Resolved Time COVID - 19 06/18/2021 06/18/2021 07/08/2021 12:1 6 AM ASSEMBLIES AND INSTALLATIONS INSPECTOR COVID - 19 Confirmed 06/18/2021 06/18/2021 022 12:16 AM ASSEMBLIES AND INSTALLATIONS INSPECTOR Assessment Noted Time PHQ-9 Depression Total Score: 5 07/25/19 21 4:00 PM ASSEMBLIES AND INSTALLATIONS INSPECTOR documented as of this encounter Care Teams Estimator Paperboard Boxes Relationship Specialty Start Date End Date Fritz Crook MD #2 [facility] [address] [place] [address] PCP - General Family Medicine 05/08/15 04/05/22 Fritz Crook MD #2 [facility] [address] [place] [address] PCP - General Primary Care 12/10/22 08/08/24 Marzena Gomes APRN, SPOUT LINER 2 [facility] [address] [place] [address] PCP - General Advanced Practice Nurse 12/07/24 Fadi Bullard MD #2 [facility] [address] [place] [address] Consulting Physician Internal Medicine 01/08/16 Harini Curran APRN, SPOUT LINER 2 [facility] [address] [place] [address] Certified Nurse Practitioner 06/24/16 documented as of this encounter
--- OUTSIDE RECORDS SUMMARY | 2025-05-16 15:27 | XMS_ITS | Clinical Summary ---
Author Organization [facility] Address [address] [place] [address] [place] [address] Care Team Providers Care Parts Salvager Name Role Phone Fritz Crook MD Primary Care Provider [phone] Source Comments [facility],non-owned Affiliates and Associated Physician Practices is amultiple site organization consisting of ambulatory clinics and hospital sitesin [place], [place], [place] and [place]. This disclosure is being madepursuant to the Care Everywhere program and may not contain all information available regarding this patient. 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 Care Teams Parts Salvager Relationship Specialty Start Date End Date Fritz Crook MD PCP - General 12/03/17
--- OUTSIDE RECORDS SUMMARY | 2025-05-16 15:27 | XMS_ITS | Encounter Summary ---
Author Organization [facility] Address [address] [place] [address] Phone Care Team Providers Care Fisher Lobster Name Role Phone Fritz Crook MD Primary Care Provider [phone] Fadi Bullard MD Unavailable Harini Heath APRN, [facility] Unavailable [phone] Fritz Crook MD Primary Care Provider [phone] Marzena Gomes APRN, [facility] Primary Care Provider Reason for Visit * Reason Comments Medication Refill Encounter Details Date Type Department Care Team (Late st Contact Info) Description 05/31/2020 Refill [facility] - Family Medicine [facility] [address]2 [place] [address] Fritz Crook MD #[address] [address] Medication Refill Social History Tobacco Use Types [...] 05/31/2020 4:19 PM CST Prescription pending signature EE PLANTATION WORKER * Telephone Encounter - Suzan Ballard RN [...] Outpatient Visits 3 months ago Essential hypertension [facility] Fritz Durbin MD 7 months ago Essential hypertension [facility] Fritz Durbin MD 11 months ago Type 2 diabetes mellitus without complication, with long-term current use of insulin (FORM[facility]LY [facility]) [facility] Fritz Pickett MD 1 year ago Anxiety [facility] Fritz Durbin MD 1 year ago Essential hypertension [facility] Fritz Durbin MD Upcoming Appointments Future Appointments In 2 weeks [facility], [facility], [facility] In 2 weeks Fritz Crook MD [facility] HEATING EQUIPMENT INSTALL[facility] - Recent and Past Visits Recent Visits Date Type Provider Dept 02/17/20 Office Visit Fritz Crook MD [facility] 10/05/19 Telemedicine Fritz Crook MD [facility] 07/04/19 Office Visit Fritz [facility] Showing recent visits within past 460 days with a meds authorizing provider and meeting all other requirements Future Appointments Date Type Provider Dept 06/20/20 Appointment [facility] Show[facility] future appointments within next 90 days with a meds authorizing provider and meeting all other requirements EE PLANTATION WORKER documented in this encounter Plan of Treatment Upcoming Encounters Date Type Department Care Team (Late st Contact Info) Description 07/05/2025 11:15 AM COFFEE PLANTATION WORKER Office Visit [facility] - Endocrinology - [place] #2 [place] [address] Fadi Bullard MD #[address] [address] documented as of this encounter Visit Diagnoses Diagnosis Anxiety and depression Dysthymic disorder documented in this encounter Additional Health Concerns Infection Onset Date Last Indicated Resolved Time COVID - 19 06/18/2021 06/18/2021 07/08/2021 12:1 6 AM COFFEE PLANTATION WORKER COVID - 19 Confirmed 06/18/2021 06/18/2021 022 12:16 AM COFFEE PLANTATION WORKER Assessment Noted Time PHQ-9 Depression Total Score: 0 07/04/19 20 8:10 AM COFFEE PLANTATION WORKER documented as of this encounter Care Teams Fisher Lobster Relationship Specialty Start Date End Date Fritz Crook MD #2 [facility] [address] [place] [address] PCP - General Family Medicine 05/08/15 04/05/22 Fritz Crook MD #[address] [address] PCP - General Primary Care 12/10/22 08/08/24 Marzena Gomes APRN, OPERATIONS RESEARCH MANAGER 2 [facility] [address] [place] [address] PCP - General Advanced Practice Nurse 12/07/24 Fadi Bullard MD #2 [facility] [address] [place] [address] Consulting Physician Internal Medicine 01/08/16 5 Harini Heath APRN, OPERATIONS RESEARCH MANAGER 2 [facility] [address] [place] [address] Certified Nurse Practitioner 06/24/16 documented as of this encounter
--- OUTSIDE RECORDS SUMMARY | 2025-05-16 15:27 | XMS_ITS | Clinical Summary ---
Author Organization [facility] Address [address] [facility], [place] [address] Phone Care Team Providers Care Retail Merchandiser Name Role Phone Pass, Hariniparam Rojo APRN, SENIOR TECHNICAL SPECIALIST Unavailable [phone] Marzena Gomes MAIL HANDLER, SENIOR TECHNICAL SPECIALIST Primary Care Provider Allergies No known active allergies Medications Insulin Pen Needle (Pen [place]) 32G X 4 MM MiscIndications :Type 2 [...] 6 Each 3 5 Active Continuous Glucose Claims Assistant (FreeStyle Darya 3 [place]) DeviceIndicatio ns:Type 2 diabetes mellitus with other [...] 04/13/2025 Travel 04/07/2025 Transcribe Orders [facility] Central Scheduling [address] [place] [address] Marzena Gomes, MAIL HANDLER, SENIOR TECHNICAL SPECIALIST Low back pain, unspecified back pain laterality, [...] st Contact Info) Description 07/05/2025 11:15 AM DIGITAL ACCOUNT SUPERVISOR Office Visit [facility] - Endocrinology - [place] [address] [place] [address] Fadi Bullard MD [address] [phone] Health Maintenance Due Date Last Done Comments [...] 03/03/2022 1 2:00 AM CDT PATHOLOGY CYTOLOGY ELEMENTARY SCHOOL REGISTRAR Routine 02/03/2018 HEPATITIS C ANTIBODY Routine 08/01/2015 8:56 AM DIGITAL ACCOUNT SUPERVISOR Employee exposure to body fluids from Last 3 Months or Most Recently Relevant to Health Maintenance Results * (ABNORMAL) POCT GLYCOSYLATED HEMOGLOBIN (12/07/2024 2:49 PM CDT) Pathologist [facility] HGB-A1C 10.3(A) 4 - 6 % Blood [...] DERABLES Final Result SCAN * PATHOLOGY CYTOLOGY ELEMENTARY SCHOOL REGISTRAR (02/03/2018) Specimen of unknown material (specimen) us Alma Delia Hernandez APRN, CNP PATHOLOGY/CYTOLOGY ORDERA BLES Final Result * HEPATITIS C ANTIBODY (08/01/2015 8:56 AM DIGITAL ACCOUNT SUPERVISOR) Pathologist [facility] hepatitis C antibody 0.12 <1 S/CO 08/01/2015 10:10 PM DIGITAL ACCOUNT SUPERVISOR [facility] Comment: Signal/Cutoff ratio < 0.79 is Nondetected Signal/Cutoff ratio 0.80-0.99 is Grayzone Signal/Cutoff ratio > 0.99 is Detected Supplemental assays are recommended if signal/cutoff ratio is >/=1.00. Signal/cutoff ratio result >/= 5.00 is 97% predictive of positivity for recombinant immunoblot assay (RIBA) and will be reported to the [place] Department of Public Health as required. Blood specimen (specimen) Arterial Line / Unknown 08/01/2015 8:56 AM DIGITAL ACCOUNT SUPERVISOR 08/01/2015 11:26 AM DIGITAL ACCOUNT SUPERVISOR us Jesse Greene MD CHEMISTRY ORDERABLES Final R esult [facility] [address] [place] [address] from Last 3 Months or Most Recently Relevant to Health Maintenance Insurance [employer] Care Teams Retail Merchandiser Relationship Specialty Start Date End Date Marzena Gomes, MAIL HANDLER, SENIOR TECHNICAL SPECIALIST 2 [facility] [address] [place] [address] PCP - General Advanced Practice Nurse 12/07/24 Harini Heath APRN, SENIOR TECHNICAL SPECIALIST 2 [facility] [address] [place] [address] Certified Nurse Practitioner 06/24/16
--- OUTSIDE RECORDS SUMMARY | 2025-05-16 15:27 | XMS_ITS | Encounter Summary ---
Author Organization [facility] Address [address] [place] [address] Phone Care Team Providers Care Enforcement Officer Name Role Phone Fadi Bullard MD Unavailable Harini Heath APRN, WINE CONSULTANT Unavailable [phone] Fritz Crook MD Primary Care Provider [phone] Marzena Gomes PRODUCTION PACKAGER, [facility] Primary Care Provider Reason for Visit * Reason Comments Medication Refill Encounter Details Date Type Department Care Team (Late st Contact Info) Description 04/10/2023 Refill [facility] Group - Endocrinology - [place] #2 [place] [address] Fadi Bullard MD #[address] [address] Medication Refill Social History Tobacco [...] st Contact Info) Description 07/05/2025 11:15 AM CLASSIFICATION CLERK Office Visit [facility] - Endocrinology - [place] #2 [place] [address] Fadi Bullard MD #[address] [address] documented as of this encounter Visit Diagnoses Not on filedocumented in this encounter Additional Health Concerns Assessment Noted Time PHQ-9 Depression Total Score: 5 07/25/19 21 4:00 PM CLASSIFICATION CLERK documented as of this encounter Care Teams Enforcement Officer Relationship Specialty Start Date End Date Fritz Crook MD #[address] [address] PCP - General Primary Care 12/10/22 08/08/24 Marzena Gomes APRN, WINE CONSULTANT #[address] [address] PCP - General Advanced Practice Nurse 12/07/24 Fadi Bullard MD #[address] [address] Consulting Physician Internal Medicine 01/08/16 5 Harini Heath APRN, WINE CONSULTANT 2 [facility] [address] [place] [address] Certified Nurse Practitioner 06/24/16 documented as of this encounter
--- OUTSIDE RECORDS SUMMARY | 2025-05-16 15:27 | XMS_ITS | Encounter Summary ---
Author Organization [facility] Address [address] [place] [address] Phone Care Team Providers Care Public Accountant Name Role Phone Fadi Bullard MD Unavailable Harini Heath APRN, OPTICAL GOODS WORKER Unavailable [phone] Fritz Crook MD Primary Care Provider [phone] Marzena Gomes PULLER OUT, [facility] Primary Care Provider Reason for Visit * Reason Comments Medication Refill Encounter Details Date Type Department Care Team (Late st Contact Info) Description 09/14/[address] [facility] Medical Group - Endocrinology - [place] #2 [place] [address] Fadi Bullard MD #[address] [address] Medication Refill Social History Tobacco [...] st Contact Info) Description 07/05/2025 11:15 AM HOSPITAL TELEVISION RENTAL CLERK Office Visit [facility] - Endocrinology - [place] #2 [place] [address] Fadi Bullard MD #[address] [address] documented as of this encounter Visit Diagnoses Not on filedocumented in this encounter Additional Health Concerns Assessment Noted Time PHQ-9 Depression Total Score: 5 07/25/19 21 4:00 PM HOSPITAL TELEVISION RENTAL CLERK documented as of this encounter Care Teams Public Accountant Relationship Specialty Start Date End Date Fritz Crook MD #[address] [address] PCP - General Primary Care 12/10/22 08/08/24 Marzena Gomes APRN, OPTICAL GOODS WORKER #[address] [address] PCP - General Advanced Practice Nurse 12/07/24 Fadi Bullard MD #[address] [address] Consulting Physician Internal Medicine 01/08/16 5 Harini Heath APRN, OPTICAL GOODS WORKER 2 [facility] [address] [place] [address] Certified Nurse Practitioner 06/24/16 documented as of this encounter
--- OUTSIDE RECORDS SUMMARY | 2025-05-16 15:27 | XMS_ITS | Clinical Summary ---
Author Organization [facility] Address [address] [place] [address] Care Team Providers Care Search Engine Optimization Strategist Name Role Phone Marzena Gomes BARREL RIFLER Primary Care Provider Allergies Active Allergy Reactions [...] 5/16 needle Active blood-glucose meter,continuous (Dexcom G6 County Manager) misc USE DIRECTED BY OFFICE Active NAPROXEN, [...] 05/25/2020 Assessment & Plan (05/25/2020 11:26 AM BUSINESS MANAGER): Patient's carotid disease was mild and probably only needs every 2-3 year follow-up with ultrasound. 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 Assessment & Plan (06/03/2019 4:02 AM BUSINESS MANAGER): Concerning for cardiac etiology. Patient has risk factors including uncontrolled diabetes, hypertension, hyperlipidemia, obesity and tobacco use. Patient's grandparents also had MIs. Troponins negative x4. Will order a stress test. Cardiology was consulted. P.r.n. Nitroglycerin which seems to help patient's pain. Uncontrolled type 2 diabetes mellitus with hyper glycemia 06/03/2019 Assessment & Plan (06/03/2019 4:05 AM BUSINESS MANAGER): Secondary to noncompliance. Patient is supposed to [...] 06/03/2019 Assessment & Plan (06/03/2019 4:04 AM BUSINESS MANAGER): Pressures are under control. Will continue metoprolol with hold parameters. Will hold lisinopril and hydrochlorothiazide for now as I suspect patient may be dehydrated due to hyperglycemia and will be receiving IV fluids. Will continue to monitor. Mixed hyperlipidemia 06/03/2019 Assessment & Plan (06/03/2019 4:00 AM BUSINESS MANAGER): Continue Lipitor Class 2 obesity in adult 06/03/2019 Lactic acidosis 06/03/2019 Assessment & Plan (06/03/2019 4:14 AM BUSINESS MANAGER): Suspect this is from dehydration from hyperglycemia. Currently resolved. Class 3 severe obesity due t o excess calories with serious comorbidity and body mass index (BMI) of 40.0 to 44.9 in adult 02/07/2019 Right upper quadrant abdominal pain 07/14/2018 Neck pain 04/07/2018 Diabetic ketoacidosis with c francisco associated with type 1 diabetes mellitus 07/12/2017 Assessment & Plan (07/12/2017 8:31 PM BUSINESS MANAGER): The patient is type 1 diabetic follows [...] 07/12/2017 Assessment & Plan (07/12/2017 8:32 PM BUSINESS MANAGER): In the setting of diabetes probably Marlena vaginitis. Post started already on fluconazole. She continues having significant itching also will treat with a topical miconazole vaginally. Metabolic acidosis 07/12/2017 Assessment & Plan (07/12/2017 8:35 PM BUSINESS MANAGER): Likely multifactorial possible UTI in the setting [...] 07/12/2017 Assessment & Plan (07/12/2017 8:56 PM BUSINESS MANAGER): The so far not identified source of [...] 07/12/2017 Assessment & Plan (07/12/2017 8:55 PM BUSINESS MANAGER): New onset diarrhea , no previous history of chronic diarrhea . Patient denies any recent antibiotic use. No recent hospitalizations. Possibly infectious will check stool studies, will get flu swab Hyperkalemia 07/12/2017 Assessment & Plan (07/12/2017 8:55 PM BUSINESS MANAGER): In the setting or diabetic ketoacidosis. Likely due to elevated blood sugars. Correct underlying cause monitor with BMP every 2 hr and replace as needed per hypokalemia protocol Dehydration 07/12/2017 Assessment & Plan (07/12/2017 8:54 PM BUSINESS MANAGER): Multifactorial due to uncontrolled type 1 diabetes with DKA possible UTI and diarrhea. IV fluids strict I&Os correct underlying causes Sepsis 07/12/2017 Overview (07/12/2017): Assessment & Plan (07/12/2017 9:03 PM BUSINESS MANAGER): Patient meets the criteria for sepsis with [...] Chest pain Hyperlipidemia Nonocclusive coronary atherosclerosis of lummi coronary artery 07/19/2019 Bilateral carotid artery stenosis [...] on file Legal Sex Female 4:49 PM BUSINESS MANAGER Gender Identity Not on file Sexual Orientation Not on file Last Filed Vital Signs Vital Sign Reading Time Taken Comments Blood Pressure 132/62 07/19/2024 4:08 PM BUSINESS MANAGER Pulse 63 06/29/2024 2:45 PM BUSINESS MANAGER Temperature 36.6 C (97.9 F) 04/25/2024 4:51 PM BUSINESS MANAGER Respiratory Rate 18 04/25/2024 9:45 PM BUSINESS MANAGER Oxygen Saturation 97% 04/25/2024 9:45 PM BUSINESS MANAGER Inhaled Oxygen Concentration - - Weight 108.7 kg (239 lb 11.2 oz) 07/19/2024 4:08 PM BUSINESS MANAGER Height 165.1 cm (5' 5) 07/19/2024 4:08 PM BUSINESS MANAGER Body Mass Index 39.89 07/19/2024 4:08 PM BUSINESS MANAGER Plan of Treatment Health Maintenance Due Date [...] 05/22, 07/12/2017 Medical Devices Implanted Type Area Conductor/Engineer Device Identifier Shelf Expiration Date Model / Serial / Lot [employer] [place] [employer] [id number] Angio-Seal Evolution 6fr .035in Guidewire Bypass Tube Suture - [id number] Implanted:Qty: 1 on 06/03/2019 by Neeraj Alvarado MD at [facility] Other - see comments [employer] [place] [employer] 01/20/2020 [id number] / / [id number] Procedures Procedure Name Priority Date/Time Associated Diagnosis Comments POCT HEMOGLOBIN A1C Routine 07/19/2024 4 :15 PM BUSINESS MANAGER Type 2 diabetes mellitus with hyperglycemia, with long-term current use of insulin (HCC) EGFR STAT 04/25/2024 5:09 PM BUSINESS MANAGER RETINAVUE SCANNER - OU - BOTH EYES Routine 04/18/2024 Type 2 diabetes mellitus with hyperglycemia, with long-term current use of insulin (HCC) LIPID PANEL Routine 06/03/2019 1:25 AM BUSINESS MANAGER TSH STAT 06/02/2019 4:14 PM BUSINESS MANAGER from Last 3 Months or Most Recently Relevant to Health Maintenance Results * (ABNORMAL) POCT hemoglobin A1c (07/19/2024 4:15 PM BUSINESS MANAGER) Hemoglobin A1C, POC 10.2 4.0 - 5.6 % Blood 07/19/2024 4:15 PM BUSINESS MANAGER us Екатерина Doran DO POINT OF CARE TEST ORDERABL ES Final Result * eGFR (04/25/2024 5:09 PM BUSINESS MANAGER) eGFR >90 >=60 mL/min/1. 73 m2 Comment: [...] last reviewed 2021. Blood 04/25/2024 5:09 PM BUSINESS MANAGER 04/25/2024 5:13 PM BUSINESS MANAGER us Maritza Murphy MD LAB BLOOD ORDERABLE S Final Result [facility] ([place]) 1 [facility] Department [place] [address] * RetinaVue Scanner - OU - Both Eyes (04/18/2024) Anatomical Region Laterality Modality Head Fundus Photograp hy 04/18/2024 us Екатерина Doran DO OPHTH PHOTOGRAPHY Final Res ult * (ABNORMAL) Lipid panel (06/03/2019 1:25 AM BUSINESS MANAGER) Cholesterol 137 30 - 199 mg/dL LONG [...] ([place]) Blood specimen (specimen) 06/03/2019 1:25 AM BUSINESS MANAGER 06/03/2019 1:27 AM BUSINESS MANAGER us Maritza Murphy MD LAB BLOOD ORDERABLE S Final Result [facility] ([place]) 1 [facility] Department [place] [address] * TSH (06/02/2019 4:14 PM BUSINESS MANAGER) Thyroid Stimulating Hormone 3.32 0.30 - 4.20 mcIUnit/mL [facility] ([place]) Blood specimen (specimen) 06/02/2019 4:14 PM BUSINESS MANAGER 06/02/2019 4:27 PM BUSINESS MANAGER us Maritza Murphy MD LAB BLOOD ORDERABLE S Final Result [facility] ([place]) 1 [facility] Department [place] [address] from Last 3 Months or Most Recently Relevant to Health Maintenance Insurance [facility] Advance Directives For more information, please contact: [phone] * Full Code (Latest Code Status on File) Date Activated Date Inactivated Comments 06/02/2019 8:32 PM 06/03/2019 10:19 PM * Full Code Date Activated Date Inactivated Comments 07/12/2017 7:52 PM 07/16/2017 3:59 PM * Full Code Date Activated Date Inactivated Comments 07/12/2017 11:40 AM 07/12/2017 7:52 PM Care Teams Search Engine Optimization Strategist Relationship Specialty Start Date End Date Marzena Gomes NP PCP - General Nurse Practitioner 04/25/24
--- OUTSIDE RECORDS SUMMARY | 2025-05-16 15:27 | XMS_ITS | Encounter Summary ---
Author Organization [facility] Address [address] [place] [address] Phone Care Team Providers Care Bag Presser Name Role Phone Fadi Bullard MD Unavailable Harini Heath APRN, ORAL PATHOLOGIST Unavailable [phone] Fritz Crook MD Primary Care Provider Marzena Gomes PHYSICAL MEDICINE PHYSICIAN, [facility] Primary Care Provider Reason for Visit * Reason Comments Medication Refill Encounter Details Date Type Department Care Team (Late st Contact Info) Description 12/16/2022 Refill [facility] - Family Medicine [facility] #2 [place] [phone] Fritz Crook MD #[address] [address] Medication Refill Social History Tobacco Use Types [...] st Contact Info) Description 07/05/2025 11:15 AM PROGRAM FACILITATOR [facility] - [place] #2 [place] [address] Fadi Bullard MD #2 [facility] [address] [place] [address] documented as of this encounter Visit Diagnoses Not on filedocumented in this encounter Additional Health Concerns Assessment Noted Time PHQ-9 Depression Total Score: 5 07/25/19 21 4:00 PM PROGRAM FACILITATOR documented as of this encounter Care Teams Bag Presser Relationship Specialty Start Date End Date Fritz Crook MD #[address] [address] PCP - General Primary Care 12/10/22 08/08/24 Marzena Gomes APRN, ORAL PATHOLOGIST #[address] [address] PCP - General Advanced Practice Nurse 12/07/24 Fadi Bullard MD #[address] [address] Consulting Physician Internal Medicine 01/08/16 5 Harini Heath APRN, ORAL PATHOLOGIST 2 [facility] [address] [place] [address] Certified Nurse Practitioner 06/24/16 documented as of this encounter
--- OUTSIDE RECORDS SUMMARY | 2025-05-16 15:27 | XMS_ITS | Encounter Summary ---
Author Organization [facility] Address [address] [place] [address] Phone Care Team Providers Care Iron Assorter Name Role Phone Fadi Bullard MD Unavailable Harini Heath APRN, RETAIL CUSTODIAL ASSOCIATE Unavailable [phone] Fritz Crook MD Primary Care Provider [phone] Marzena Gomes HIGH SCHOOL SCIENCE TUTOR, [facility] Primary Care Provider Reason for Visit * Reason Comments Medication Refill Encounter Details Date Type Department Care Team (Late st Contact Info) Description 12/22/[address] [facility] Medical Group - Endocrinology - [place] #2 [place] [address] Fadi Bullard MD #[address] [address] Medication Refill Social History Tobacco [...] st Contact Info) Description 07/05/2025 11:15 AM ARBORIST Office Visit [facility] - [facility]ology - [place] #2 [place] [address] Fadi Bullard MD #[address] [address] documented as of this encounter Visit Diagnoses Not on filedocumented in this encounter Additional Health Concerns Assessment Noted Time PHQ-9 Depression Total Score: 5 07/25/19 21 4:00 PM ARBORIST documented as of this encounter Care Teams Iron Assorter Relationship Specialty Start Date End Date Fritz Crook MD #[address] [address] PCP - General Primary Care 12/10/22 08/08/24 Marzena Gomes APRN, RETAIL CUSTODIAL ASSOCIATE #[address] [address] PCP - General Advanced Practice Nurse 12/07/24 Fadi Bullard MD #[address] [address] Consulting Physician Internal Medicine 01/08/16 Harini Curran APRN, RETAIL CUSTODIAL ASSOCIATE 2 [facility] [address] [place] [address] Certified Nurse Practitioner 06/24/16 documented as of this encounter
--- OUTSIDE RECORDS SUMMARY | 2025-05-16 15:27 | XMS_ITS | Encounter Summary ---
Author Organization [facility] Address [address] [place] [address] Phone Care Team Providers Care Pierce And Shave Press Operator Name Role Phone Fritz Crook MD Primary Care Provider [phone] Fadi Bullard MD Unavailable Harini Heath APRN, [facility] Unavailable [phone] Fritz Crook MD Primary Care Provider [phone] Marzena Gomes GAS APPLIANCE INSTALLER, [facility] Primary Care Provider Reason for Visit * Reason Onset Date Comments Medication Refill 07/02/2020 Encounter Details Date Type Department Care Team (Late st Contact Info) Description 07/02/2020 [facility] [address] [place] [id number] Fritz Crook MD [address] [address] Medication Refill Social History Tobacco Use Types [...] lab visit is 07/06/20 - OV 07/11/20 ROOM PICKER * Telephone Encounter - Suzan Ballard RN - 07/03/2020 10:43 AM CST OV 07/06/20 ROOM PICKER * Telephone Encounter - Suzan Ballard RN [...] Outpatient Visits 4 months ago Essential hypertension [facility] Fritz Durbin MD 9 months ago Essential hypertension [facility] Fritz Durbin MD 1 year ago Type 2 diabetes mellitus without complication, with long-term current use of insulin (HCC) [facility] Fritz Pickett MD 1 year ago Anxiety [facility] Fritz Durbin MD 1 year ago Essential hypertension [facility] Fritz Durbin MD Upcoming Appointments Future Appointments In 3 days [facility], [facility] In 3 days Fadi Bullard MD [facility] Arrive at: Virtual Visit In 1 week Fritz Crook MD [facility] BUFFING MACHINE OPERATOR SEMIAUTOMATIC - Recent and Past Visits Recent Visits [...] Outpatient Visits 4 months ago Essential hypertension [facility] Fritz Durbin MD 9 months ago Essential hypertension [facility] Fritz Durbin MD 1 year ago Type 2 diabetes mellitus without complication, with long-term current use of insulin (HCC) [facility] Fritz Durbin MD 1 year ago Anxiety [facility] Fritz Durbin MD 1 year ago [facility]coming Appointments Future Appointments In 3 days [facility]YSICIAN GROUP [facility], [facility] In 3 days Fadi Bullard MD [facility] Endocrinology [facility] Arrive at: Virtual Visit In 1 week Fritz Cro[facility] MD [facility] BUFFING MACHINE OPERATOR SEMIAUTOMATIC - Recent and Past Visits Recent Visits Date Type Provider Dept 02/17/20 Office Visit Fritz Crook MD [facility] 10/05/19 Telemedicine Fritz Crook MD [facility] 07/04/19 Office Visit Fritz Crook MD [facility] Showing recent visits within past 460 days with a meds authorizing provider and meeting all other requirements Future Appointments Date Type Provider Dept 07/11/20 Appointment Fritz Crook MD [facility] Showing future appointments within next 90 days with a meds authorizing provider and meeting all other requirements ROOM PICKER * Telephone Encounter - Erika Dawn - [...] scripts) 30 Pharmacy preference for this medication: [id number] [facility] Outcome: [x]Medication pended, routed to surescripts []Medication refused []Informed caller of refills at pharmacy []Additional message to medication management RN []Verbal authorization for written order to pharmacy []Additional message to provider []Verified medication with pharmacy Erika Medication Management ROOM PICKER documented in this encounter Plan of Treatment Upcoming Encounters Date Type Department Care Team (Late st Contact Info) Description 07/05/2025 11:15 AM MUSHROOM PICKER Office Visit [facility] - Endocrinology - [place] [address] [place] [address] Fadi Bullard MD [address] [address] documented as of this encounter Visit Diagnoses Diagnosis Anxiety and depression Dysthymic disorder documented in this encounter Additional Health Concerns Infection Onset Date Last Indicated Resolved Time COVID - 19 06/18/2021 06/18/2021 07/08/2021 12:1 6 AM MUSHROOM PICKER COVID - 19 Confirmed 06/18/2021 06/18/2021 022 12:16 AM MUSHROOM PICKER Assessment Noted Time PHQ-9 Depression Total Score: 0 07/04/19 20 8:10 AM MUSHROOM PICKER documented as of this encounter Care Teams Pierce And Shave Press Operator Relationship Specialty Start Date End Date Fritz Crook MD #2 [facility] [address] [place] [address] PCP - General Family Medicine 05/08/15 04/05/22 Fritz Crook MD #2 [facility] [address] [place] [address] PCP - General Primary Care 12/10/22 08/08/24 Marzena Gomes APRN, VOCATIONAL TRAINING DIRECTOR 2 [facility] [address] [place] [address] PCP - General Advanced Practice Nurse 12/07/24 Fadi Bullard MD #2 [facility] [address] [place] [address] Consulting Physician Internal Medicine 01/08/16 Harini Curran APRN, VOCATIONAL TRAINING DIRECTOR 2 [facility] [address] [place] [address] Certified Nurse Practitioner 06/24/16 documented as of this encounter
--- OUTSIDE RECORDS SUMMARY | 2025-05-16 15:27 | XMS_ITS | Encounter Summary ---
Author Organization [facility] Address [address] [place] [address] Phone Care Team Providers Care Roller Die Cutting Machine Operator Name Role Phone Fadi Bullard MD Unavailable Harini Heath APRN, [facility] Unavailable [phone] Fritz Crook MD Primary Care Provider [phone] Marzena Gomes BINDER OPERATOR, [facility] Primary Care Provider Reason for Visit * Reason Comments Medication Refill Encounter Details Date Type Department Care Team (Late st Contact Info) Description 07/02/2022 Refill [facility] Medical Group - Family Medicine [facility] [address] [place] [phone] Fritz Crook MD #[address] [address] Medication Refill Social History Tobacco Use Types [...] st Contact Info) Description 07/05/2025 11:15 AM SOLAR ENERGY ADVISOR [facility] - [place] [address] [place] [address] Fadi Bullard MD #2 [facility] [address] [place] [address] documented as of this encounter Visit Diagnoses Not on filedocumented in this encounter Additional Health Concerns Assessment Noted Time PHQ-9 Depression Total Score: 5 07/25/19 21 4:00 PM SOLAR ENERGY ADVISOR documented as of this encounter Care Teams Roller Die Cutting Machine Operator Relationship Specialty Start Date End Date Fritz Crook MD #[address] [address] PCP - General Primary Care 12/10/22 08/08/24 Marzena Gomes APRN, SEAM STAYER #[address] [address] PCP - General Advanced Practice Nurse 12/07/24 Fadi Bullard MD #[address] [address] Consulting Physician Internal Medicine 01/08/16 5 Harini Heath APRN, SEAM STAYER 2 [facility] [address] [place] [address] Certified Nurse Practitioner 06/24/16 documented as of this encounter
[2025-05-16] MEDS: MECLIZINE HCL 25 MG TABLET PO (15:46)
[2025-05-16 15:47] VITALS: BP 120/68; PULSE 68
[2025-05-16 15:47] LABS: Free T4 Free Thyroxine Reflex 1.21 ng/dL (0.78-2.19)
[2025-05-16 15:49] VITALS: BP 135/68; PULSE 64
[2025-05-16 15:50] VITALS: BP 131/76; PULSE 70
[2025-05-16 16:28] LABS: Total Triiodothyronine (T3) 1.09 NG/ML (0.82-1.58)
[2025-05-16 17:32] VITALS: BP 129/70; PULSE 70; RESP 17; O2SAT 100
== END 2025-05-16 17:34 | disposition home or self-care (01) ==
PROVIDERS: Emergency Provider Emergency Medicine; PCP Nurse Practitioner Family
DX: R00.1 Bradycardia, unspecified (principal); R42 Dizziness and giddiness; E03.9 Hypothyroidism, unspecified; E78.5 Hyperlipidemia, unspecified; I10 Essential (primary) hypertension; E11.9 Type 2 diabetes mellitus without complications; Z79.4 Long term (current) use of insulin
CPT/HCPCS: 36415; 70450; 80053; 83735; 84439; 84443; 84480; 85025; 85610; 85730; 93005; 99284; A9270

== ENCOUNTER 2025-05-17 14:16 | Outpatient (CLI) | payer OTHER, SELFPAY ==
--- NOTE | ~2025-05-17 | US_ITS ---
EXAMINATION: US carotid duplex BI DATE: 05/17/2025 14:57 INDICATION: Carotid bruit TECHNIQUE: Grayscale, color Doppler, and pulsed Doppler images of the cervical carotid arteries were obtained. The degree of vessel stenosis is placed in one of the following categories: normal, <50%, 50-69%, >=70% but less than near- occlusion, near-occlusion, or total occlusion. Note that percent stenosis relative to normal distal artery lumen diameter is indirectly measured from velocity measurements as described by Angel, et al. Radiology 2003; 229:340-346. Notes: Normal: Peak systolic velocity <125 centimeters/sec and no plaque <50%. Peak systolic velocity <125 (EDV <40; ICA/CCA PSV ratio <2.0; used these factors only a tandem lesions or low cardiac output or contralateral disease) 50-69 %: PSV 125-230 (EDV 40-100; ratio 2-4) >= 70% but less than near occlusion: PSV greater than 230 (EDV > 100; ratio> 4.0) Near Occlusion: PSV that is variable; markedly narrowed lumen Occlusion: Absent flow on color/spectral Doppler and no lumen on riley scale. COMPARISON: None. FINDINGS: RIGHT: The right common carotid artery (CCA) peak systolic velocity (PSV) is 74 cm/s. The right internal carotid artery (ICA) PSV is 95 cm/s. The right ICA end- diastolic velocity (EDV) is 29 cm/s. The right ICA/CCA PSV ratio is 1.3. The external carotid artery (ECA) PSV is 98 cm/s. There is antegrade flow in the right vertebral artery. LEFT: The left CCA PSV is 78 cm/s. The left ICA PSV is 82 cm/s. The left ICA EDV is 28 cm/s. The left ICA/CCA PSV ratio is 1.1. The ECA PSV is 93 cm/s. There is antegrade flow in the left vertebral artery. IMPRESSION: 1. Less than 50% stenosis in the right internal carotid artery by sonographic criteria. 2. Less than 50% stenosis in the left internal carotid artery by sonographic criteria. Reviewed, dictated and finalized at location O. ER BUNNY IMPRESSION: 1. Less than 50% stenosis in the right internal carotid artery by sonographic rocco peña. 2. Less than 50% stenosis in the left internal carotid artery by sonographic kenton colbert.
--- OUTSIDE RECORDS SUMMARY | 2025-05-17 14:20 | XMS_ITS | Clinical Summary ---
Author Organization [facility] Address [address] [place] [address] Care Team Providers Care Director Nurses' Registry Name Role Phone Marzena Gomes CHEMICAL PROCESSING SUPERVISOR Primary Care Provider Allergies Active Allergy Reactions [...] 5/16 needle Active blood-glucose meter,continuous (Dexcom G6 Fellmongering Machine Operator) misc USE DIRECTED BY OFFICE Active NAPROXEN, [...] 05/25/2020 Assessment & Plan (05/25/2020 11:26 AM DATA CENTER MANAGER): Patient's carotid disease was mild and probably only needs every 2-3 year follow-up with ultrasound. 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 Assessment & Plan (06/03/2019 4:02 AM DATA CENTER MANAGER): Concerning for cardiac etiology. Patient has risk factors including uncontrolled diabetes, hypertension, hyperlipidemia, obesity and tobacco use. Patient's grandparents also had MIs. Troponins negative x4. Will order a stress test. Cardiology was consulted. P.r.n. Nitroglycerin which seems to help patient's pain. Uncontrolled type 2 diabetes mellitus with hyper glycemia 06/03/2019 Assessment & Plan (06/03/2019 4:05 AM DATA CENTER MANAGER): Secondary to noncompliance. Patient is supposed [...] 06/03/2019 Assessment & Plan (06/03/2019 4:04 AM DATA CENTER MANAGER): Pressures are under control. Will continue metoprolol with hold parameters. Will hold lisinopril and hydrochlorothiazide for now as I suspect patient may be dehydrated due to hyperglycemia and will be receiving IV fluids. Will continue to monitor. Mixed hyperlipidemia 06/03/2019 Assessment & Plan (06/03/2019 4:00 AM DATA CENTER MANAGER): Continue Lipitor Class 2 obesity in adult 06/03/2019 Lactic acidosis 06/03/2019 Assessment & Plan (06/03/2019 4:14 AM DATA CENTER MANAGER): Suspect this is from dehydration from hyperglycemia. Currently resolved. Class 3 severe obesity due t o excess calories with serious comorbidity and body mass index (BMI) of 40.0 to 44.9 in adult 02/07/2019 Right upper quadrant abdominal pain 07/14/2018 Neck pain 04/07/2018 Diabetic ketoacidosis with c francisco associated with type 1 diabetes mellitus 07/12/2017 Assessment & Plan (07/12/2017 8:31 PM DATA CENTER MANAGER): The patient is type 1 diabetic [...] 07/12/2017 Assessment & Plan (07/12/2017 8:32 PM DATA CENTER MANAGER): In the setting of diabetes probably Marlena vaginitis. Post started already on fluconazole. She continues having significant itching also will treat with a topical miconazole vaginally. Metabolic acidosis 07/12/2017 Assessment & Plan (07/12/2017 8:35 PM DATA CENTER MANAGER): Likely multifactorial possible UTI in the [...] 07/12/2017 Assessment & Plan (07/12/2017 8:56 PM DATA CENTER MANAGER): The so far not identified source [...] 07/12/2017 Assessment & Plan (07/12/2017 8:55 PM DATA CENTER MANAGER): New onset diarrhea , no previous history of chronic diarrhea . Patient denies any recent antibiotic use. No recent hospitalizations. Possibly infectious will check stool studies, will get flu swab Hyperkalemia 07/12/2017 Assessment & Plan (07/12/2017 8:55 PM DATA CENTER MANAGER): In the setting or diabetic ketoacidosis. Likely due to elevated blood sugars. Correct underlying cause monitor with BMP every 2 hr and replace as needed per hypokalemia protocol Dehydration 07/12/2017 Assessment & Plan (07/12/2017 8:54 PM DATA CENTER MANAGER): Multifactorial due to uncontrolled type 1 diabetes with DKA possible UTI and diarrhea. 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 07/19/2019 Bilateral carotid artery stenosis [...] on file Legal Sex Female 4:49 PM DATA CENTER MANAGER Gender Identity Not on file Sexual Orientation Not on file Last Filed Vital Signs Vital Sign Reading Time Taken Comments Blood Pressure 132/62 07/19/2024 4:08 PM DATA CENTER MANAGER Pulse 63 06/29/2024 2:45 PM DATA CENTER MANAGER Temperature 36.6 C (97.9 F) 04/25/2024 4:51 PM DATA CENTER MANAGER Respiratory Rate 18 04/25/2024 9:45 PM DATA CENTER MANAGER Oxygen Saturation 97% 04/25/2024 9:45 PM DATA CENTER MANAGER Inhaled Oxygen Concentration - - Weight 108.7 kg (239 lb 11.2 oz) 07/19/2024 4:08 PM DATA CENTER MANAGER Height 165.1 cm (5' 5) 07/19/2024 4:08 PM DATA CENTER MANAGER Body Mass Index 39.89 07/19/2024 4:08 PM DATA CENTER MANAGER Plan of Treatment Health Maintenance Due [...] 05/22, 07/12/2017 Medical Devices Implanted Type Area Cardiovascular Or Nurse Device Identifier Shelf Expiration Date Model / Serial / Lot [employer] [id number] Angio-Seal Evolution 6fr .035in Guidewire Bypass Tube Suture - [id number] Implanted:Qty: 1 on 06/03/2019 by Neeraj Alvarado MD at [facility] Other - see comments [employer] 01/20/2020 [id number] / / [id number] Procedures Procedure Name Priority Date/Time Associated Diagnosis Comments POCT HEMOGLOBIN A1C Routine 07/19/2024 4 :15 PM DATA CENTER MANAGER Type 2 diabetes mellitus with hyperglycemia, with long-term current use of insulin (HCC) EGFR STAT 04/25/2024 5:09 PM DATA CENTER MANAGER RETINAVUE SCANNER - OU - BOTH EYES Routine 04/18/2024 Type 2 diabetes mellitus with hyperglycemia, with long-term current use of insulin (HCC) LIPID PANEL Routine 06/03/2019 1:25 AM DATA CENTER MANAGER TSH STAT 06/02/2019 4:14 PM DATA CENTER MANAGER from Last 3 Months or Most Recently Relevant to Health Maintenance Results * (ABNORMAL) POCT hemoglobin A1c (07/19/2024 4:15 PM DATA CENTER MANAGER) Hemoglobin A1C, POC 10.2 4.0 - 5.6 % Blood 07/19/2024 4:15 PM DATA CENTER MANAGER us Екатерина Doran DO POINT OF CARE TEST ORDERABL ES Final Result * eGFR (04/25/2024 5:09 PM DATA CENTER MANAGER) eGFR >90 >=60 mL/min/1. 73 m2 [...] last reviewed 2021. Blood 04/25/2024 5:09 PM DATA CENTER MANAGER 04/25/2024 5:13 PM DATA CENTER MANAGER us Maritza Murphy MD LAB BLOOD ORDERABLE S Final Result [facility] ([place]) 1 [facility] [place] [address] * RetinaVue Scanner - OU - Both Eyes (04/18/2024) Anatomical Region Laterality Modality Head Fundus Photograp hy 04/18/2024 us Екатерина Doran DO OPHTH PHOTOGRAPHY Final Res ult * (ABNORMAL) Lipid panel (06/03/2019 1:25 AM DATA CENTER MANAGER) Cholesterol 137 30 - 199 mg/dL [...] ([place]) Blood specimen (specimen) 06/03/2019 1:25 AM DATA CENTER MANAGER 06/03/2019 1:27 AM DATA CENTER MANAGER us Maritza Murphy MD LAB BLOOD ORDERABLE S Final Result [facility] ([place]) 1 [facility] [place] [address] * TSH (06/02/2019 4:14 PM DATA CENTER MANAGER) Thyroid Stimulating Hormone 3.32 0.30 - 4.20 mcIUnit/mL [place] ([place]) Blood specimen (specimen) 06/02/2019 4:14 PM DATA CENTER MANAGER 06/02/2019 4:27 PM DATA CENTER MANAGER us Maritza Murphy MD LAB BLOOD ORDERABLE S Final Result [facility] ([place]) 1 [facility] Department [place] [address] from Last 3 Months or Most Recently Relevant to Health Maintenance Insurance [facility] Advance Directives For more information, please contact: [phone] * Full Code (Latest Code Status on File) Date Activated Date Inactivated Comments 06/02/2019 8:32 PM 06/03/2019 10:19 PM * Full Code Date Activated Date Inactivated Comments 07/12/2017 7:52 PM 07/16/2017 3:59 PM * Full Code Date Activated Date Inactivated Comments 07/12/2017 11:40 AM 07/12/2017 7:52 PM Care Teams Director Nurses' Registry Relationship Specialty Start Date End Date Marzena Gomes NP PCP - General Nurse Practitioner 04/25/24
--- OUTSIDE RECORDS SUMMARY | 2025-05-17 14:20 | XMS_ITS | Encounter Summary ---
Author Organization [facility] Address [address] [place] [address] Phone Care Team Providers Care Cage Cashier Name Role Phone Fadi Bullard MD Unavailable Harini Heath APRN, DIGITAL MEDIA DESIGNER Unavailable [phone] Fritz Crook MD Primary Care Provider [phone] Marzena Gomes QA TESTER, [facility] Primary Care Provider Reason for Visit * Reason Comments Medication Refill Encounter Details Date Type Department Care Team (Late st Contact Info) Description 09/14/2023 Refill [facility] Medical Group - Endocrinology - [place] [address] [place] [address] Fadi Bullard MD #[address] [address] Medication Refill Social History Tobacco [...] st Contact Info) Description 07/05/2025 11:15 AM TIMBER SUPERVISOR Office Visit [facility] - [place] [address] [place] [address] Fadi Bullard MD #[address] [address] documented as of this encounter Visit Diagnoses Not on filedocumented in this encounter Additional Health Concerns Assessment Noted Time PHQ-9 Depression Total Score: 5 07/25/19 21 4:00 PM TIMBER SUPERVISOR documented as of this encounter Care Teams Cage Cashier Relationship Specialty Start Date End Date Fritz Crook MD #[address] [address] PCP - General Primary Care 12/10/22 08/08/24 Marzena Gomes APRN, DIGITAL MEDIA DESIGNER #[address] [address] PCP - General Advanced Practice Nurse 12/07/24 Fadi Bullard MD #[address] [address] Consulting Physician Internal Medicine 01/08/16 5 Harini Heath APRN, DIGITAL MEDIA DESIGNER 2 [facility] [address] [place] [address] Certified Nurse Practitioner 06/24/16 documented as of this encounter
--- OUTSIDE RECORDS SUMMARY | 2025-05-17 14:20 | XMS_ITS | Encounter Summary ---
Author Organization [facility] Address [address] [place] [address] Phone Care Team Providers Care Eyeletter Name Role Phone Fadi Bullard MD Unavailable Harini Heath APRN, GRAFFITI CLEANER Unavailable [phone] Fritz Crook MD Primary Care Provider [phone] Marzena Gomes PSYCHIATRIC THERAPIST, [facility] Primary Care Provider Reason for Visit * Reason Comments Medication Refill Encounter Details Date Type Department Care Team (Late st Contact Info) Description 12/23/2023 Refill [facility] Medical Group - Family Medicine [facility] [address] [place] [phone] Fritz Crook MD #[address] [address] Medication Refill Social History Tobacco Use Types [...] st Contact Info) Description 07/05/2025 11:15 AM PARTS WASHER Office Visit [facility] - Endocrinology - [place] [address] [place] [address] Fadi Bullard MD #2 [facility] [address] [place] [address] documented as of this encounter Visit Diagnoses Not on filedocumented in this encounter Additional Health Concerns Assessment Noted Time PHQ-9 Depression Total Score: 5 07/25/19 21 4:00 PM PARTS WASHER documented as of this encounter Care Teams Eyeletter Relationship Specialty Start Date End Date Fritz Crook MD #[address] [address] PCP - General Primary Care 12/10/22 08/08/24 Marzena Gomes APRN, GRAFFITI CLEANER #[address] [address] PCP - General Advanced Practice Nurse 12/07/24 Fadi Bullard MD #[address] [address] Consulting Physician Internal Medicine 01/08/16 5 Harini Heath APRN, GRAFFITI CLEANER 2 [facility] [address] [place] [address] Certified Nurse Practitioner 06/24/16 documented as of this encounter
--- OUTSIDE RECORDS SUMMARY | 2025-05-17 14:20 | XMS_ITS | Encounter Summary ---
Author Organization [facility] Address [address] [place] [address] Phone Care Team Providers Care Ends Down Checker Name Role Phone Fritz Crook MD Primary Care Provider [phone] Fadi Bullard MD Unavailable Harini Heath APRN, COTTON GINNER HELPER Unavailable [phone] Fritz Crook MD Primary Care Provider [phone] Marzena Gomes APRN, [facility] Primary Care Provider Reason for Visit * Reason Comments Medication Refill Encounter Details Date Type Department Care Team (Late st Contact Info) Description 02/06/2021 Refill [facility] Medical Group - Family Medicine [facility] [address] [place] [address] Fritz Crook MD #[address] [address] Medication Refill Social History Tobacco Use Types [...] st Contact Info) Description 07/05/2025 11:15 AM PROFESSIONAL NURSING ASSISTANT Office Visit [facility] Medical Group - Endocrinology [facility] [address] [place] [address] Fadi Bullard MD #[address] [address] documented as of this encounter Visit Diagnoses Diagnosis Anxiety and depression Dysthymic disorder documented in this encounter Additional Health Concerns Infection Onset Date Last Indicated Resolved Time COVID - 19 06/18/2021 06/18/2021 07/08/2021 12:1 6 AM PROFESSIONAL NURSING ASSISTANT COVID - 19 Confirmed 06/18/2021 06/18/2021 022 12:16 AM PROFESSIONAL NURSING ASSISTANT Assessment Noted Time PHQ-9 Depression Total Score: 5 07/25/19 21 4:00 PM PROFESSIONAL NURSING ASSISTANT documented as of this encounter Care Teams Ends Down Checker Relationship Specialty Start Date End Date Fritz Crook MD #2 [facility] [address] [place] [address] PCP - General Family Medicine 05/08/15 04/05/22 Fritz Crook MD #2 [facility] [address] [place] [address] PCP - General Primary Care 12/10/22 08/08/24 Marzena Gomes APRN, COTTON GINNER HELPER 2 [facility] [address] [place] [address] PCP - General Advanced Practice Nurse 12/07/24 Fadi Bullard MD #2 [facility] [address] [place] [address] Consulting Physician Internal Medicine 01/08/16 5 Harini Heath APRN, COTTON GINNER HELPER 2 [facility] [address] [place] [address] Certified Nurse Practitioner 06/24/16 documented as of this encounter
--- OUTSIDE RECORDS SUMMARY | 2025-05-17 14:20 | XMS_ITS | Encounter Summary ---
Author Organization [facility] Address [address] [place] [address] Phone Care Team Providers Care Shuttle Fitting Supervisor Name Role Phone Fritz Crook MD Primary Care Provider [phone] Fadi Bullard MD Unavailable Harini Heath APRN, [facility] Unavailable [phone] Fritz Crook MD Primary Care Provider [phone] Marzena Gomes APPRENTICE LINEM[employer] TH[employer] STEP, [facility] Primary Care Provider Reason for Visit * Reason Onset Date Comments Medication Refill 07/02/2020 Encounter Details Date Type Department Care Team (Late st Contact Info) Description 07/02/2020 [facility]ill [facility] [address] [place] [phone] Fritz Crook MD #[address] [address] Medication Refill Social History Tobacco Use Types [...] lab visit is 07/06/20 - OV 07/11/20 L STOCK FACER * Telephone Encounter - Suzan Ballard RN - 07/03/2020 10:43 AM CST OV 07/06/20 L STOCK FACER * Telephone Encounter - Suzan Ballard RN [...] Outpatient Visits 4 months ago Essential hypertension [facility] Fritz Durbin MD 9 months ago Essential hypertension [facility] Fritz Durbin MD 1 year ago Type 2 diabetes mellitus without complication, with long-term current use of insulin (HCC) [facility] Fritz Pickett MD 1 year ago Anxiety [facility] Fritz Durbin MD 1 year ago Essential hypertension [facility] Fritz Durbin MD Upcoming Appointments Future Appointments In 3 days [facility], [facility] In [address] [facility] at: Virtual Visit In 1 week Fritz Crook MD [facility] HI RANGER OPERATOR - Recent and Past Visits Recent Visits [...] Outpatient Visits 4 months ago Essential hypertension [facility] Fritz Durbin MD 9 months ago Essential hypertension [facility] Fritz Durbin MD 1 year ago Type 2 diabetes mellitus without complication, with long-term current use of insulin (HCC) [facility] Fritz Durbin MD 1 year ago Anxiety [facility] Fritz Durbin MD 1 year ago [facility]ential [facility] Upcoming Appointments Future Appointments In 3 days [facility]IAN [facility], [facility] In [address] [facility] Endocrinology [facility] Arrive at: Virtual Visit In 1 week Fritz Crook MD [facility] HI RANGER OPERATOR - Recent and Past Visits Recent Visits Date Type Provider Dept 02/17/20 Office Visit Fritz Crook MD [facility] 10/05/19 Telemedicine Fritz Crook MD [facility] 07/04/19 Office Visit Fritz Crook MD [facility] Showing recent visits within past 460 days with a meds authorizing provider and meeting all other requirements Future Appointments Date Type Provider Dept 07/11/20 Appointment Fritz Crook MD [facility] Showing future appointments within next 90 days with a meds authorizing provider and meeting all other requirements L STOCK FACER * Telephone Encounter - Erika Dawn - [...] scripts) 30 Pharmacy preference for this medication: [id number] [facility] Outcome: [x]Medication pended, routed to surescripts []Medication refused []Informed caller of refills at pharmacy []Additional message to medication management RN []Verbal authorization for written order to pharmacy []Additional message to provider []Verified medication with pharmacy Erika Medication Management L STOCK FACER documented in this encounter Plan of Treatment Upcoming Encounters Date Type Department Care Team (Late st Contact Info) Description 07/05/2025 11:15 AM SMALL STOCK FACER Office Visit [facility] - [place] [address] [place] [address] Fadi Bullard MD #[address] [address] documented as of this encounter Visit Diagnoses Diagnosis Anxiety and depression Dysthymic disorder documented in this encounter Additional Health Concerns Infection Onset Date Last Indicated Resolved Time COVID - 19 06/18/2021 06/18/2021 07/08/2021 12:1 6 AM SMALL STOCK FACER COVID - 19 Confirmed 06/18/2021 06/18/2021 022 12:16 AM SMALL STOCK FACER Assessment Noted Time PHQ-9 Depression Total Score: 0 07/04/19 20 8:10 AM SMALL STOCK FACER documented as of this encounter Care Teams Shuttle Fitting Supervisor Relationship Specialty Start Date End Date Fritz Crook MD #2 [facility] [address] [place] [address] PCP - General Family Medicine 05/08/15 04/05/22 Fritz Crook MD #2 [facility] [address] [place] [address] PCP - General Primary Care 12/10/22 08/08/24 Marzena Gomes APRN, ACQUISITION PROFESSIONAL 2 [facility] [address] [place] [address] PCP - General Advanced Practice Nurse 12/07/24 Fadi Bullard MD #2 [facility] [address] [place] [address] Consulting Physician Internal Medicine 01/08/16 Harini Curran APRN, ACQUISITION PROFESSIONAL 2 [facility] [address] [place] [address] Certified Nurse Practitioner 06/24/16 documented as of this encounter
--- OUTSIDE RECORDS SUMMARY | 2025-05-17 14:20 | XMS_ITS | Clinical Summary ---
Author Organization [facility] Address [address] [facility] [place] [address] Phone Care Team Providers Care Mechanical Adjuster Name Role Phone Pass, Hariniparam Rojo APRN, AMERICAN HISTORY PROFESSOR Unavailable [phone] Marzena Gomes AUTOMATION ANALYST, AMERICAN HISTORY PROFESSOR Primary Care Provider Allergies No known active allergies Medications Insulin Pen Needle (Pen [place]) 32G X 4 MM MiscIndications :Type 2 [...] 6 Each 3 5 Active Continuous Glucose Director New Product (FreeStyle Darya 3 [place]) DeviceIndicatio ns:Type 2 diabetes mellitus with other [...] 04/13/2025 Travel 04/07/2025 Transcribe Orders [facility] Central Scheduling [address] [place] [address] Marzena Gomes, AUTOMATION ANALYST, AMERICAN HISTORY PROFESSOR Low back pain, unspecified back pain laterality, [...] st Contact Info) Description 07/05/2025 11:15 AM LITERACY SPECIALIST Office Visit [facility] - [place] [address] [place] [address] Fadi Bullard MD [address] [phone] Health Maintenance Due Date Last Done Comments [...] 03/03/2022 1 2:00 AM CDT PATHOLOGY CYTOLOGY PEPPER CUTTER Routine 02/03/2018 HEPATITIS C ANTIBODY Routine 08/01/2015 8:56 AM LITERACY SPECIALIST Employee exposure to body fluids from Last 3 Months or Most Recently Relevant to Health Maintenance Results * (ABNORMAL) POCT GLYCOSYLATED HEMOGLOBIN (12/07/2024 2:49 PM CDT) Pathologist [facility] HGB-A1C 10.3(A) 4 - 6 % Blood [...] DERABLES Final Result SCAN * PATHOLOGY CYTOLOGY PEPPER CUTTER (02/03/2018) Specimen of unknown material (specimen) us Alma Delia Hernandez APRN, CNP PATHOLOGY/CYTOLOGY ORDERA BLES Final Result * HEPATITIS C ANTIBODY (08/01/2015 8:56 AM LITERACY SPECIALIST) Pathologist [facility] hepatitis C antibody 0.12 <1 S/CO 08/01/2015 10:10 PM LITERACY SPECIALIST [facility] Comment: Signal/Cutoff ratio < 0.79 is Nondetected Signal/Cutoff ratio 0.80-0.99 is Grayzone Signal/Cutoff ratio > 0.99 is Detected Supplemental assays are recommended if signal/cutoff ratio is >/=1.00. Signal/cutoff ratio result >/= 5.00 is 97% predictive of positivity for recombinant immunoblot assay (RIBA) and will be reported to the [place] Department of Public Health as required. Blood specimen (specimen) Arterial Line / Unknown 08/01/2015 8:56 AM LITERACY SPECIALIST 08/01/2015 11:26 AM LITERACY SPECIALIST us Jesse Greene MD CHEMISTRY ORDERABLES Final R esult [facility] [address] [place] [address] from Last 3 Months or Most Recently Relevant to Health Maintenance Insurance [employer] Care Teams Mechanical Adjuster Relationship Specialty Start Date End Date Marzena Gomes, AUTOMATION ANALYST, AMERICAN HISTORY PROFESSOR 2 [facility] [address] [place] [address] PCP - General Advanced Practice Nurse 12/07/24 Harini Heath APRN, AMERICAN HISTORY PROFESSOR 2 [facility] [address] [place] [address] Certified Nurse Practitioner 06/24/16
--- OUTSIDE RECORDS SUMMARY | 2025-05-17 14:20 | XMS_ITS | Encounter Summary ---
Author Organization [facility] Address [address] [place] [address] Phone Care Team Providers Care Social Worker Delinquency Prevention Name Role Phone Fadi Bullard MD Unavailable Harini Heath APRN, INSPECTION CLERK Unavailable [phone] Fritz Crook MD Primary Care Provider [phone] Marzena Gomes EXPERIMENTAL ROCKET SLED MECHANIC, [facility] Primary Care Provider Reason for Visit * Reason Comments Medication Refill Encounter Details Date Type Department Care Team (Late st Contact Info) Description 04/22/2023 Refill [facility] Medical Group - Family Medicine [facility] #2 [place] [phone] Fritz Crook MD #[address] [address] Medication Refill Social History Tobacco Use Types [...] st Contact Info) Description 07/05/2025 11:15 AM DRAFTER Office Visit [facility] [place] #2 [place] [address] Fadi Bullard MD #2 [facility] [address] [place] [address] documented as of this encounter Visit Diagnoses Not on filedocumented in this encounter Additional Health Concerns Assessment Noted Time PHQ-9 Depression Total Score: 5 07/25/19 21 4:00 PM DRAFTER documented as of this encounter Care Teams Social Worker Delinquency Prevention Relationship Specialty Start Date End Date Fritz Crook MD #[address] [address] PCP - General Primary Care 12/10/22 08/08/24 Marzena Gomes APRN, INSPECTION CLERK #[address] [address] PCP - General Advanced Practice Nurse 12/07/24 Fadi Bullard MD #[address] [address] Consulting Physician Internal Medicine 01/08/16 5 Harini Heath APRN, INSPECTION CLERK 2 [facility] [address] [place] [address] Certified Nurse Practitioner 06/24/16 documented as of this encounter
--- OUTSIDE RECORDS SUMMARY | 2025-05-17 14:20 | XMS_ITS | Encounter Summary ---
Author Organization [facility] Address [address] [place] [address] Phone Care Team Providers Care Dieing Out Machine Operator Name Role Phone Fadi Bullard MD Unavailable Harini Heath APRN, LOFT RIGGER Unavailable [phone] Fritz Crook MD Primary Care Provider [phone] Marzena Gomes BULK FILLER, [facility] Primary Care Provider Reason for Visit * Reason Comments Medication Refill Encounter Details Date Type Department Care Team (Late st Contact Info) Description 04/10/2023 Refill [facility] Medical Group - Endocrinology - [place] #2 [place] [address] Fadi Bullard MD #[address] [address] Medication Refill Social History Tobacco [...] st Contact Info) Description 07/05/2025 11:15 AM INSPECTOR WATCH TRAIN Office Visit [facility] - [place] #2 [place] [address] Fadi Bullard MD #[address] [address] documented as of this encounter Visit Diagnoses Not on filedocumented in this encounter Additional Health Concerns Assessment Noted Time PHQ-9 Depression Total Score: 5 07/25/19 21 4:00 PM INSPECTOR WATCH TRAIN documented as of this encounter Care Teams Dieing Out Machine Operator Relationship Specialty Start Date End Date Fritz Crook MD #[address] [address] PCP - General Primary Care 12/10/22 08/08/24 Marzena Gomes APRN, LOFT RIGGER #[address] [address] PCP - General Advanced Practice Nurse 12/07/24 Fadi Bullard MD #[address] [address] Consulting Physician Internal Medicine 01/08/16 5 Harini Heath APRN, LOFT RIGGER 2 [facility] [address] [place] [address] Certified Nurse Practitioner 06/24/16 documented as of this encounter
--- OUTSIDE RECORDS SUMMARY | 2025-05-17 14:20 | XMS_ITS | Encounter Summary ---
Author Organization [facility] Address [address] [place] [address] Phone Care Team Providers Care Varitypist Name Role Phone Fadi Bullard MD Unavailable Harini Heath APRN, STORE LOSS PREVENTION MANAGER Unavailable [phone] Fritz Crook MD Primary Care Provider [phone] Marzena Gomes DIRECTOR OF AGRICULTURE, [facility] Primary Care Provider Reason for Visit * Reason Comments Medication Refill Encounter Details Date Type Department Care Team (Late st Contact Info) Description 12/16/2022 Refill [facility] Medical Group - Family Medicine [facility] [address]2 [place] [phone] Fritz Crook MD #[address] [address] Medication Refill Social History Tobacco Use Types [...] st Contact Info) Description 07/05/2025 11:15 AM PRODUCTION SUPPLY EQUIPMENT TENDER Office Visit [facility] - [place] #2 [place] [address] Fadi Bullard MD #2 [facility] [address] [place] [address] documented as of this encounter Visit Diagnoses Not on filedocumented in this encounter Additional Health Concerns Assessment Noted Time PHQ-9 Depression Total Score: 5 07/25/19 21 4:00 PM PRODUCTION SUPPLY EQUIPMENT TENDER documented as of this encounter Care Teams Varitypist Relationship Specialty Start Date End Date Fritz Crook MD #[address] [address] PCP - General Primary Care 12/10/22 08/08/24 Marzena Gomes APRN, STORE LOSS PREVENTION MANAGER #[address] [address] PCP - General Advanced Practice Nurse 12/07/24 Fadi Bullard MD #[address] [address] Consulting Physician Internal Medicine 01/08/16 5 Harini Heath APRN, STORE LOSS PREVENTION MANAGER 2 [facility] [address] [place] [address] Certified Nurse Practitioner 06/24/16 documented as of this encounter
--- OUTSIDE RECORDS SUMMARY | 2025-05-17 14:20 | XMS_ITS | Encounter Summary ---
Author Organization [facility] Address [address] [place] [address] Phone Care Team Providers Care Corporate Executive Chef Name Role Phone Fadi Bullard MD Unavailable Harini Heath APRN, SECURITY INSPECTOR Unavailable [phone] Fritz Crook MD Primary Care Provider [phone] Marzena Gomes SILK SOAKER, [facility] Primary Care Provider Reason for Visit * Reason Comments Medication Refill Encounter Details Date Type Department Care Team (Late st Contact Info) Description 12/22/2023 Refill [facility] Medical Group - Endocrinology - [place] #2 [place] [address] Faid Bullard MD #[address] [address] Medication Refill Social History Tobacco [...] st Contact Info) Description 07/05/2025 11:15 AM LAND SURVEY TECHNICIAN Office Visit [facility] - [place] #2 [place] [address] Fadi Bullard MD #[address] [address] documented as of this encounter Visit Diagnoses Not on filedocumented in this encounter Additional Health Concerns Assessment Noted Time PHQ-9 Depression Total Score: 5 07/25/19 21 4:00 PM LAND SURVEY TECHNICIAN documented as of this encounter Care Teams Corporate Executive Chef Relationship Specialty Start Date End Date Fritz Crook MD #[address] [address] PCP - General Primary Care 12/10/22 08/08/24 Marzena Gomes APRN, SECURITY INSPECTOR #[address] [address] PCP - General Advanced Practice Nurse 12/07/24 Fadi Bullard MD #[address] [address] Consulting Physician Internal Medicine 01/08/16 Harini Curran APRN, SECURITY INSPECTOR 2 [facility] [address] [place] [address] Certified Nurse Practitioner 06/24/16 documented as of this encounter
--- OUTSIDE RECORDS SUMMARY | 2025-05-17 14:21 | XMS_ITS | Encounter Summary ---
Author Organization [facility] Address [address] [place] [address] Phone Care Team Providers Care Ancillary Services Manager Name Role Phone Fritz Crook MD Primary Care Provider [phone] Fadi Bullard MD Unavailable Harini Heath APRN, [facility] Unavailable [phone] Fritz Crook MD Primary Care Provider [phone] Marzena Gomes APRN, [facility] Primary Care Provider Reason for Visit * Reason Comments Medication Refill Encounter Details Date Type Department Care Team (Late st Contact Info) Description 05/31/2020 Refill [facility] Medical Group - Family Medicine [facility] #2 [place] [address] Fritz Crook MD #[address] [address] Medication Refill Social History Tobacco Use Types [...] 05/31/2020 4:19 PM CST Prescription pending signature RVISOR SEAMING * Telephone Encounter - Suzan Ballard RN [...] Outpatient Visits 3 months ago Essential hypertension [facility] Fritz Durbin MD 7 months ago Essential hypertension [facility] Fritz Durbin MD 11 months ago Type 2 diabetes mellitus without complication, with long-term current use of insulin ([facility]) [facility] Fritz Pickett MD 1 year ago Anxiety [facility] Fritz Durbin MD 1 year ago Essential hypertension [facility] Fritz Durbin MD Upcoming Appointments Future Appointments In 2 weeks [facility] PHYSICIAN [facility], [facility] In 2 weeks Fritz Crook MD [facility] SENIOR SQL SERVER DATABASE DEVELOPER - Recent and Past Visits Recent Visits Date Type Provider Dept 02/17/20 Office Visit Fritz Crook MD [facility] 10/05/19 Telemedicine Fritz Crook MD [facility] 07/04/19 Office Visit [facility] MD [facility] Showing recent visits within past 460 days with a meds authorizing provider and meeting all other requirements Future Appointments Date Type Provider Dept 06/20/20 Appointment [facility] Showing future appointments within next 90 days with a meds authorizing provider and meeting all other requirements RVISOR SEAMING documented in this encounter Plan of Treatment Upcoming Encounters Date Type Department Care Team (Late st Contact Info) Description 07/05/2025 11:15 AM SUPERVISOR SEAMING Office Visit [facility] - [facility] - [place] #2 [place] [address] Fadi Bullard MD #[address] [address] documented as of this encounter Visit Diagnoses Diagnosis Anxiety and depression Dysthymic disorder documented in this encounter Additional Health Concerns Infection Onset Date Last Indicated Resolved Time COVID - 19 06/18/2021 06/18/2021 07/08/2021 12:1 6 AM SUPERVISOR SEAMING COVID - 19 Confirmed 06/18/2021 06/18/2021 022 12:16 AM SUPERVISOR SEAMING Assessment Noted Time PHQ-9 Depression Total Score: 0 07/04/19 20 8:10 AM SUPERVISOR SEAMING documented as of this encounter Care Teams Ancillary Services Manager Relationship Specialty Start Date End Date Fritz Crook MD #2 [facility] [address] [place] [address] PCP - General Family Medicine 05/08/15 04/05/22 Fritz Crook MD #[address] [address] PCP - General Primary Care 12/10/22 08/08/24 Marzena Gomes APRN, CARDIOLOGY PHYSICIAN ASSISTANT 2 [facility] [address] [place] [address] PCP - General Advanced Practice Nurse 12/07/24 Fadi Bullard MD #2 [facility] [address] [place] [address] Consulting Physician Internal Medicine 01/08/16 5 Harini Heath APRN, CARDIOLOGY PHYSICIAN ASSISTANT 2 [facility] [address] [place] [address] Certified Nurse Practitioner 06/24/16 documented as of this encounter
--- OUTSIDE RECORDS SUMMARY | 2025-05-17 14:21 | XMS_ITS | Clinical Summary ---
Author Organization [facility] Address [address] [place] [address] [place] [address] Care Team Providers Care Utility Locate Technician Name Role Phone Fritz Crook MD Primary Care Provider [phone] Source Comments [facility],non-owned Affiliates and Associated Physician Practices is amultiple site organization consisting of ambulatory clinics and hospital sitesin [place], [place], [place] and [place]. This disclosure is being madepursuant to the Care Everywhere program and may not contain all information available regarding this patient. 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
--- OUTSIDE RECORDS SUMMARY | 2025-05-17 14:21 | XMS_ITS | Encounter Summary ---
Author Organization [facility] Address [address] [place] [address] Phone Care Team Providers Care Law Firm Partner Name Role Phone Fritz Crook MD Primary Care Provider [phone] Fadi Bullard MD Unavailable Harini Heath APRN, VOICE NETWORK ADMINISTRATOR Unavailable [phone] Fritz Crook MD Primary Care Provider [phone] Marzena Gomes APRN, [facility] Primary Care Provider Reason for Visit * Reason Comments Medication Refill Encounter Details Date Type Department Care Team (Late st Contact Info) Description 03/01/2021 Refill [facility] Medical Group - Family Medicine [facility] #2 [place] [address] Fritz Crook MD #[address] [address] Medication Refill Social History Tobacco Use Types [...] st Contact Info) Description 07/05/2025 11:15 AM CIRCUIT BOARD INSPECTOR Office Visit [facility] #2 [place] [address] Fadi Bullard MD #[address] [address] documented as of this encounter Visit Diagnoses Diagnosis Anxiety and depression Dysthymic disorder documented in this encounter Additional Health Concerns Infection Onset Date Last Indicated Resolved Time COVID - 19 06/18/2021 06/18/2021 07/08/2021 12:1 6 AM CIRCUIT BOARD INSPECTOR COVID - 19 Confirmed 06/18/2021 06/18/2021 022 12:16 AM CIRCUIT BOARD INSPECTOR Assessment Noted Time PHQ-9 Depression Total Score: 5 07/25/19 21 4:00 PM CIRCUIT BOARD INSPECTOR documented as of this encounter Care Teams Law Firm Partner Relationship Specialty Start Date End Date Fritz Crook MD #2 [facility] [address] [place] [address] PCP - General Family Medicine 05/08/15 04/05/22 Fritz Crook MD #2 [facility] [address] [place] [address] PCP - General Primary Care 12/10/22 08/08/24 Marzena Gomes APRN, VOICE NETWORK ADMINISTRATOR [address] [facility] [address] [place] [address] PCP - General Advanced Practice Nurse 12/07/24 Fadi Bullard MD #2 [facility] [address] [place] [address] Consulting Physician Internal Medicine 01/08/16 Harini Curran APRN, VOICE NETWORK ADMINISTRATOR [address] [facility] [address] [place] [address] Certified Nurse Practitioner 06/24/16 documented as of this encounter
--- OUTSIDE RECORDS SUMMARY | 2025-05-17 14:21 | XMS_ITS | Encounter Summary ---
Author Organization [facility] Address [address] [place] [address] Phone Care Team Providers Care Advertising Display Rotator Name Role Phone Fadi Bullard MD Unavailable Harini Heath APRN, MAJOR CASE DETECTIVE Unavailable [phone] Fritz Crook MD Primary Care Provider [phone] Marzena Gomes PRESS BRAKE OPERATOR, [facility] Primary Care Provider Reason for Visit * Reason Comments Medication Refill Encounter Details Date Type Department Care Team (Late st Contact Info) Description 07/02/2022 Refill [facility] Medical Group - Family Medicine [facility] #2 [place] [address] Fritz Crook MD #[address] [address] Medication Refill Social History Tobacco Use Types [...] st Contact Info) Description 07/05/2025 11:15 AM HTML WEB DEVELOPER Office Visit [facility] - [place] #2 [place] [address] Fadi Bullard MD #2 [facility] [address] [place] [address] documented as of this encounter Visit Diagnoses Not on filedocumented in this encounter Additional Health Concerns Assessment Noted Time PHQ-9 Depression Total Score: 5 07/25/19 21 4:00 PM HTML WEB DEVELOPER documented as of this encounter Care Teams Advertising Display Rotator Relationship Specialty Start Date End Date Fritz Crook MD #[address] [address] PCP - General Primary Care 12/10/22 08/08/24 Marzena Gomes APRN, MAJOR CASE DETECTIVE #[address] [address] PCP - General Advanced Practice Nurse 12/07/24 Fadi Bullard MD #[address] [address] Consulting Physician Internal Medicine 01/08/16 5 Harini Heath APRN, MAJOR CASE DETECTIVE 2 [facility] [address] [place] [address] Certified Nurse Practitioner 06/24/16 documented as of this encounter
== END 2025-05-17 14:17 | disposition home or self-care (01) ==
PROVIDERS: PCP Nurse Practitioner Family; Visit Provider Internal Medicine
DX: R09.89 Other specified symptoms and signs involving the circulatory and respiratory systems (principal); I65.23 Occlusion and stenosis of bilateral carotid arteries
CPT/HCPCS: 93880